=== PATIENT | male | born 1980 | race Hispanic/Latino ===

== ENCOUNTER 2019-06-29 18:58 | Emergency (ER) | payer SELFPAY ==
[2019-06-29 19:00] VITALS: BP 132/88; PULSE 72; RESP 16; TEMP 36.3; O2SAT 99
[2019-06-29 19:19] LABS: Glucose Point of Care 250 (65-105)
--- NOTE | 2019-06-29 19:59 | ED.RECABL ---
HPI - Recheck/Abnormal Lab/Rx General Chief Complaint: Recheck/Abnormal Lab/Rx Stated Complaint: ELEVATED BLOOD SUGAR Time Seen by Provider: 06/29/19 19:10 Source: patient Mode of arrival: EMS Limitations: language barrier (chinese speaking so I used video interpreter for the deaf ck) History of Present Illness HPI narrative: This patient is a 39 yo male with h/o DM type II who presents for evaluation of elevated blood sugars. Patient states he started back taking his metformin 2 weeks ago after being off the medication for a while. He has been checking his blood sugars every day and he states his BS is running from 200s -400. He called his primary care physician who told him to come to ER. He denies nausea, vomiting, chest pain, abdominal pain or weakness. He was having increased urination and that is why he started taking his medication again. Related Data Home Medications Medication Instructions Recorded Confirmed lovastatin 10 mg PO QPM 06/29/19 metformin 500 mg PO DAILY 06/29/19 Allergies Allergy/AdvReac Type Severity Reaction Status Date / Time No Known Allergies Allergy Verified 06/29/19 20:13 Review of Systems Review of Systems: All systems reviewed & are unremarkable except as noted in HPI and below Constitutional: Constitutional: Denies fever(s) and Denies weakness Cardiovascular: Cardiovascular: Denies chest pain Respiratory: Respiratory: Denies cough and Denies dyspnea Gastrointestinal: Gastrointestinal: Denies abdominal pain, Denies nausea and Denies vomiting Neurologic: Reports headache(s) Endocrine: Endocrine: Reports polydipsia and Reports polyuria [facility] Past Medical History Medical History (Updated 06/30/19 @ 00:00 by Mario Buck) Diabetes mellitus Hyperlipidemia Social History Social History (Updated 06/29/19 @ 20:01 by Marlyn Eckert MD) Smoking packs per day: 0 Smoking cigarettes per day: 0.0 Smoking status: Never smoker Exam Const: General: no acute distress and alert Nutritional Appearance: obese centrally obese Orientation/consciousness: patient oriented x3 HENMT: Head: normocephalic and atraumatic Mouth: Yes Normal oral and palatal mucosa present, Yes lip normal and Yes oropharynx normal Throat: posterior oropharynx normal Eyes: Pupils: Equal, round and reactive pupils present EOM: EOMs intact bilaterally Chest: Chest palpation & inspection: normal inspection of the chest Resp: Effort & Inspection: normal respiratory effort Auscultation: clear to auscultation bilaterally Cardio: Rate: regular rate Rhythm: regular rhythm Heart sounds: no murmurs GI: Auscultation: normal bowel sounds Skin: General skin exam: normal color Rashes: no rashes Neuro: General: patient oriented x3 and moves all extremities Extrem: General: no pedal edema Psych: Mental Status: mental status grossly normal Affect: normal affect Course Reevaluation(s) Reevaluation #1: I have discussed with patient that he will need to call office in the morning for appointment to make medication adjustments. Date: 06/29/19 Time: 20:46 Consultations Consultation #1: I spoke with Chas , advanced provider in Dr. Márquez office, who states she sees patients. She states patient can call office and they will get him in this week to make medication adjustments. Date: 06/29/19 Time: 20:45 Vital Signs Vital signs: Vital Signs Temperature 97.3 F L 06/29/19 19:00 Pulse Rate 72 06/29/19 19:00 Respiratory Rate 16 06/29/19 19:00 Blood Pressure 132/88 06/29/19 19:00 Pulse Oximetry 99 06/29/19 19:00 Temperature 97.8 F 06/29/19 21:21 Pulse Rate 71 06/29/19 21:21 Respiratory Rate 16 06/29/19 21:21 Blood Pressure 130/78 06/29/19 21:21 Pulse Oximetry 98 06/29/19 21:21 MDM - Recheck/Abnormal Lab/Rx Lab Data Attestation: I reviewed the patient's lab results. Result diagrams: 06/29/19 20:07 06/29/19 20:07 Labs:
[2019-06-29 20:15] LABS: Basophils Percent Auto 0.5 % (0.2-1.2); Eosinophils Absolute Auto 0.1 K/mm3 (0-0.3); Eosinophils Percent Auto 1.3 % (0-4.4); Hematocrit 45.6 % (42.0-52.0); Hemoglobin 16.4 g/dL (14.0-18.0); Immature Granulocyte Absolute 0.03 K/mm3 (0.00-0.031); Immature Granulocyte Percent A 0.5 % (0-0.5); Lymphocytes Absolute Auto 2.24 K/mm3 (0.9-3.2); Lymphocytes Percent Auto 36.9 % (18.3-44.2); Mean Corpuscular Volume 83.4 fl (80-100); Mean Platelet Volume 11.1 fl (7.4-10.4); Monocytes Absolute Auto 0.6 K/mm3 (0.1-0.6); Monocytes Percent Auto 9.4 % (2.6-8.5); Neutrophils Absolute Auto 3.1 K/mm3 (1.3-6.7); Neutrophils Percent Auto 51.4 % (45.5-73.1); Platelet Count Result 189 k/mm3 (150-375); Red Blood Count 5.47 M/mm3 (4.6-6.20); Red Cell Distribution Width 11.9 % (11.5-14.5); White Blood Count 6.1 K/mm3 (4.5-10.0)
[2019-06-29] MEDS: SODIUM CHLORIDE 0.9% IV 1,000 ML 999 ML IV CONT (20:16)
[2019-06-29 20:22] LABS: Add Urine Microscopic? YES; Appearance Urine Clear (Clear); Bilirubin Urine Negative (Negative); Blood Urine Negative (Negative); Color Urine Yellow (Yellow); Glucose Urine UA 2+ mg/dL (Negative); Ketones Urine Negative (Negative); Leukocyte Esterase Ur Negative LEU/UL (Negative); Mucus Urine Few /lpf; Nitrate Urine Negative (Negative); Protein Urine Negative (Negative); RBC Urine 0-2 /hpf (0-2); Specific Grav Ur 1.014 (1.001-1.035); Urobilinogen Urine Negative mg/dL (<2.0); WBC Urine 0-3 /hpf
[2019-06-29 20:30] LABS: Alanine Aminotransferase 45 U/L (4-50); Albumin Level 4.8 g/dL (3.5-5.1); Alkaline Phosphatase 117 U/L (38-126); Aspartate Amino Transferase 36 U/L (17-59); Bilirubin,Total 0.6 mg/dL (0.2-1.3); Blood Urea Nitrogen 10 mg/dL (9-20); Calcium 9.1 mg/dL (8.4-10.2); Carbon Dioxide 23 mmol/L (22-30); Chloride 103 mmol/L (98-107); Estimated CRCL calculation 108 ml/min; Estimated Glomerular Filt Rate > 60; Glucose 245 mg/dL (75-110); Potassium 4.1 mmol/L (3.4-5.0); Sodium 137 mmol/L (137-145)
[2019-06-29 21:21] VITALS: BP 130/78; PULSE 71; RESP 16; TEMP 36.6; O2SAT 98
== END 2019-06-29 21:24 | disposition home or self-care (01) ==
PROVIDERS: Emergency Provider General Practice
DX: E11.65 Type 2 diabetes mellitus with hyperglycemia (principal); E78.5 Hyperlipidemia, unspecified; Z79.84 Long term (current) use of oral hypoglycemic drugs
CPT/HCPCS: 36415; 80053; 81001; 82948; 85025; 96360; 99283; J7030

== ENCOUNTER 2019-12-27 13:25 | Emergency (ER) | payer MEDICAID, SELFPAY ==
--- NOTE | ~2019-12-27 | CT_ITS ---
EXAMINATION: CT abdomen pelvis w con DATE: 12/27/2019 15:15 INDICATION: Right flank pain. Generalized abdominal pain. TECHNIQUE: Computed tomography (CT) of the abdomen and pelvis was performed with 100 mL Omnipaque 350 intravenous contrast. Automated exposure control and iterative reconstruction technique were employe d. The dose-length product was 1022.66 mGy-cm. COMPARISON: None. FINDINGS: The visualized portions of the lung bases demonstrate patchy airspace and groundglass opaci ties in the lower lobes, lingula, and right middle lobe, consistent with pneumonia. No pleural effusi on. The heart size is normal. No pericardial effusion. The liver, gallbladder, spleen, pancreas, adre nal glands, and right kidney are normal. There is a 14 mm hypodense mass in left kidney. There are no dilated loops of bowel. The appendix is normal. There are no pathologically enlarged lymph nodes. Th ere is no free intraperitoneal fluid. There is mild lumbar spondylosis. IMPRESSION: 1. Multifocal pneumonia. 2. 14 mm left kidney mass, which may be a hemorrhagic cyst or less likely a neoplasm. Consider abdome n MRI without and with contrast. Reviewed, dictated and finalized at location A. ER SULFATE IMPRESSION: 1. Multifocal pneumonia. 2. 14 mm left kidney mass, which may be a hemorrhagic cyst or less likely a jorge plasm. Consider abdomen MRI without and with contrast.
--- NOTE | ~2019-12-27 | CT_ITS ---
EXAMINATION: CT brain wo con EXAM DATE: 12/27/2019 14:24 INDICATION: Right eye pain and and worst headache of life. TECHNIQUE: Spiral CT of the head was performed without contrast. Axial, coronal and sagittal images were reviewed. The dose-length product (DLP) for this examination was 605.33 mGy-cm. The exposure w as tailored according to patient size, and iterative reconstruction (ASIR) was used as additional dos e reduction technique. There is no prior study for comparison. FINDINGS: There is no acute intraparenchymal hemorrhage. No evidence of intraparenchymal brain mass lesion. No evidence of acute infarction. There is no mass effect or midline shift. The ventricles are normal in size. There are no extra-axial collections. There are no acute calvarial fractures. T he orbits are unremarkable. Soft tissue is unremarkable. The visualized sinuses and mastoid air juan ls are well aerated. IMPRESSION: 1. Normal head CT examination. Reviewed, dictated and finalized at location B. T POURER
--- NOTE | ~2019-12-27 | XR_ITS ---
EXAMINATION: XR chest 1V INDICATION: Fever and headache TECHNIQUE: Portable AP chest at AP COMPARISON: None available FINDINGS: There are diffuse airspace opacities of the lungs. No pleural effusion or pneumothorax is i dentified. The cardiomediastinal silhouette is normal. The visualized osseous structures are unremark able. Contrast from earlier CT examination partially opacifies the urinary tract. IMPRESSION: 1. Diffuse lung disease, consistent with pneumonia. Reviewed, dictated and finalized at location A. N CLEANER
[2019-12-27 13:43] VITALS: BP 134/79; PULSE 95; RESP 27; TEMP 37.1; O2SAT 93
[2019-12-27 14:09] VITALS: BP 127/81; PULSE 96; RESP 20; TEMP 39.2; O2SAT 93
[2019-12-27 14:14] LABS: Hematocrit 40.1 % (42.0-52.0); Hemoglobin 13.9 g/dL (14.0-18.0); Immature Granulocyte Absolute 0.02 K/mm3 (0.00-0.031); Immature Granulocyte Percent A 0.5 % (0-0.5); Immature Platelet Fraction Pct 3.3 % (0.9-11.2); Lymphocytes Absolute Auto 0.68 K/mm3 (0.9-3.2); Lymphocytes Percent Auto 17.4 % (18.3-44.2); Mean Corpuscular HGB Conc 34.7 g/dl (32-36); Mean Corpuscular Hemoglobin 30.6 pg (26-34); Mean Corpuscular Volume 88.3 fl (80-100); Mean Platelet Volume 10.1 fl (7.4-10.4); Monocytes Absolute Auto 0.3 K/mm3 (0.1-0.6); Monocytes Percent Auto 7.2 % (2.6-8.5); Neutrophils Absolute Auto 2.9 K/mm3 (1.3-6.7); Neutrophils Percent Auto 74.9 % (45.5-73.1); Platelet Count Result 135 k/mm3 (150-375); Red Blood Count 4.54 M/mm3 (4.6-6.20); Red Cell Distribution Width 12.4 % (11.5-14.5); White Blood Count 3.9 K/mm3 (4.5-10.0)
[2019-12-27 14:22] LABS: INR 0.9; Prothrombin Time 12.6 Seconds (11.1-14.7)
[2019-12-27 14:23] LABS: Partial Thromboplastin Time 31.5 SECONDS (22.3-36.8)
[2019-12-27 14:32] LABS: Alanine Aminotransferase 53 U/L (4-50); Albumin Level 4.1 g/dL (3.5-5.1); Alkaline Phosphatase 80 U/L (38-126); Anion Gap 6 mmol/L (8-16); Aspartate Amino Transferase 73 U/L (17-59); Bilirubin,Total 0.6 mg/dL (0.2-1.3); Blood Urea Nitrogen 12 mg/dL (9-20); Calcium 8.6 mg/dL (8.4-10.2); Carbon Dioxide 29 mmol/L (22-30); Chloride 99 mmol/L (98-107); Estimated CRCL calculation 96 ml/min; Estimated Glomerular Filt Rate > 60; Glucose 135 mg/dL (75-110); Potassium 3.8 mmol/L (3.4-5.0); Sodium 134 mmol/L (137-145)
[2019-12-27 14:37] LABS: Amphetamine Screen Urine Negative (Negative); Barbiturate Screen Urine Negative (Negative); Benzodiazepines Screen Urine Negative (Negative); Cannabinoid Screen Urine Negative (Negative); Cocaine Screen Urine Negative (Negative); Methadone Screen Urine Negative (Negative); Opiate Screen Urine Negative (Negative); Phencyclidine Screen Urine Negative (Negative)
[2019-12-27 14:40] VITALS: BP 116/82; PULSE 89; RESP 14; TEMP 38.7; O2SAT 93
[2019-12-27 14:42] LABS: Creatine Kinase 565 U/L (55-170)
[2019-12-27] MEDS: SODIUM CHLORIDE 0.9% IV 1,000 ML 999 ML IV CONT (15:01)
[2019-12-27 15:02] LABS: Erythrocyte Sedimentation Rate 20 mm/hr (0-20)
--- NOTE | 2019-12-27 15:24 | ED.GENADULT ---
HPI - General Adult General Chief complaint: Headache Stated complaint: abd, leg, youssef Time Seen by Provider: 12/27/19 13:41 Source: patient Mode of arrival: ambulatory Limitations: no limitations History of Present Illness HPI narrative: Patient presents with chief complaint of pain behind his right that has been present since Wednesday. Patient denies any trauma to the eye or debris going into the eye. Patient states he took Tylenol and ibuprofen but his symptoms did not remit. Patient denies vision changes, flashes, floaters. Patient denies problems to phobia, nausea, vomiting, diaphoresis. Patient states the other day while he was working he had pain in both of his legs into his left groin but he does not have the pain currently. Patient denies fever, chills, abdominal pain, neck stiffness, issues with urination, shortness of breath or chest pain, cough, rash, loss of taste or smell, sore throat. Related Data Home Medications Medication Instructions Recorded Confirmed lovastatin 10 mg PO QPM 06/29/19 metformin 500 mg PO DAILY 06/29/19 Allergies Allergy/AdvReac Type Severity Reaction Status Date / Time No Known Allergies Allergy Verified 12/27/19 13:46 Review of Systems Review of Systems: Narrative: CONSTITUTIONAL: Denies fever, chills, or sweats. EYES: Reports right eye pain denies visual changes, redness, or discharge. ENT: Denies rhinorrhea, congestion, sore throat, or otalgia. CARDIOVASCULAR: Denies chest pain, palpitations, or edema. RESPIRATORY: Denies cough or dyspnea. GASTROINTESTINAL: Denies abdominal pain, nausea, vomiting, or diarrhea. GENITOURINARY: Denies dysuria or hematuria. SKIN: Denies rash or itching. MUSCULOSKELETAL: Denies back pain, joint pain, or myalgia. NEUROLOGIC: Denies numbness, dizziness, or weakness. PMFSH Past Medical History Medical History (Updated 12/27/19 @ 16:34 by Vanessa Caro PA-C) Diabetes mellitus Hyperlipidemia Social History Social History (Updated 06/29/19 @ 20:01 by Marlyn Eckert MD) Smoking packs per day: 0 Smoking cigarettes per day: 0.0 Smoking status: Never smoker Exam Narrative: Exam Narrative: GENERAL: Well-appearing, well-nourished, and in no acute distress. HEAD: Normocephalic, atraumatic. No tenderness with palpation over temporal region. EYES: PERRLA and EOMI. no erythema. No hyphema. No subconjunctival injection. ENT: Nares clear, no rhinorrhea or epistaxis. Mucous membranes moist. Oropharynx without tonsillar hypertrophy exudate or other lesions. Bilateral TMs pearly finn nonbulging NECK: Supple. No adenopathy or masses. No carotid bruits or JVD CHEST: Clear to auscultation. No respiratory distress. No wheezes rales or rhonchi HEART: Regular rate and rhythm. No murmur heard. Normal peripheral pulses. ABDOMEN: Soft, nontender, nondistended, normal active bowel sounds. EXTREMITIES: Normal range of motion. No edema. SKIN: Warm, dry, no rash. NEURO: No focal deficits. Alert and oriented x3. PSYCH: Normal mood and affect. Course Vital Signs Vital signs: Vital Signs Temperature 98.8 F 12/27/19 13:43 Pulse Rate 95 12/27/19 13:43 Respiratory Rate 27 H 12/27/19 13:43 Blood Pressure 134/79 12/27/19 13:43 Pulse Oximetry 93 12/27/19 13:43 Temperature 101.6 F H 12/27/19 14:40 Pulse Rate 78 12/27/19 16:21 Respiratory Rate 18 12/27/19 16:21 Blood Pressure 132/73 12/27/19 16:21 Pulse Oximetry 94 12/27/19 16:21 Medical Decision Making MDM Narrative Medical decision making narrative: Patient is not short of breath and can ambulate with appropriate O2 saturations between 94 to 95% on room air. Patient has been tested for Covid and instructed of the need to isolate himself and follow the health department guidelines regarding Covid quarantine instructions. Patient instructed to follow-up with his primary care for reevaluation. Patient directed to return to emergency department if he has any emergent sym
[2019-12-27 16:21] VITALS: BP 132/73; PULSE 78; RESP 18; O2SAT 94
[2019-12-28 03:00] LABS: SARS-CoV-2 RNA PCR Positive
== END 2019-12-27 17:16 | disposition home or self-care (01) ==
PROVIDERS: Physician Assistant; Emergency Provider Emergency Medicine
DX: U07.1 COVID-19 (principal); J12.89 Other viral pneumonia; N28.89 Other specified disorders of kidney and ureter
CPT/HCPCS: 36415; 70450; 71045; 74177; 80053; 80307; 82550; 85025; 85055; 85610; 85652; 85730; 87635; 87804; 96361; 96374; 99284; C9803; J0131; J7030; Q9967; U0003

== ENCOUNTER 2019-12-31 13:46 | Inpatient (IN) | payer MEDICAID, OTHER, SELFPAY ==
--- NOTE | ~2019-12-31 | US_ITS ---
EXAMINATION: US venous doppler [facility] DATE: 12/31/2019 15:27 INDICATION: Lower limb pain TECHNIQUE: Clement scale images without and with compression and Doppler images of the bilateral lower e xtremity veins were obtained. COMPARISON: None FINDINGS: The right common femoral vein, profunda femoral vein, femoral vein, popliteal vein, peroneal trunk, p osterior tibial veins, and greater saphenous vein are patent. The left common femoral vein, profunda femoral vein, femoral vein, popliteal vein, peroneal trunk, po sterior tibial veins, and greater saphenous vein are patent. IMPRESSION: 1. Patent bilateral lower extremity veins. No evidence of deep venous thrombosis. Reviewed, dictated and finalized at location A. RINTENDENT BUILDING IMPRESSION: 1. Patent bilateral lower extremity veins. No evidence of deep venous thrombosi s.
--- NOTE | ~2019-12-31 | XR_ITS ---
EXAMINATION: XR chest 1V portable DATE: 12/31/2019 14:08 INDICATION: Shortness of breath. COVID-19 pneumonia. TECHNIQUE: A single frontal view of the chest was obtained. COMPARISON: Chest single view 12/27/19, CT abdomen and pelvis 12/27/19 FINDINGS: There are patchy airspace opacities involving all lung zones bilaterally. No pleural effusi on or pneumothorax. The heart size is normal. IMPRESSION: 1. Worsened diffuse lung disease, consistent with pneumonia. Reviewed, dictated and finalized at location A. S OPERATOR [employer]ON BLOCKS
--- NOTE | ~2019-12-31 | CT_ITS ---
EXAMINATION: CTA chest PE protocol DATE: 12/31/2019 15:50 INDICATION: Shortness of breath and cough, COVID 19 positive TECHNIQUE: Computed tomography angiography (CTA) of the chest was performed with 100 mL Omnipaque-350 intravenous contrast timed to evaluate the pulmonary arteries. Coronal maximum intensity projection 3D-reconstructions were created by the technologist. The dose-length product (DLP) was 694.87 mGy-cm. Automated exposure control and iterative reconstruction technique were employed. COMPARISON: None. FINDINGS: Respiratory motion artifact limits the examination. The pulmonary arteries are well-opacifi ed. No central pulmonary embolism is identified. There are patchy groundglass and airspace opacities with a peripheral and lower lung zone predominance. No pleural effusion or pneumothorax is identified . The heart size is normal. There is mild bilateral hilar and mediastinal lymphadenopathy. The visual ized osseous structures are unremarkable. IMPRESSION: 1. No central pulmonary embolism identified, sensitivity limited by respiratory motion artifact. 2. Commonly reported imaging features of COVID-19 pneumonia are present. Other processes such as infl uenza pneumonia and organizing pneumonia can cause a similar imaging pattern although these are less likely given that the patient is known COVID 19 positive. Reviewed, dictated and finalized at location A. NCIAL ANALYST ACCOUNTANT IMPRESSION: 1. No central pulmonary embolism identified, sensitivity limited by respiratory motion artifact. 2. Commonly reported imaging features of COVID-19 pneumonia are present. Other processes such as influenza pneumonia and organizing pneumonia can cause a zee lar imaging pattern although these are less likely given that the patient is kn own COVID 19 positive.
[2019-12-31 13:46] VITALS: BP 126/78; PULSE 94; RESP 20; TEMP 36.7; O2SAT 87
--- NOTE | 2019-12-31 14:34 | ED.URI ---
HPI - URI/Sore Throat General Chief Complaint: Upper Respiratory Infection Stated Complaint: sob Time Seen by Provider: 12/31/19 13:48 Source: patient Mode of arrival: EMS Limitations: language barrier (used video director of safety) History of Present Illness HPI Narrative: Patient presents to the emergency department for increasing shortness of breath. Reports he was recently seen here and swabbed for covid. He is unsure of his results. He has had cough and congestion. Reports difficulty breathing with cough and exertion. Also reports bilateral lower extremity pain when he walks. Reports chest pain with breathing. Denies fever. Related Data Home Medications Medication Instructions Recorded Confirmed lovastatin 10 mg PO QPM 06/29/19 12/31/19 metformin 500 mg PO BID 06/29/19 12/31/19 Lexapro 10 mg PO DAILY 12/31/19 12/31/19 ProAir HFA 2 puff INHALATION QID 12/31/19 12/31/19 Allergies Allergy/AdvReac Type Severity Reaction Status Date / Time No Known Allergies Allergy Verified 12/31/19 13:57 Review of Systems Review of Systems: Narrative: CONSTITUTIONAL: Denies fever ENT: Reports rhinorrhea, congestion CARDIOVASCULAR: Reports chest pain. Denies edema. RESPIRATORY: Reports cough and dyspnea. MUSCULOSKELETAL: Reports myalgia. All systems reviewed & are unremarkable except as noted in HPI and below PMFSH Past Medical History Medical History (Updated 12/31/19 @ 22:22 by Cristy Mckeon PA-C) Diabetes mellitus Hyperlipidemia Social History Social History (Updated 06/29/19 @ 20:01 by Marlyn Eckert MD) Smoking packs per day: 0 Smoking cigarettes per day: 0.0 Smoking status: Former smoker Alcohol intake: current Drinks per week: 1 Substance use: former Last use: 1 yr ago Gender identity (if verbalized by the patient): Male Spiritual care concerns: No Exam Narrative: Exam Narrative: GENERAL: Well-appearing, obese, and in no acute distress. HEAD: Normocephalic, atraumatic. EYES: EOMI. ENT: Nares clear, no rhinorrhea or epistaxis. Mucous membranes moist. Oropharynx without tonsillar hypertrophy exudate or other lesions. Bilateral TMs pearly finn non-bulging NECK: Supple. No adenopathy or masses. CHEST: Clear to auscultation. No respiratory distress. No wheezes rales or rhonchi HEART: Regular rate and rhythm. No murmur heard. Normal peripheral pulses. EXTREMITIES: Normal range of motion. No edema or erythema. SKIN: Warm, dry, no rash. NEURO: No focal deficits. Alert and oriented x3. PSYCH: Normal mood and affect Course Consultations Consultation #1: Spoke with hospitalist about patient work-up accepts admission Date: 12/31/19 Vital Signs Vital signs: Vital Signs Temperature 98.0 F 12/31/19 13:46 Pulse Rate 94 12/31/19 13:46 Respiratory Rate 20 12/31/19 13:46 Blood Pressure 126/78 12/31/19 13:46 Pulse Oximetry 87 L 12/31/19 13:46 Temperature 98.8 F 12/31/19 20:00 Pulse Rate 80 12/31/19 20:00 Respiratory Rate 18 12/31/19 20:00 Blood Pressure 113/64 12/31/19 20:00 Pulse Oximetry 98 12/31/19 20:00 MDM - URI/Sore Throat MDM Narrative Medical decision making narrative: Patient presents to the emergency department for worsening shortness of breath. Was recently diagnosed with coronavirus. Oxygen saturation in the upper 80s on room air. Placed on 4 L nasal cannula with normal oxygen saturation. CBC is without concerning findings. Metabolic panel is without concerning changes. LDH and ferritin are elevated. Lactic acid is normal. Baseline troponin is negative. D-dimer was obtained which was elevated. Bilateral lower extremity venous Dopplers without evidence of DVT. CTA of the chest is without evidence of PE. Does show diffuse lung disease consistent with COVID-19 pneumonia. Patient will be admitted for further treatment. Given first dose of Decadron in the ED. Spoke with hospitalist about patient work-up accepts admission Lab Data Attestation: I r
[2019-12-31 14:45] LABS: Basophils Percent Auto 0.2 % (0.2-1.2); Hematocrit 38.3 % (42.0-52.0); Hemoglobin 13.4 g/dL (14.0-18.0); Immature Granulocyte Absolute 0.03 K/mm3 (0.00-0.031); Immature Granulocyte Percent A 0.5 % (0-0.5); Lymphocytes Absolute Auto 0.95 K/mm3 (0.9-3.2); Lymphocytes Percent Auto 14.8 % (18.3-44.2); Mean Corpuscular Hemoglobin 30.5 pg (26-34); Mean Corpuscular Volume 87.2 fl (80-100); Mean Platelet Volume 9.2 fl (7.4-10.4); Monocytes Absolute Auto 0.2 K/mm3 (0.1-0.6); Monocytes Percent Auto 3.7 % (2.6-8.5); Neutrophils Absolute Auto 5.2 K/mm3 (1.3-6.7); Neutrophils Percent Auto 80.8 % (45.5-73.1); Platelet Count Result 205 k/mm3 (150-375); Red Blood Count 4.39 M/mm3 (4.6-6.20); Red Cell Distribution Width 12.3 % (11.5-14.5); White Blood Count 6.4 K/mm3 (4.5-10.0)
[2019-12-31 14:54] LABS: INR 0.9; Prothrombin Time 12.7 Seconds (11.1-14.7)
[2019-12-31 14:57] LABS: D Dimer 1.42 ug/mL (<0.48)
[2019-12-31 14:59] LABS: Alanine Aminotransferase 42 U/L (4-50); Albumin Level 3.8 g/dL (3.5-5.1); Alkaline Phosphatase 61 U/L (38-126); Anion Gap 7 mmol/L (8-16); Aspartate Amino Transferase 46 U/L (17-59); Bilirubin,Total 0.7 mg/dL (0.2-1.3); Blood Urea Nitrogen 7 mg/dL (9-20); CRP 7.5 mg/dL (<1.0); Calcium 8.3 mg/dL (8.4-10.2); Carbon Dioxide 30 mmol/L (22-30); Chloride 95 mmol/L (98-107); Estimated CRCL calculation 111 ml/min; Estimated Glomerular Filt Rate > 60; Glucose 187 mg/dL (75-110); Lactate Dehydrogenase 1222 U/L (313-618); Lactic Acid Reflex 1.7 mmol/L (0.7-2.1); Potassium 3.9 mmol/L (3.4-5.0); Sodium 132 mmol/L (137-145)
[2019-12-31 15:13] LABS: Troponin I < 0.012 ng/mL (0.000-0.034)
[2019-12-31] MEDS: DEXAMETHASONE SOD PHOS INJ 4 MG/ML VIAL 6 MG IV PUSH (15:54)
[2019-12-31 16:03] VITALS: BP 129/74; PULSE 86; RESP 18; O2SAT 98
--- NOTE | 2019-12-31 16:30 | ECG_ITS ---
Measurements Intervals [place] Rate: 94 P: 43 HI: 144 QRS: 18 QRSD: 74 T: 25 QT: 309 QTc: 387 Interpretive Statements SINUS RHYTHM BASELINE ARTIFACT- I, III, AVR, AVL, AVF, V1 NORMAL ECG Electronically Signed On 01-01-2020 8:36:06 BEAUTY CULTURIST by Derek Urias D.O.
[2019-12-31 17:14] VITALS: BP 99/64; PULSE 82; RESP 19; O2SAT 98
[2019-12-31 17:40] VITALS: O2SAT 98
[2019-12-31 18:31] VITALS: BP 107/65; PULSE 83; RESP 18; TEMP 37.4; O2SAT 94
--- NOTE | 2019-12-31 18:56 | ADMGEN ---
This patient, Joseph Calvillo, was admitted to [address] [facility] Surg Room 321-01. Patient/family oriented to hospital policies and general routines including ID bracelet, bed and alarms, visiting hours, pain management, procedures, bathroom and other care routines, personal items, smoking policy, room service/diet, and visiting hours. Information on how to activate the Rapid Response Team has been discussed. Patient/Family are encouraged to report perceived risks to care and to ask questions if they do not understand what they are told or what they should do.
[2019-12-31 20:00] VITALS: BP 113/64; PULSE 80; PULSE 88; RESP 18; TEMP 37.1; O2SAT 98
[2019-12-31 21:25] LABS: Glucose Point of Care 293 (65-105)
--- NOTE | 2019-12-31 22:22 | PM.IMHP ---
H&P: HPI History of Present Illness Date/Time: 12/31/19 22:23 Chief complaint: CORONAVIRUS PNEUMONIA,ACUE RESPIRATORY FAILURE WIT Narrative: Joseph Calvillo is a 39 year old male Who had came to the emergency room on 12/27/2019. He was having pain behind his right eye that started this past Wednesday he had no trauma. The patient was tested for COVID 19 on that ER visit. The patient's oxygen level was between 9495 5%. He was instructed to be on 14. He states that his is feeling fine. He was instructed to come back to the emergency room if he had any emergent symptoms. His fever was 101.6 at the time. In the meantime patient's COVID test came back positive. Today the patient came into the emergency room for increasing shortness of breath. He was not aware that he turned positive on his COVID test. He has a cough fever and congestion. He was having difficulty breathing because of the coughing. To me he complains of no pain but he told them that he has pain in his lower extremities when he walks. Patient tells me he has not been taking his medication for his diabetes. A chest CTA was performed and was read as no central pulmonary embolism identified commonly reported imaging feature of COVID-19 pneumonia. Chest x-ray was reported as worsened diffuse lung disease consistent with pneumonia. The patient was started on Decadron. On the the patient also had an abdominal pelvis CT which read a 14 mm left kidney stone which may be her Magic cyst are least likely neoplasm consider abdominal MRI with and without contrast. The patient is being admitted to inpatient medical floor on isolation date of service 12/31/2019 Review of Systems Review of Systems: Narrative: the patient is Latvian-speaking we did use the gDine for some of the interpretation otherwise we were able to communicate somewhat. All systems reviewed & are unremarkable except as noted in HPI and below Constitutional: Constitutional: Reports as per HPI and Reports no additional constitutional complaints Eyes: Eyes: Reports as per HPI and Reports no additional eye complaints ENT: Reports system reviewed and no additional complaints, except as documented and Reports Normal hearing present Cardiovascular: Cardiovascular: Reports no additional cardiovascular complaints Respiratory: Respiratory: Reports no additional respiratory complaints and Reports no additional respiratory complaints Gastrointestinal: Gastrointestinal: Reports as per HPI and Reports no additional gastrointestinal complaints Musculoskeletal: Musculoskeletal: Reports no additional musculoskeletal complaints Integumentary/Breasts: Skin/Breast: Reports system reviewed and no additional complaints, except as docu and Reports as per HPI Neurologic: Reports system reviewed and no additional complaints, except as documented, Reports as per HPI and Reports Normal hearing present Psychiatric: Psychiatric: Reports no additional psychiatric complaints and Reports as per HPI Endocrine: Endocrine: Reports no additional endocrine complaints Hematologic/Lymphatic: Hematologic/Lymphatic: Reports no additional hematologic/lymphatic complaints Allergic/Immunologic: Allergic/Immunologic: Reports no additional allergic/immunologic complaints PMFSH Past Medical History Medical History (Updated 12/31/19 @ 22:47 by Melinda Gonzalez NP) Depression with anxiety Diabetes mellitus Hyperlipidemia Surgical History Surgical History (Updated 12/31/19 @ 22:34 by Melinda Gonzalez NP) No history of previous surgery Family History Family History (Updated 12/31/19 @ 22:34 by Melinda Gonzalez NP) Unknown Family history unknown Social History Social History (Updated 12/31/19 @ 22:35 by Melinda Gonzalez NP) Social History: the patient tells me that he is and lives with his . 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 His is a durable power attorne
[2019-12-31] MEDS: guaiFENesin/DEXTROMETHORPHAN 10 ML UDC PO (23:37)
[2020-01-01] VITALS (10 sets, daily range): BP systolic 104–112; BP diastolic 65–69; PULSE 54–83; RESP 18–22; TEMP 36.1–36.9; O2SAT 90–96
[2020-01-01] MEDS: REMDESIVIR 200 MG/NS 250 ML 200 MG/250 ML BAG 250 MG IVPB (00:18)
[2020-01-01 06:44] LABS: Basophils Percent Auto 0.2 % (0.2-1.2); Hemoglobin 14.5 g/dL (14.0-18.0); Immature Granulocyte Absolute 0.03 K/mm3 (0.00-0.031); Immature Granulocyte Percent A 0.6 % (0-0.5); Lymphocytes Percent Auto 12.9 % (18.3-44.2); Mean Corpuscular HGB Conc 35.4 g/dl (32-36); Mean Corpuscular Hemoglobin 30.7 pg (26-34); Mean Corpuscular Volume 86.7 fl (80-100); Mean Platelet Volume 9.4 fl (7.4-10.4); Monocytes Absolute Auto 0.3 K/mm3 (0.1-0.6); Monocytes Percent Auto 4.6 % (2.6-8.5); Neutrophils Absolute Auto 4.5 K/mm3 (1.3-6.7); Neutrophils Percent Auto 81.7 % (45.5-73.1); Platelet Count Result 232 k/mm3 (150-375); Red Blood Count 4.73 M/mm3 (4.6-6.20); Red Cell Distribution Width 11.9 % (11.5-14.5); White Blood Count 5.4 K/mm3 (4.5-10.0)
[2020-01-01 06:53] LABS: Alanine Aminotransferase 69 U/L (4-50); Albumin Level 3.8 g/dL (3.5-5.1); Alkaline Phosphatase 66 U/L (38-126); Anion Gap 7 mmol/L (8-16); Aspartate Amino Transferase 61 U/L (17-59); Bilirubin,Total 0.6 mg/dL (0.2-1.3); Blood Urea Nitrogen 11 mg/dL (9-20); CRP 8.6 mg/dL (<1.0); Calcium 9.1 mg/dL (8.4-10.2); Carbon Dioxide 31 mmol/L (22-30); Chloride 99 mmol/L (98-107); Estimated CRCL calculation 111 ml/min; Estimated Glomerular Filt Rate > 60; Glucose 240 mg/dL (75-110); Lactate Dehydrogenase 1237 U/L (313-618); Magnesium 2.1 mg/dL (1.6-2.3); Potassium 4.5 mmol/L (3.4-5.0); Sodium 137 mmol/L (137-145)
[2020-01-01] MEDS: guaiFENesin/DEXTROMETHORPHAN 10 ML UDC PO ×2 (08:32→19:47)
[2020-01-01] MEDS: ESCITALOPRAM OXALATE 10 MG TABLET PO (08:32)
[2020-01-01] MEDS: INSULIN ASPART (*BKC) 100 UNITS/ML SUB-Q ×3 (08:39→18:06)
[2020-01-01] MEDS: ALBUTEROL SULFATE (*SP) AEROSOL 1 PUFF 2 PUFF INHALATION ×4 (09:05→20:44)
[2020-01-01] MEDS: DEXAMETHASONE SOD PHOS INJ 4 MG/ML VIAL 6 MG IV PUSH (13:01)
[2020-01-01 13:32] LABS: Glucose Point of Care 208 (65-105)
[2020-01-01 13:32] LABS: Glucose Point of Care 245 (65-105)
--- NOTE | 2020-01-01 17:54 | PM.IMPN ---
Progress Note: A&P Assessment and Plan (1) Pneumonia due to 2019 novel coronavirus: Code(s): U07.1 - COVID-19; J12.89 - Other viral pneumonia Status: Acute Assessment and Plan: Chest CTA has finding suggestive of COVID pneumonia. COVID positive; tested on 12/26. He is now saturating in 90s on 4L O2. Clinically he appears to have improved, and he feels okay somewhat better today, although his oxygen requirements remain at 4L NC. CTA chest and Venous Doppler b/l LE negative for VTE. Continue with IV Decadron daily. Initiated on 12/30 (day 2) Continue with IV Remdesivir. Initiated on 12/31 at midnight (Dose #2/5 today) Will do daily Lovenox for DVT ppx Continue supportive care with mucinex, albuterol, tylneol as needed Wean O2 as tolerated monitor closely (2) Acute respiratory failure due to COVID-19: Code(s): U07.1 - COVID-19; J96.00 - Acute respiratory failure, unspecified whether with hypoxia or hypercapnia Status: Acute Assessment and Plan: Likely due to COVID pneumonia. PE less likely given CTA results as above. Patient on 4L o2 NC. Continue treatment for COVID pneumonia as above Wean O2 as tolerated (3) Diabetes mellitus: Code(s): E11.9 - Type 2 diabetes mellitus without complications Status: Chronic Assessment and Plan: BGL 200s. Likely elevated due to infection/steroid. A1c 6.0 Accuchecks ACHS, hypoglycemia protocol, correctional insulin, diabetic diet Metformin held (4) Hyperlipidemia: Code(s): E78.5 - Hyperlipidemia, unspecified Status: Chronic Assessment and Plan: Statins on hold (5) Depression with anxiety: Code(s): F41.8 - Other specified anxiety disorders Status: Chronic Assessment and Plan: No acute issues Continue with Lexapro. (6) Renal mass: Code(s): N28.89 - Other specified disorders of kidney and ureter Status: Acute Assessment and Plan: CT abd/pelvis on 12/26 showed 1.4 cm mass on left kidney; possible hemorrhagic cyst. Proceeding with MRI of abdomen was discussed earlier in stay, however, there is issues obtaining this due to his COVID diagnosis; this was ordered at admission and has been put on hold for now. If not performed during stay, this will have to be done as an outpatient. Discussed with my collaborative in regards to possibility of being a hemorrhagic cyst and decided to initiate low dose Lovenox for DVT ppx Subjective Date/time seen: 01/01/20 17:54 Interval history: Patient is a 39 yo M with history of DM, HLD, and depression with anxiety who is seen in follow up for COVID pneumonia and subsequent acute respiratory failure with hypoxia. Patient speaks Kyrgyz as his first language and telecommunicator supervisor used during his visit for communication. Patient tells me he feels somewhat better this evening. He still has occasional cough that is nonbloody. He is eating and drinking okay. He is sob when moving around the room. He had some fevers/chills this morning, but have improved. No other complaints. Denies current f/c/s, headaches, cp/palpitations, n/v/d/c, abd pain, changes in BMs, dysuria, calf pain/swelling. Review of Systems Review of Systems: All systems reviewed & are unremarkable except as noted in HPI and below Exam Narrative: Exam Narrative: General: Patient sitting upright in chair at time of visit in no acute distress. Surface Ship Usw Supervisor used during visit HEENT: Normocephalic, EOMI, oral mucosa moist. Cardiovascular: Rate and rhythm are regular. No notable murmur, rub, or gallop. Respiratory: Coarse lung sounds. Non-labored breathing. On 4L O2 NC at time of visit. Speaks in full sentences Abdomen: Soft, non-tender, non-distended, bowel sounds present. Ex
[2020-01-01 18:14] LABS: Glucose Point of Care 249 (65-105)
[2020-01-01] MEDS: REMDESIVIR 100 MG/NS 250 ML 100 MG/250 ML BAG 250 MG IVPB (19:47)
[2020-01-01 20:52] LABS: Glucose Point of Care 328 (65-105)
[2020-01-01] MEDS: INSULIN GLARGINE (*BKC) 100 UNITS/ML 12 UNITS SUB-Q (21:09)
[2020-01-02] VITALS (10 sets, daily range): BP systolic 98–123; BP diastolic 67–76; PULSE 49–75; RESP 16–20; TEMP 36.2–36.9; O2SAT 91–98; BMI 35.1
[2020-01-02] MEDS: guaiFENesin/DEXTROMETHORPHAN 10 ML UDC PO ×5 (04:18→22:55)
[2020-01-02 06:42] LABS: Basophils Percent Auto 0.1 % (0.2-1.2); Hematocrit 37.4 % (42.0-52.0); Immature Granulocyte Absolute 0.09 K/mm3 (0.00-0.031); Immature Granulocyte Percent A 1.3 % (0-0.5); Lymphocytes Absolute Auto 0.91 K/mm3 (0.9-3.2); Lymphocytes Percent Auto 13.1 % (18.3-44.2); Mean Corpuscular HGB Conc 34.8 g/dl (32-36); Mean Corpuscular Hemoglobin 29.7 pg (26-34); Mean Corpuscular Volume 85.4 fl (80-100); Mean Platelet Volume 9.4 fl (7.4-10.4); Monocytes Absolute Auto 0.5 K/mm3 (0.1-0.6); Neutrophils Absolute Auto 5.5 K/mm3 (1.3-6.7); Neutrophils Percent Auto 78.5 % (45.5-73.1); Platelet Count Result 300 k/mm3 (150-375); Red Blood Count 4.38 M/mm3 (4.6-6.20); Red Cell Distribution Width 11.8 % (11.5-14.5)
[2020-01-02 07:01] LABS: Alanine Aminotransferase 58 U/L (4-50); Albumin Level 3.4 g/dL (3.5-5.1); Alkaline Phosphatase 72 U/L (38-126); Anion Gap 6 mmol/L (8-16); Aspartate Amino Transferase 37 U/L (17-59); Bilirubin,Total 0.6 mg/dL (0.2-1.3); Blood Urea Nitrogen 15 mg/dL (9-20); Calcium 8.6 mg/dL (8.4-10.2); Carbon Dioxide 29 mmol/L (22-30); Chloride 99 mmol/L (98-107); Estimated CRCL calculation 128 ml/min; Estimated Glomerular Filt Rate > 60; Glucose 258 mg/dL (75-110); Potassium 4.2 mmol/L (3.4-5.0); Sodium 134 mmol/L (137-145)
[2020-01-02] MEDS: ALBUTEROL SULFATE (*SP) AEROSOL 1 PUFF 2 PUFF INHALATION ×4 (08:06→22:07)
[2020-01-02] MEDS: DEXAMETHASONE SOD PHOS INJ 4 MG/ML VIAL 6 MG IV PUSH (08:30)
[2020-01-02] MEDS: ESCITALOPRAM OXALATE 10 MG TABLET PO (08:30)
[2020-01-02] MEDS: ENOXAPARIN 40 MG/0.4 ML SYRINGE SUB-Q (08:30)
[2020-01-02] MEDS: INSULIN ASPART (*BKC) 100 UNITS/ML SUB-Q ×3 (08:31→17:12)
[2020-01-02] MEDS: ACETAMINOPHEN 325 MG TABLET 650 MG PO (08:42)
[2020-01-02 12:27] LABS: Glucose Point of Care 275 (65-105)
[2020-01-02 12:32] LABS: Glucose Point of Care 218 (65-105)
--- NOTE | 2020-01-02 14:02 | PM.IMPN ---
Progress Note: A&P Assessment and Plan (1) Pneumonia due to 2019 novel coronavirus: Code(s): U07.1 - COVID-19; J12.89 - Other viral pneumonia Status: Acute Assessment and Plan: Tested COVID positive on 12/26. CT scan shows commonly reported imaging features of COVID-19 pneumonia. No PE seen. Doppler LE negative of DVT. Patient hypoxic but stable on 4L O2 NC. Remdesivir Day 3. Dexamethasone Day 3. Continue Albuteral. Wean O2 as tolerated. (2) Acute respiratory failure due to COVID-19: Code(s): U07.1 - COVID-19; J96.00 - Acute respiratory failure, unspecified whether with hypoxia or hypercapnia Status: Acute Assessment and Plan: Patient stable on 4L O2 nasal cannula. He is still symptomatic with walking to the BR. Wean o2 as toelrated. (3) Diabetes mellitus: Code(s): E11.9 - Type 2 diabetes mellitus without complications Status: Chronic Assessment and Plan: A1c 6.0. Glucose reviewed on 01/01 Glucose elevated in the 200-300 range. Monitor closely with AccuCheks covering with sliding scale. Hypoglycemia protocol available as needed. Continue diabetic diet. Advance Lantus at night. (4) Hyperlipidemia: Code(s): E78.5 - Hyperlipidemia, unspecified Status: Chronic Assessment and Plan: LFTs mildly elevated at times. Will continue to hold his lovastatin. (5) Depression with anxiety: Code(s): F41.8 - Other specified anxiety disorders Status: Chronic Assessment and Plan: Mood stable. Continue with Lexapro. (6) Renal mass: Code(s): N28.89 - Other specified disorders of kidney and ureter Status: Acute Assessment and Plan: CT abd/pelvis on 12/26 showed 1.4 cm mass on left kidney; possible hemorrhagic cyst. Will need MRI of abdomen to further evaluate. Will hold MRI for now given his COVID diagnosis and since this wont interfere in current clinical course. (7) DVT prophylaxis: Code(s): Z29.9 - Encounter for prophylactic measures, unspecified Status: Acute Assessment and Plan: Lovenox Subjective Date/time seen: 01/02/20 14:02 Interval history: Date of service 01/02/2020 39y male with history of DM, HLD, and depression/anxiety here for COVID pneumonia and subsequent acute respiratory failure with hypoxia. Assuming care. Chart reviewed. Patient feels well. Some minimal shortness of breath arrest. Shortness of breath more evident with ambulating to the bathroom. Denies any chest pain or abdominal pain. Cough is minimal at this time. Eating well. He is concerned about his glucose being elevated. Exam Narrative: Exam Narrative: AF 98.1 98/67 69 20 95% 4L Gen - NARD sitting up in chair Chest - bibasilar inspiratory crackles, nml RR CV - RRR S1/S2; Tele showing no significant dysrhythmias Abd - Soft, NT/ND, Positive BS Ext - No pedal edema Psych - Nml mood and affect Skin - Warm and dry Objective Data Vital Signs Vital Signs: Vital Signs - 24 hr 01/01/20 16:00 01/01/20 20:00 01/01/20 20:48 Temperature 97.0 F L 98.5 F Pulse Rate 69 70 74 Respiratory Rate 20 22 H 18 Blood Pressure 112/67 106/66 Pulse Oximetry 96 95 95 01/02/20 00:00 01/02/20 04:00 01/02/20 08:00 Temperature 98.3 F 98.4 F 97.2 F L Pulse Rate 61 57 L 56 L Respiratory Rate 20 20 20 Blood Pressure 109/71 123/76 113/72 Pulse Oximetry 95 91 92 01/02/20 08:05 01/02/20 12:00 Temperature 98.1 F Pulse Rate 69 Respiratory Rate 20 Blood Pressure 98/67 L Pulse Oximetry 93 95 Intake/Output Intake/Output: Intake & Output 12/30/19 12/31/19 01/01/20 01/02/20 23:59 23:59 23:59 23:59 Intake Total 1770 860 Output Total 300 Balance 1470 860 Me
[2020-01-02 16:57] LABS: Glucose Point of Care 324 (65-105)
[2020-01-02] MEDS: INSULIN GLARGINE (*BKC) 100 UNITS/ML 18 UNITS SUB-Q (22:43)
[2020-01-02] MEDS: REMDESIVIR 100 MG/NS 250 ML 100 MG/250 ML BAG 250 MG IVPB (22:45)
[2020-01-02 23:00] LABS: Glucose Point of Care 269 (65-105)
[2020-01-03] VITALS (9 sets, daily range): BP systolic 98–123; BP diastolic 62–82; PULSE 54–85; RESP 16–20; TEMP 36.5–36.6; O2SAT 92–96
[2020-01-03 06:28] LABS: Basophils Percent Auto 0.3 % (0.2-1.2); Eosinophils Percent Auto 0.1 % (0-4.4); Hematocrit 40.9 % (42.0-52.0); Hemoglobin 14.5 g/dL (14.0-18.0); Immature Granulocyte Absolute 0.16 K/mm3 (0.00-0.031); Lymphocytes Absolute Auto 1.12 K/mm3 (0.9-3.2); Lymphocytes Percent Auto 14.3 % (18.3-44.2); Mean Corpuscular HGB Conc 35.5 g/dl (32-36); Mean Corpuscular Hemoglobin 30.5 pg (26-34); Mean Corpuscular Volume 85.9 fl (80-100); Mean Platelet Volume 9.4 fl (7.4-10.4); Monocytes Absolute Auto 0.4 K/mm3 (0.1-0.6); Monocytes Percent Auto 5.4 % (2.6-8.5); Neutrophils Absolute Auto 6.1 K/mm3 (1.3-6.7); Neutrophils Percent Auto 77.9 % (45.5-73.1); Platelet Count Result 335 k/mm3 (150-375); Red Blood Count 4.76 M/mm3 (4.6-6.20); Red Cell Distribution Width 11.8 % (11.5-14.5); White Blood Count 7.8 K/mm3 (4.5-10.0)
[2020-01-03 06:32] LABS: Alanine Aminotransferase 91 U/L (4-50); Albumin Level 3.8 g/dL (3.5-5.1); Alkaline Phosphatase 71 U/L (38-126); Anion Gap 10 mmol/L (8-16); Aspartate Amino Transferase 40 U/L (17-59); Bilirubin,Total 0.6 mg/dL (0.2-1.3); Blood Urea Nitrogen 14 mg/dL (9-20); Calcium 8.9 mg/dL (8.4-10.2); Carbon Dioxide 28 mmol/L (22-30); Chloride 97 mmol/L (98-107); Estimated CRCL calculation 110 ml/min; Estimated Glomerular Filt Rate > 60; Glucose 221 mg/dL (75-110); Magnesium 1.9 mg/dL (1.6-2.3); Potassium 4.1 mmol/L (3.4-5.0); Sodium 135 mmol/L (137-145)
[2020-01-03] MEDS: ALBUTEROL SULFATE (*SP) AEROSOL 1 PUFF 2 PUFF INHALATION ×4 (07:58→20:26)
[2020-01-03 09:03] LABS: Glucose Point of Care 169 (65-105)
[2020-01-03] MEDS: DEXAMETHASONE SOD PHOS INJ 4 MG/ML VIAL 6 MG IV PUSH (10:36)
[2020-01-03] MEDS: guaiFENesin/DEXTROMETHORPHAN 10 ML UDC PO ×2 (10:36→21:25)
[2020-01-03] MEDS: ESCITALOPRAM OXALATE 10 MG TABLET PO (10:37)
[2020-01-03] MEDS: ENOXAPARIN 40 MG/0.4 ML SYRINGE SUB-Q (10:37)
--- NOTE | 2020-01-03 11:07 | PC.NURSE ---
Farhat used with this patient. CARLITOS was the genetic physician. Patient given chance to verbalize any questions.
[2020-01-03 12:57] LABS: Glucose Point of Care 349 (65-105)
[2020-01-03] MEDS: INSULIN ASPART (*BKC) 100 UNITS/ML SUB-Q ×2 (13:52→18:31)
--- NOTE | 2020-01-03 15:47 | PM.IMPN ---
Progress Note: A&P Assessment and Plan (1) Pneumonia due to 2019 novel coronavirus: Code(s): U07.1 - COVID-19; J12.89 - Other viral pneumonia Status: Acute Assessment and Plan: Tested COVID positive on 12/26. CT scan shows commonly reported imaging features of COVID-19 pneumonia. No PE seen. Doppler LE negative of DVT. Patient hypoxic but improving - down to 3L O2 NC. Remdesivir Day 4. Dexamethasone Day 4. Continue Albuterol. Wean O2 as tolerated. Home O2 evaluation in the morning. (2) Acute respiratory failure due to COVID-19: Code(s): U07.1 - COVID-19; J96.00 - Acute respiratory failure, unspecified whether with hypoxia or hypercapnia Status: Acute Assessment and Plan: Patient better at 3L O2 nasal cannula. He is still symptomatic with walking to the BR. Wean O as tolerated. (3) Diabetes mellitus: Code(s): E11.9 - Type 2 diabetes mellitus without complications Status: Chronic Assessment and Plan: A1c 6.0. Glucose reviewed on 01/02 Glucose better this morning but now 349 before lunch. Hyperglycemia due to steroid. Monitor closely with AccuCheks covering with sliding scale. Hypoglycemia protocol available as needed. Continue diabetic diet. Advance Lantus again. (4) Hyperlipidemia: Code(s): E78.5 - Hyperlipidemia, unspecified Status: Chronic Assessment and Plan: LFTs mildly elevated at times. probably related to COVID +/- Remdesivir. Will continue to hold his lovastatin. (5) Depression with anxiety: Code(s): F41.8 - Other specified anxiety disorders Status: Chronic Assessment and Plan: Mood stable. Continue with Lexapro. (6) Renal mass: Code(s): N28.89 - Other specified disorders of kidney and ureter Status: Acute Assessment and Plan: CT abd/pelvis on 12/26 showed 1.4 cm mass on left kidney; possible hemorrhagic cyst. Will need MRI of abdomen to further evaluate. Will hold MRI for now given his COVID diagnosis and since this won't change current clinical management. (7) DVT prophylaxis: Code(s): Z29.9 - Encounter for prophylactic measures, unspecified Status: Acute Assessment and Plan: Lovenox Subjective Date/time seen: 01/03/20 15:47 Interval history: Date of service 01/02 39y male with history of DM, HLD, and depression/anxiety here for COVID pneumonia and subsequent acute respiratory failure with hypoxia. Patient feels better. Still with nonproductive cough. No CP. Eating well. No diarrhea. Exam Narrative: Exam Narrative: AF 97.7 98/62 85 16 95% 3L Gen - NARD sitting up in chair Chest - few scattered rhonchi, cough with deep inhalation CV - RRR S1/S2 Abd - Soft, NT/ND, Positive BS Ext - No pedal edema Psych - Nml mood and affect Skin - Warm and dry Objective Data Vital Signs Vital Signs: Vital Signs - 24 hr 01/02/20 16:00 01/02/20 20:00 01/02/20 22:07 Temperature 97.4 F L Pulse Rate 53 L 56 L 75 Respiratory Rate 20 Blood Pressure 113/72 Pulse Oximetry 97 95 01/02/20 22:45 01/02/20 23:24 01/03/20 00:00 Temperature 98.2 F Pulse Rate 57 L 66 Respiratory Rate 16 Blood Pressure 120/75 Pulse Oximetry 98 98 01/03/20 04:00 01/03/20 07:58 01/03/20 08:00 Temperature 97.8 F 97.8 F Pulse Rate 54 L 78 Respiratory Rate 20 16 Blood Pressure 123/82 110/63 Pulse Oximetry 94 95 92 01/03/20 12:00 Temperature 97.7 F Pulse Rate 85 Respiratory Rate 16 Blood Pressure 98/62 L Pulse Oximetry 95 Intake/Output Intake/Output: Intake & Output 12/31/19 01/01/20 01/02/20 01/03/20 23:59 23:59 23:59 23:59 Intake Total 1770 2810 340 Output Total 300 Balance 1470 2810 340 M
[2020-01-03 18:28] LABS: Glucose Point of Care 307 (65-105)
[2020-01-03] MEDS: guaiFENesin 12 HR 600 MG TABCR PO (21:24)
[2020-01-03] MEDS: INSULIN GLARGINE (*BKC) 100 UNITS/ML 22 UNITS SUB-Q (21:24)
[2020-01-03] MEDS: REMDESIVIR 100 MG/NS 250 ML 100 MG/250 ML BAG 250 MG IVPB (21:32)
[2020-01-03 22:28] LABS: Glucose Point of Care 397 (65-105)
[2020-01-04] VITALS (8 sets, daily range): BP systolic 99–125; BP diastolic 62–79; PULSE 52–77; RESP 18–20; TEMP 36.6–36.9; O2SAT 91–97
[2020-01-04 03:47] LABS: Glucose Point of Care 268 (65-105)
[2020-01-04 06:21] LABS: Basophils Percent Auto 0.4 % (0.2-1.2); Eosinophils Percent Auto 0.3 % (0-4.4); Hematocrit 39.7 % (42.0-52.0); Hemoglobin 14.2 g/dL (14.0-18.0); Immature Granulocyte Absolute 0.35 K/mm3 (0.00-0.031); Immature Granulocyte Percent A 4.8 % (0-0.5); Lymphocytes Absolute Auto 1.41 K/mm3 (0.9-3.2); Lymphocytes Percent Auto 19.3 % (18.3-44.2); Mean Corpuscular HGB Conc 35.8 g/dl (32-36); Mean Corpuscular Hemoglobin 30.2 pg (26-34); Mean Corpuscular Volume 84.5 fl (80-100); Mean Platelet Volume 9.2 fl (7.4-10.4); Monocytes Absolute Auto 0.6 K/mm3 (0.1-0.6); Monocytes Percent Auto 8.4 % (2.6-8.5); Neutrophils Absolute Auto 4.9 K/mm3 (1.3-6.7); Neutrophils Percent Auto 66.8 % (45.5-73.1); Nucleated Red Blood Cells Perc 0.5 % (0.0-0.2); Platelet Count Result 364 k/mm3 (150-375); Red Cell Distribution Width 11.6 % (11.5-14.5); White Blood Count 7.3 K/mm3 (4.5-10.0)
[2020-01-04 06:31] LABS: Alanine Aminotransferase 77 U/L (4-50); Albumin Level 3.6 g/dL (3.5-5.1); Alkaline Phosphatase 71 U/L (38-126); Anion Gap 7 mmol/L (8-16); Aspartate Amino Transferase 29 U/L (17-59); Bilirubin,Total 0.5 mg/dL (0.2-1.3); Blood Urea Nitrogen 14 mg/dL (9-20); Calcium 8.8 mg/dL (8.4-10.2); Carbon Dioxide 30 mmol/L (22-30); Chloride 98 mmol/L (98-107); Estimated CRCL calculation 97 ml/min; Estimated Glomerular Filt Rate > 60; Glucose 208 mg/dL (75-110); Potassium 4.2 mmol/L (3.4-5.0); Sodium 135 mmol/L (137-145)
[2020-01-04] MEDS: ALBUTEROL SULFATE (*SP) AEROSOL 1 PUFF 2 PUFF INHALATION ×3 (08:35→15:40)
[2020-01-04] MEDS: INSULIN ASPART (*BKC) 100 UNITS/ML SUB-Q ×2 (08:49→11:22)
[2020-01-04] MEDS: ENOXAPARIN 40 MG/0.4 ML SYRINGE SUB-Q (08:52)
[2020-01-04] MEDS: DEXAMETHASONE SOD PHOS INJ 4 MG/ML VIAL 6 MG IV PUSH (08:52)
[2020-01-04] MEDS: ESCITALOPRAM OXALATE 10 MG TABLET PO (08:53)
[2020-01-04] MEDS: guaiFENesin 12 HR 600 MG TABCR PO (09:00)
[2020-01-04 09:35] LABS: Glucose Point of Care 152 (65-105)
--- NOTE | 2020-01-04 11:05 | PCRCNOTE ---
HOME O2 EVAL DONE, PT DOES NOT NEED O2. PT AWARE. PT IS REQUESTING NEBULIZER AND RESPIRATORY MEDS FOR DISCHARGE. WE HAVE DISCUSSED WITH NURSERYMAN ASSISTANT TO PURCHASE THE NEBULIZER MACHINE AT [facility] WHEN HE DISCHARGES, HE WILL NEED TO HAVE A SCRIPT WRITTEN FOR MEDS. RN IS AWARE OF THIS, WELL THE PT.
[2020-01-04 11:55] LABS: Glucose Point of Care 201 (65-105)
--- NOTE | 2020-01-04 14:06 | PM.DS ---
DS: Admitting Diagnosis Admitting Diagnosis Admitting Diagnosis: CORONAVIRUS PNEUMONIA,ACUE RESPIRATORY FAILURE WIT DS: Discharge Diagnosis Discharge Diagnosis (1) Pneumonia due to 2019 novel coronavirus: Code(s): U07.1 - COVID-19; J12.89 - Other viral pneumonia Status: Acute Assessment and Plan: Tested COVID positive on 12/26. CT scan shows commonly reported imaging features of COVID-19 pneumonia. No PE seen. Doppler LE negative of DVT. Patient hypoxic but stabilized on 4L O2 NC. Completed 4 days of Remdesivir and 5 days of Decadron. Able to wean off O2. Patient feels much better and is requesting discharge. (2) Acute respiratory failure due to COVID-19: Code(s): U07.1 - COVID-19; J96.00 - Acute respiratory failure, unspecified whether with hypoxia or hypercapnia Status: Acute Assessment and Plan: Patient required up to 4L NC but able to be weaned to room air. He is still symptomatic with walking to the BR but this is a lot better . (3) Diabetes mellitus: Code(s): E11.9 - Type 2 diabetes mellitus without complications Status: Chronic Assessment and Plan: A1c 6.0. Glucose monitored closely. Glucose elevated in the 200-300 range due to the steroids. We monitored glucose closely with AccuCheks covering with sliding scale. Hypoglycemia protocol available as needed. We continued diabetic diet. He was treated with Lantus to help control the glucose. (4) Hyperlipidemia: Code(s): E78.5 - Hyperlipidemia, unspecified Status: Chronic Assessment and Plan: LFTs mildly elevated at times. We held his lovastatin. AST mostly remained normal. ALT peaked at 91. Resume lovastatin in 1 week. (5) Depression with anxiety: Code(s): F41.8 - Other specified anxiety disorders Status: Chronic Assessment and Plan: Mood stable. We continued with Lexapro. (6) Renal mass: Code(s): N28.89 - Other specified disorders of kidney and ureter Status: Acute Assessment and Plan: CT abd/pelvis on 12/26 showed 1.4 cm mass on left kidney; possible hemorrhagic cyst. Will need MRI of abdomen to further evaluate. We held MRI for now given his COVID diagnosis and will plan to have this done as outpatient. DS: Summary Hospital Course Reason for hospitalization: 39yo male with DM here for SOB and found to have COVID. please see H&P for details Hospital Course: As above. Status at Discharge Cognitive/behavioral status at discharge: PATIENT IS STABLE AT DISCHARGE Time Spent with Patient Time attestation: Total time spent providing and/or coordinating discharge services: 35 minutes Time spent: Greater than 30 minutes Specific discharge activities: patient Education through candy cutter machine Exam Narrative: Exam Narrative: No shortness of breath at rest but still has dyspnea exertion. The dyspnea on exertion is a lot better . No chest pain. No diarrhea. Eating well. AF 97.8 99/62 77 20 93% ra Gen - NARD sitting up in chair Chest - distant but clear breath sounds. CV - RRR S1/S2 Abd - Soft, NT/ND, Positive BS Ext - No pedal edema Psych - Nml mood and affect Skin - Warm and dry DS: Data Data Completed and Pending Labs on day of discharge: Labs from last 24 hours 01/04/20 01/04/20 01/04/20 11:18 08:21 05:54 WBC RBC Hgb Hct MCV MCH MCHC RDW Plt Count MPV Immature Gran % (Auto) Neut % (Auto) Lymph % (Auto) Gordon % (Auto) Eos % (Auto) Baso % (Auto) Lymph # (Auto) Gordon # (Auto) Eos # (Auto) Baso # (Auto) Abs Immat Gran (auto) Absolute Neuts (auto) Absolute Nucleated RBC Nucleated RBC % Sodium 135 L Potass
--- NOTE | 2020-01-04 16:05 | PC.NURSE ---
8625 CALLED [facility]PER[facility] AND WENT THROUGH DISCHARGE INSTRUCTIONS, PT WAS ALSO TOLD OF THE 1.4 CYST ON THE LEFT KIDNEY AND THAT THIS COULD BE A HEMMORHAGIC CYST AND NEED FOR MRI. PT WILL CONTACT IS MEDICAL REGARDING THE CYST. HE WILL CALL TOMORROW.. GAVE MRI PHONE NO. TO PT. WE ALSO REVIEWED SCRIPTS TO BE TAKEN TO PHARMACY.
== END 2020-01-04 17:30 | disposition home or self-care (01) | DRG 137 ==
LOC: ANHED 16:37 → ANH3MEDSUR 22:22
PROVIDERS: Internal Medicine; Physician Assistant; Admitting Provider Internal Medicine; Emergency Provider Emergency Medicine; Visit Provider Nurse Practitioner
DX: U07.1 COVID-19 (principal); J96.01 Acute respiratory failure with hypoxia; J12.89 Other viral pneumonia; E11.9 Type 2 diabetes mellitus without complications; E78.5 Hyperlipidemia, unspecified; F41.8 Other specified anxiety disorders; N28.89 Other specified disorders of kidney and ureter; Z28.21 Immunization not carried out because of patient refusal; Z79.84 Long term (current) use of oral hypoglycemic drugs; Z79.899 Other long term (current) drug therapy; Z87.891 Personal history of nicotine dependence
CPT/HCPCS: 36415; 71045; 71275; 80053; 82728; 83036; 83605; 83615; 83735; 84443; 84484; 85025; 85380; 85610; 85730; 86140; 93005; 93970; 94618; 94640; 96374; 99285; A9270; J1100; J1650; J1815; Q9967

== ENCOUNTER 2021-02-23 02:32 | Emergency (ER) | payer MEDICAID, SELFPAY ==
[2021-02-23] VITALS (14 sets, daily range): BP systolic 130–149; BP diastolic 85–100; PULSE 62–91; RESP 13–20; TEMP 36.3–36.6; O2SAT 94–100
--- NOTE | 2021-02-23 04:07 | PC.NURSE ---
Patients bedside glucose is 477.
[2021-02-23] MEDS: SODIUM CHLORIDE 0.9% IV 1,000 ML 999 ML IV CONT (04:14)
[2021-02-23 04:16] LABS: Glucose Point of Care 477 mg/dl (65-105)
[2021-02-23 04:20] LABS: Basophils Percent Auto 0.3 % (0.2-1.2); Eosinophils Absolute Auto 0.1 K/mm3 (0-0.3); Eosinophils Percent Auto 1.8 % (0-4.4); Hematocrit 44.3 % (42.0-52.0); Hemoglobin 16.2 g/dL (14.0-18.0); Immature Granulocyte Absolute 0.02 K/mm3 (0.00-0.031); Immature Granulocyte Percent A 0.3 % (0-0.5); Lymphocytes Absolute Auto 2.13 K/mm3 (0.9-3.2); Lymphocytes Percent Auto 29.9 % (18.3-44.2); Mean Corpuscular HGB Conc 36.6 g/dl (32-36); Mean Corpuscular Hemoglobin 30.5 pg (26-34); Mean Corpuscular Volume 83.4 fl (80-100); Mean Platelet Volume 10.7 fl (7.4-10.4); Monocytes Absolute Auto 0.5 K/mm3 (0.1-0.6); Monocytes Percent Auto 7.4 % (2.6-8.5); Neutrophils Absolute Auto 4.3 K/mm3 (1.3-6.7); Neutrophils Percent Auto 60.3 % (45.5-73.1); Platelet Count Result 194 k/mm3 (150-375); Red Blood Count 5.31 M/mm3 (4.6-6.20); Red Cell Distribution Width 11.7 % (11.5-14.5); White Blood Count 7.1 K/mm3 (4.5-10.0)
[2021-02-23 04:23] LABS: Add Urine Microscopic? YES; Appearance Urine Clear (Clear); Bilirubin Urine Negative (Negative); Blood Urine 1+ (Negative); Color Urine Colorless (Yellow); Glucose Urine UA 3+ mg/dL (Negative); Ketones Urine Trace mg/dL (Negative); Leukocyte Esterase Ur Negative LEU/UL (Negative); Mucus Urine Rare /lpf; Nitrate Urine Negative (Negative); Protein Urine Negative (Negative); RBC Urine 0-2 /hpf (0-2); Specific Grav Ur 1.023 (1.001-1.035); Urobilinogen Urine Negative mg/dL (<2.0); WBC Urine 0-3 /hpf
[2021-02-23 04:45] LABS: Beta-Hydroxybutyrate/Acetoacetate 0.47 mmol/L (0.02-0.27)
--- NOTE | 2021-02-23 05:05 | ED.GENADULT ---
HPI - General Adult General Chief complaint: Recheck/Abnormal Lab/Rx Stated complaint: high bs Time Seen by Provider: 02/23/21 03:33 Source: patient, RN notes reviewed and folder tier Limitations: language barrier History of Present Illness HPI narrative: 40-year-old male presents emergency department for evaluation of hyperglycemia. Patient does take metformin for his diabetes. Patient is not currently on insulin. Patient states over the last few weeks of blood sugars have been running high in the 300-400 range. Patient states prior to arrival his blood sugars at home were running 600. On arrival to emergency room patient's blood sugar was 477 Patient also mentions that he has had some issues with a rash aroud his genitals. Patient denies discharge do does report redness and dry skin around his penis. Related Data Home Medications Medication Instructions Recorded Confirmed lovastatin 10 mg PO QPM 06/29/19 12/31/19 metformin 500 mg PO BID 06/29/19 12/31/19 Lexapro 10 mg PO DAILY 12/31/19 12/31/19 Allergies Allergy/AdvReac Type Severity Reaction Status Date / Time No Known Allergies Allergy Verified 02/26/21 07:55 Review of Systems Review of Systems: CONSTITUTIONAL: Denies fever, chills, or sweats. EYES: Denies visual changes, redness, or discharge. ENT: Denies rhinorrhea, congestion, sore throat, or otalgia. CARDIOVASCULAR: Denies chest pain, palpitations, or edema. RESPIRATORY: Denies cough or dyspnea. GASTROINTESTINAL: Denies abdominal pain, nausea, vomiting, or diarrhea. GENITOURINARY: Genital rash SKIN:genital rash MUSCULOSKELETAL: Denies back pain, joint pain, or myalgia. NEUROLOGIC: Denies headache, numbness, or weakness. PSYCHIATRIC: Denies anxiety or depression. [facility] Past Medical History Medical History (System 02/26/21 @ 07:55 by Anita Moore) Depression with anxiety Diabetes mellitus Hyperlipidemia Surgical History Surgical History (System 02/26/21 @ 07:55 by Anita Moore) No history of previous surgery Family History Family History (System 02/26/21 @ 07:55 by Anita Moore) Unknown Family history unknown Social History Social History (System 02/26/21 @ 07:55 by Anita Moore) Social History: the patient tells me that he is and lives with his . 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 His is a durable power health care attorney for healthcare. The patient has 3 children. He states he occasionally drinks but he no longer smokes cigarettes. He denies any marijuana. Patient is Argentine-speaking and speaks some Lebanese but very little. Smoking packs per day: 0 Smoking cigarettes per day: 0.0 Smoking status: Former smoker Alcohol intake: current Drinks per week: 1 Substance use: former Last use: 1 yr ago Gender identity (if verbalized by the patient): Male Spiritual care concerns: No Exam Narrative: APPEARANCE: Well appearing, no pain in distress, well-nourished. HEAD: normocephalic, atraumatic. EYES: PERRLA/EOMI, conjunctivae clear. NECK: Supple. No adenopathy, no masses. RESPIRATORY: Airway patent, respirations nonlabored. Clear to auscultation bilaterally, no rales, rhonchi, wheezing. CARDIOVASCULAR: Regular rate and rhythm without murmurs rubs or gallops. ABDOMINAL: Soft, nontender, nondistended, normal bowel sounds MUSCULOSKELETAL: Moves all extremities. Strength/ROM intact, No edema, No calf tenderness. NEURO: Alert. Cranial nerves II through XII intact. Good gait. Good coordination SKIN: Candidiasis infection on genitals PSYCHIATRIC: Normal affect/mood. Course Course Emergency Course: patient reports his blood sugars run in the 250 range normally. patient has follow up scheduled with his pcp to discuss better blood sugar control. patient's labs were reviewed. patient is not in DKA. hyperglycemia resolved with rehydration. translation device was used and helped to provide a good interaction with
[2021-02-23 05:25] LABS: Alanine Aminotransferase 28 U/L (4-50); Albumin Level 4.8 g/dL (3.5-5.1); Alkaline Phosphatase 352 U/L (38-126); Anion Gap 16 mmol/L (8-16); Aspartate Amino Transferase 26 U/L (17-59); Bilirubin,Total 0.7 mg/dL (0.2-1.3); Blood Urea Nitrogen 21 mg/dL (9-20); Calcium 10.2 mg/dL (8.4-10.2); Carbon Dioxide 21 mmol/L (22-30); Chloride 97 mmol/L (98-107); Estimated CRCL calculation 98 ml/min; Estimated Glomerular Filt Rate > 60; Glucose 515 mg/dL (65-110); Magnesium 1.8 mg/dL (1.6-2.3); Phosphorus 5.4 mg/dL (2.5-4.5); Potassium 4.3 mmol/L (3.4-5.0); Sodium 134 mmol/L (137-145)
[2021-02-23] MEDS: INSULIN HUMAN REGULAR (*BKC) 100 UNITS/ML 7 UNITS IV PUSH (05:48)
--- NOTE | 2021-02-23 06:43 | PC.NURSE ---
Bedside glucose is 300.
[2021-02-23 06:44] LABS: Glucose Point of Care 300 mg/dl (65-105)
== END 2021-02-23 07:10 | disposition home or self-care (01) ==
PROVIDERS: Emergency Provider Emergency Medicine
DX: E11.65 Type 2 diabetes mellitus with hyperglycemia (principal); B37.49 Other urogenital candidiasis; F41.8 Other specified anxiety disorders; Z87.891 Personal history of nicotine dependence; Z79.84 Long term (current) use of oral hypoglycemic drugs
CPT/HCPCS: 36415; 80053; 81001; 82010; 82948; 83735; 84100; 85025; 96361; 96374; 99284; J1815; J7030

== ENCOUNTER 2021-08-20 17:20 | Emergency (ER) | payer SELFPAY ==
[2021-08-20 17:24] VITALS: BP 121/87; PULSE 75; RESP 20; TEMP 35.8; O2SAT 100
[2021-08-20 17:40] LABS: Glucose Point of Care 409 mg/dl (65-105)
[2021-08-20 17:43] LABS: Basophils Percent Auto 0.3 % (0.2-1.2); Eosinophils Absolute Auto 0.1 K/mm3 (0-0.3); Eosinophils Percent Auto 1.2 % (0-4.4); Hemoglobin 14.5 g/dL (14.0-18.0); Immature Granulocyte Absolute 0.02 K/mm3 (0.00-0.031); Immature Granulocyte Percent A 0.3 % (0-0.5); Lymphocytes Absolute Auto 2.04 K/mm3 (0.9-3.2); Lymphocytes Percent Auto 35.3 % (18.3-44.2); Mean Corpuscular HGB Conc 35.4 g/dl (32-36); Mean Corpuscular Hemoglobin 30.7 pg (26-34); Mean Corpuscular Volume 86.7 fl (80-100); Mean Platelet Volume 10.8 fl (7.4-10.4); Monocytes Absolute Auto 0.4 K/mm3 (0.1-0.6); Monocytes Percent Auto 6.9 % (2.6-8.5); Neutrophils Absolute Auto 3.2 K/mm3 (1.3-6.7); Platelet Count Result 183 k/mm3 (150-375); Red Blood Count 4.73 M/mm3 (4.6-6.20); Red Cell Distribution Width 12.2 % (11.5-14.5); White Blood Count 5.8 K/mm3 (4.5-10.0)
[2021-08-20 17:56] LABS: Alanine Aminotransferase 22 U/L (6-50); Albumin Level 4.1 g/dL (3.5-5.1); Alkaline Phosphatase 162 U/L (38-126); Anion Gap 7 mmol/L (8-16); Aspartate Amino Transferase 25 U/L (17-59); Bilirubin,Total 0.6 mg/dL (0.2-1.3); Blood Urea Nitrogen 16 mg/dL (9-20); Calcium 8.4 mg/dL (8.4-10.2); Carbon Dioxide 24 mmol/L (22-30); Chloride 97 mmol/L (98-107); Estimated CRCL calculation 104 ml/min; Estimated Glomerular Filt Rate > 60; Glucose 401 mg/dL (65-110); Magnesium 1.7 mg/dL (1.6-2.3); Phosphorus 3.2 mg/dL (2.5-4.5); Potassium 4.3 mmol/L (3.4-5.0); Sodium 128 mmol/L (137-145)
[2021-08-20 17:59] LABS: Beta-Hydroxybutyrate/Acetoacetate 1.23 mmol/L (0.02-0.27)
[2021-08-20 23:19] LABS: Glucose Point of Care 334 mg/dl (65-105)
[2021-08-20 23:24] VITALS: BP 116/83; PULSE 62; RESP 18; TEMP 36.8; O2SAT 96
[2021-08-20] MEDS: SODIUM CHLORIDE 0.9% IV 1,000 ML 999 ML IV CONT (23:27)
[2021-08-20 23:28] LABS: Appearance Urine Clear (Clear); Bilirubin Urine Negative (Negative); Color Urine Yellow (Yellow); Glucose Urine UA 2+ mg/dL (Negative); Ketones Urine 4+ mg/dL (Negative); Leukocyte Esterase Ur Negative LEU/UL (Negative); Nitrate Urine Negative (Negative); Protein Urine Negative (Negative); Urobilinogen Urine 0.2 mg/dL (<2.0); pH Urine 5.5 (5.0-9.0)
[2021-08-20 23:35] LABS: RBC Urine 0-2 /hpf (0-2); Squamous Epithelial Cell Urine Rare /hpf (Few); WBC Urine 0-3 /hpf
[2021-08-20 23:41] LABS: Add Urine Microscopic? YES; Blood Urine Trace (Negative)
[2021-08-21] MEDS: SODIUM CHLORIDE 0.9% IV 1,000 ML 999 ML IV CONT (00:17)
--- NOTE | 2021-08-21 00:35 | ED.RECABL ---
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 Worsening over the last month. Reports he takes metformin and Jardiance for his diabetes. He has been taking his medications as prescribed. His blood sugars have been elevated anywhere from in the 200s to 400s. He has had worsening thirst recently. He also reports a red, itchy rash on his genitals. Denies fever, abdominal pain, or vomiting. <JORGE Del Rosario Last Filed: 08/21/21 01:16> Related Data Home Medications: Home Medications Medication Instructions Recorded Confirmed lovastatin 10 mg tablet 10 mg PO QPM 06/29/19 12/31/19 metformin 500 mg tablet 500 mg PO BID 06/29/19 12/31/19 Lexapro 10 mg PO DAILY 12/31/19 12/31/19 <JORGE Del Rosario Last Filed: 08/21/21 01:16> Allergies/Adverse Reactions: Allergies Allergy/AdvReac Type Severity Reaction Status Date / Time No Known Allergies Allergy Verified 02/26/21 07:55 <JORGE Del Rosario Last Filed: 08/21/21 01:16> Review of Systems Review of Systems: CONSTITUTIONAL: Denies fever GASTROINTESTINAL: Denies abdominal pain, nausea, vomiting GENITOURINARY: Denies dysuria SKIN: Reports rash and itching. <Cristy Mckeon PA-C - Last Filed: 08/21/21 01:16> All systems reviewed & are unremarkable except as noted in HPI and below <Cristy Mckeon PA-C - Last Filed: 08/21/21 01:16> [facility] Past Medical History Medical History: Medical History (Updated 08/21/21 @ 01:12 by Cristy Mckeon PA-C) Depression with anxiety Diabetes mellitus Hyperlipidemia <Cristy Mckeon PA-C - Last Filed: 08/21/21 01:16> Surgical History Surgical History: Surgical History (System 02/26/21 @ 07:55 by Anita Moore) No history of previous surgery <Cristy Mckeon PA-C - Last Filed: 08/21/21 01:16> Family History Family History: Family History (System 02/26/21 @ 07:55 by Anita Moore) Unknown Family history unknown <Cristy Mckeon PA-C - Last Filed: 08/21/21 01:16> Social History Social History: Social History (System 02/26/21 @ 07:55 by Anita Moore) Social History: the patient tells me that he is and lives with his . 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 His is a durable power deputy attorney general for healthcare. The patient has 3 children. He states he occasionally drinks but he no longer smokes cigarettes. He denies any marijuana. Patient is [place]-speaking and speaks some Greek but very little. Smoking packs per day: 0 Smoking cigarettes per day: 0.0 Smoking status: Former smoker Alcohol intake: current Drinks per week: 1 Substance use: former Last use: 1 yr ago Gender identity (if verbalized by the patient): Male Spiritual care concerns: No <Cristy Mckeon PA-C - Last Filed: 08/21/21 01:16> Exam Narrative: GENERAL: Well-appearing, well-nourished, and in no acute distress. HEAD: Normocephalic, atraumatic. EYES: EOMI. CHEST: No respiratory distress. HEART: Regular rate EXTREMITIES: Normal range of motion. No edema. SKIN: Warm, dry, no rash. NEURO: No focal deficits. Alert and oriented x3. PSYCH: Normal mood and affect MALE GENITAL: Mild erythema with mild white discharge noted
[2021-08-21 01:41] VITALS: BP 120/65; PULSE 75; RESP 18; O2SAT 100
[2021-08-21 01:41] LABS: Hemoglobin A1C 11.3 % (<5.7)
== END 2021-08-21 01:41 | disposition home or self-care (01) ==
PROVIDERS: Emergency Medicine; Physician Assistant; Emergency Provider Emergency Medicine
DX: E11.65 Type 2 diabetes mellitus with hyperglycemia (principal); N48.1 Balanitis; F41.8 Other specified anxiety disorders; E78.5 Hyperlipidemia, unspecified; Z79.84 Long term (current) use of oral hypoglycemic drugs; Z87.891 Personal history of nicotine dependence
CPT/HCPCS: 36415; 80053; 81001; 82010; 82948; 83036; 83735; 84100; 85025; 96360; 96361; 99283; J7030

== ENCOUNTER 2022-11-24 04:03 | Emergency (ER) | payer MEDICAID, SELFPAY ==
[2022-11-24] VITALS (24 sets, daily range): BP systolic 113–142; BP diastolic 81–100; PULSE 57–75; RESP 13–24; TEMP 35.8; O2SAT 87–100
[2022-11-24 04:27] LABS: Basophils Percent Auto 0.3 % (0.2-1.2); Eosinophils Absolute Auto 0.1 K/mm3 (0-0.3); Eosinophils Percent Auto 0.9 % (0-4.4); Hematocrit 46.2 % (42.0-52.0); Hemoglobin 16.7 g/dL (14.0-18.0); Immature Granulocyte Absolute 0.01 K/mm3 (0.00-0.031); Immature Granulocyte Percent A 0.1 % (0-0.5); Lymphocytes Absolute Auto 2.08 K/mm3 (0.9-3.2); Lymphocytes Percent Auto 28.1 % (18.3-44.2); Mean Corpuscular HGB Conc 36.1 g/dl (32-36); Mean Corpuscular Volume 85.9 fl (80-100); Mean Platelet Volume 11.2 fl (7.4-10.4); Monocytes Absolute Auto 0.4 K/mm3 (0.1-0.6); Neutrophils Absolute Auto 4.8 K/mm3 (1.3-6.7); Neutrophils Percent Auto 64.6 % (45.5-73.1); Platelet Count Result 164 k/mm3 (150-375); Red Blood Count 5.38 M/mm3 (4.6-6.20); Red Cell Distribution Width 11.5 % (11.5-14.5); White Blood Count 7.4 K/mm3 (4.5-10.0)
[2022-11-24 04:41] LABS: Alanine Aminotransferase 26 U/L (6-50); Albumin Level 4.9 g/dL (3.5-5.1); Alkaline Phosphatase 190 U/L (38-126); Anion Gap 12 mmol/L (8-16); Aspartate Amino Transferase 26 U/L (17-59); Bilirubin,Total 0.7 mg/dL (0.2-1.3); Blood Urea Nitrogen 19 mg/dL (9-20); Calcium 9.6 mg/dL (8.4-10.2); Carbon Dioxide 22 mmol/L (22-30); Chloride 99 mmol/L (98-107); Estimated Glomerular Filt Rate > 60; Glucose 492 mg/dL (65-110); Potassium 4.1 mmol/L (3.4-5.0); Sodium 133 mmol/L (137-145)
[2022-11-24 05:28] LABS: Glucose Point of Care 424 mg/dl (65-105)
[2022-11-24 05:28] LABS: Glucose Point of Care 443 mg/dl (65-105)
[2022-11-24 07:28] LABS: Glucose Point of Care 442 mg/dl (65-105)
--- NOTE | 2022-11-24 07:47 | ED.RECABL ---
HPI - Recheck/Abnormal Lab/Rx General Chief Complaint: Recheck/Abnormal Lab/Rx Stated Complaint: high blood sugar, thraot pain Time Seen by Provider: 11/24/22 06:57 History of Present Illness HPI narrative: Patient presents because last few days he has noticed his blood sugar has been high, and he is feeling thirsty. Related Data Home Medications Medication Instructions Recorded Confirmed lovastatin 10 mg tablet 10 mg PO QPM 06/29/19 12/31/19 metformin 500 mg tablet 500 mg PO BID 06/29/19 12/31/19 Lexapro 10 mg PO DAILY 12/31/19 12/31/19 Allergies Allergy/AdvReac Type Severity Reaction Status Date / Time No Known Allergies Allergy Verified 02/26/21 07:55 Review of Systems Review of Systems: CONST: No fever. HEENT: Dry throat C/V: No chest pain RESP: No cough GI: No abdominal pain : Frequent urination. M/S: No joint pain. SKIN: No rash. NEURO: [No headache or focal numbness or weakness] PSYCH: [No depression] [facility] Past Medical History Medical History (Updated 11/24/22 @ 09:08 by Lori Gonzalez MD) Depression with anxiety Diabetes mellitus Hyperlipidemia Surgical History Surgical History (System 02/26/21 @ 07:55 by Anita Moore) No history of previous surgery Family History Family History (System 02/26/21 @ 07:55 by Anita Moore) Unknown Family history unknown Social History Social History (System 02/26/21 @ 07:55 by Anita Moore) Social History: the patient tells me that he is and lives with his . 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 His is a durable power finance attorney for healthcare. The patient has 3 children. He states he occasionally drinks but he no longer smokes cigarettes. He denies any marijuana. Patient is Estonian-speaking and speaks some Amharic but very little. Smoking packs per day: 0 Smoking cigarettes per day: 0.0 Smoking status: Former smoker Alcohol intake: current Drinks per week: 1 Substance use: former Last use: 1 yr ago Gender identity (if verbalized by the patient): Male Spiritual care concerns: No Exam Narrative: EXAMINATION OF ORGAN SYSTEMS/BODY AREAS: Constitutional: Vital signs per nursing GENERAL:[No acute distress, non-toxic appearing.] HEAD: Normal with no signs of head trauma. EYES: EOMI, conjunctiva normal ENT: Hearing grossly intact LUNGS: Nonlabored breathing. HEART: [Regular rate and rhythm] ABD: [Soft], [nontender to palpation] EXT: Normal range of motion SKIN: [No rashes or lesions.] NEURO: [Alert and oriented x 3. No gross focal sensory or strength deficits.] PSYCH: Normal affect Course Vital Signs Vital signs: Vital Signs Temperature 96.5 F L 11/24/22 04:04 Pulse Rate 66 11/24/22 04:04 Respiratory Rate 16 11/24/22 04:04 Blood Pressure 142/100 H 11/24/22 04:04 Pulse Oximetry 98 11/24/22 04:04 Oxygen Delivery Room Air 11/24/22 04:04 Temperature 96.5 F L 11/24/22 04:04 Pulse Rate 58 L 11/24/22 09:38 Respiratory Rate 20 11/24/22 09:38 Blood Pressure 113/81 11/24/22 09:38 Pulse Oximetry 99 11/24/22 09:08 Oxygen Delivery Room Air 11/24/22 04:04 MDM - Recheck/Abnormal Lab/Rx MDM Narrative Medical decision making narrative: 42-year-old male presenting with high blood sugar, on exam he is well-appearing, no distress, labs are significant for hyperglycemia, without anion gap. IV fluids are given and small dose of insulin, and on reevaluation he is feeling better, blood sugar has also improved. Infectious work-up without any abnormality. I have let him know to follow-up with his PCP in next few days for medication followup and come back immediately if he feels worse. Patient agreeable with this plan. Lab Data 11/24/22 04:19 11/24/22 04:19 Labs: Lab Results 11/24/22 11/24/22 11/24/22 Range/Units 04:10 04:19 05:25 WBC 7.4 (4.5-10.0) K/mm3 RBC 5.38 (
[2022-11-24] MEDS: LACTATED RINGERS 1,000 ML 999 ML IV CONT ×2 (07:51→09:07)
[2022-11-24] MEDS: INSULIN HUMAN REGULAR (*BKC) 100 UNITS/ML 8 UNITS IV PUSH (07:52)
[2022-11-24 08:16] LABS: Appearance Urine Clear (Clear); Bilirubin Urine Negative (Negative); Blood Urine Negative (Negative); Color Urine Yellow (Yellow); Glucose Urine UA 3+ mg/dL (Negative); Ketones Urine 3+ mg/dL (Negative); Leukocyte Esterase Ur Negative LEU/UL (Negative); Nitrate Urine Negative (Negative); Protein Urine Negative (Negative); Urobilinogen Urine 0.2 mg/dL (<2.0); pH Urine 5.5 (5.0-9.0)
[2022-11-24 08:21] LABS: Specific Grav Ur 1.046 (1.001-1.035)
[2022-11-24 08:26] LABS: Add Urine Microscopic? NO
[2022-11-24 08:29] LABS: Strep Group A RT-PCR NOT DETECTED (Negative)
[2022-11-24 08:40] LABS: Influenza A QL RT-PCR Negative (Negative); Influenza B QL RT-PCR Negative (Negative); RSV RNA, RT-PCR Negative (Negative); SARS-CoV-2 RNA PCR Negative (Negative)
[2022-11-24 09:07] LABS: Glucose Point of Care 270 mg/dl (65-105)
== END 2022-11-24 09:35 | disposition home or self-care (01) ==
PROVIDERS: Emergency Medicine; Emergency Provider Emergency Medicine
DX: E11.65 Type 2 diabetes mellitus with hyperglycemia (principal); Z11.52 Encounter for screening for COVID-19; E78.5 Hyperlipidemia, unspecified; F41.8 Other specified anxiety disorders; Z87.891 Personal history of nicotine dependence; Z79.84 Long term (current) use of oral hypoglycemic drugs
CPT/HCPCS: 36415; 80053; 81003; 82948; 85025; 87637; 87651; 96361; 96374; 99284; J1815; J7120

== ENCOUNTER 2022-12-28 11:33 | Inpatient (IN) | payer MEDICAID, SELFPAY ==
[2022-12-28 11:49] VITALS: BP 126/82; PULSE 87; RESP 15; TEMP 36.5; O2SAT 98
[2022-12-28 11:59] LABS: Glucose Point of Care > 500 mg/dl (65-105)
--- NOTE | 2022-12-28 12:01 | ED.GENADULT ---
HPI - General Adult General Chief complaint: Recheck/Abnormal Lab/Rx <Brinda Gong APRN - Last Filed: 12/28/22 18:12> Stated complaint: blood sugar is too high <Brinda Gong APRN - Last Filed: 12/28/22 18:12> Time Seen by Provider: 12/28/22 12:37 <Brinda Gong MASTER ESTHETICIAN - Last Filed: 12/28/22 18:12> Source: patient <Celi Alex MD - Last Filed: 12/28/22 19:17> Limitations: language barrier (Mosotho as second language though speaks Mosotho at novice level, understandable in general) <Celi Alex MD - Last Filed: 12/28/22 19:17> History of Present Illness HPI narrative: Joseph Calvillo is a 42 y/o Peruvian speaking male who presents with reports of being out of his Metformin for about 1 week and he cannot get into his PCP for another week. <Brinda Gong APRN - Last Filed: 12/28/22 18:12> Joseph Calvillo is a 42 y/o Peruvian speaking male who presents with reports of being out of his Metformin and Invokana/canagliflozin and simvastatin for about 1 week and he cannot get into his PCP for another week, next appointment scheduled for 01/05/2023. Patient does not regularly check his blood glucose. Patient denies any diarrhea or cough. He initially denies abdominal pain but then states he does intermitently get some, not currently. His only complaint is that he is having some pain along the lateral aspect of his left leg but he denies any falls or trauma. He does not know if he has ever been in DKA before. <Celi Alex MD - Last Filed: 12/28/22 19:17> Related Data Home medications: Home Medications Medication Instructions Recorded Confirmed lovastatin 10 mg tablet 10 mg PO QPM 06/29/19 12/31/19 metformin 500 mg tablet 500 mg PO BID 06/29/19 12/28/22 Lexapro 20 mg PO DAILY 12/31/19 12/28/22 <Brinda Gong APRN - Last Filed: 12/28/22 18:12> Allergies/adverse reactions: Allergies Allergy/AdvReac Type Severity Reaction Status Date / Time No Known Allergies Allergy Verified 12/28/22 11:33 <Brinda Beauchamp June, Last Filed: 12/28/22 18:12> [facility] Past Medical History Medical History: Medical History Depression with anxiety Diabetes mellitus Hyperlipidemia <Brinda Beauchamp June, - Last Filed: 12/28/22 18:12> Surgical History Surgical History: Surgical History (System 02/26/21 @ 07:55 by Anita Moore) No history of previous surgery <Brinda Beauchamp June, - Last Filed: 12/28/22 18:12> Family History Family History: Family History Unknown Family history unknown <Brinda Beauchamp June,N - Last Filed: 12/28/22 18:12> Social History Social History: Social History (System 02/26/21 @ 07:55 by Anita Moore) Social History: the patient tells me that he is and lives with his . 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 The patient has 3 children. He states he occasionally drinks but he no longer smokes cigarettes. He denies any marijuana. Patient is Peruvian-speaking and speaks some Mosotho but very little. Smoking packs per day: 0 Smoking cigarettes per day: 0.0 Smoking status: Never smoker Alcohol intake: current Drinks per week: 1 Substance use: never Last use: 1 yr ago Lack of Transportation: No Lack of Food: Never True Current Housing: I Have Housing Concerned About Future Housing: No Difficulty Paying Gas/Electric Bills: No Difficulty Paying for Meds: YES Currently Unemployed: YES Education: High School Diploma/GED Difficulty w/ Childcare or Family Care: No Gender identity (if verbalized by the patient): Male Spiritual care concerns: No <Brinda Beauchamp June, Last Filed: 12/28/22 18:12> Exam Const: General: healthy appearing, no acute distress and aler
[2022-12-28 12:05] LABS: Basophils Percent Auto 0.2 % (0.2-1.2); Eosinophils Percent Auto 0.6 % (0-4.4); Hematocrit 45.6 % (42.0-52.0); Hemoglobin 15.8 g/dL (14.0-18.0); Immature Granulocyte Absolute 0.02 K/mm3 (0.00-0.031); Immature Granulocyte Percent A 0.4 % (0-0.5); Lymphocytes Absolute Auto 1.31 K/mm3 (0.9-3.2); Lymphocytes Percent Auto 27.7 % (18.3-44.2); Mean Corpuscular HGB Conc 34.6 g/dl (32-36); Mean Corpuscular Hemoglobin 30.1 pg (26-34); Mean Corpuscular Volume 86.9 fl (80-100); Mean Platelet Volume 10.9 fl (7.4-10.4); Monocytes Absolute Auto 0.3 K/mm3 (0.1-0.6); Monocytes Percent Auto 5.5 % (2.6-8.5); Neutrophils Absolute Auto 3.1 K/mm3 (1.3-6.7); Neutrophils Percent Auto 65.6 % (45.5-73.1); Platelet Count Result 182 k/mm3 (150-375); Red Blood Count 5.25 M/mm3 (4.6-6.20); Red Cell Distribution Width 12.4 % (11.5-14.5); White Blood Count 4.7 K/mm3 (4.5-10.0)
[2022-12-28 12:19] LABS: Alanine Aminotransferase 23 U/L (6-50); Albumin Level 4.6 g/dL (3.5-5.1); Alkaline Phosphatase 119 U/L (38-126); Anion Gap 19 mmol/L (8-16); Aspartate Amino Transferase 23 U/L (17-59); Bilirubin,Total 1.1 mg/dL (0.2-1.3); Blood Urea Nitrogen 13 mg/dL (9-20); Calcium 8.8 mg/dL (8.4-10.2); Carbon Dioxide 11 mmol/L (22-30); Chloride 95 mmol/L (98-107); Estimated Glomerular Filt Rate > 60; Glucose 619 mg/dL (65-110); Magnesium 1.7 mg/dL (1.6-2.3); Phosphorus 3.5 mg/dL (2.5-4.5); Potassium 4.4 mmol/L (3.4-5.0); Sodium 125 mmol/L (137-145)
[2022-12-28 13:06] LABS: Beta-Hydroxybutyrate/Acetoacetate 5.65 mmol/L (0.02-0.27)
[2022-12-28 14:02] LABS: Appearance Urine Clear (Clear); Bacteria Urine None Seen /hpf; Bilirubin Urine Negative (Negative); Color Urine Yellow (Yellow); Glucose Urine UA 3+ mg/dL (Negative); Ketones Urine 3+ mg/dL (Negative); Leukocyte Esterase Ur Negative LEU/UL (Negative); Nitrate Urine Negative (Negative); Non Pathogenic Casts 0-2; Protein Urine Negative (Negative); RBC Urine 0-2 /hpf (0-2); Specific Grav Ur 1.033 (1.001-1.035); Squamous Epithelial Cell Urine None seen /hpf (Few); Urobilinogen Urine 0.2 mg/dL (<2.0); WBC Urine 0-5 /hpf
[2022-12-28 14:12] LABS: Add Urine Microscopic? YES
[2022-12-28] MEDS: SODIUM CHLORIDE 0.9% IV 500 ML 999 ML IV CONT ×2 (14:17)
[2022-12-28] MEDS: SODIUM CHLORIDE 0.9% IV 1,000 ML 999 ML IV CONT (15:18)
[2022-12-28] MEDS: SODIUM CHLORIDE 0.9% IV 1,000 ML 150 ML IV CONT (15:19)
[2022-12-28] MEDS: INSULIN HUMAN REGULAR (*BKC) 100 UNITS in SODIUM CHLORIDE 0.9% IV 99 ML 7.5 UNITS IV CONT (15:19)
[2022-12-28 15:29] LABS: Glucose Point of Care 415 mg/dl (65-105)
[2022-12-28 16:34] LABS: Glucose Point of Care 279 mg/dl (65-105)
--- NOTE | 2022-12-28 16:50 | PM.IMHP ---
H&P: HPI History of Present Illness Date/Time: 12/28/22 17:30 Chief Complaint: High blood sugars. Narrative: This is a very pleasant Belarusian-speaking 42-year-old male with type 2 diabetes mellitus, hyperlipidemia, depression, and anxiety who presented to the emergency department via private vehicle for evaluation of high blood sugars. 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 He has been out of metformin for about 7 days and unfortunately he has not been able to have it refilled pending an upcoming appointment with his primary care provider until January 05. Over the last week his glucose has been creeping upwards, sometimes in the 400s to 500s. He is otherwise feeling well and he specifically denies recent cold and flu symptoms, blurry vision, polydipsia, polyuria, shortness of breath, nausea, vomiting, diarrhea, and dysuria. In the ED: Vital signs were stable on arrival. Pertinent labs include a sodium of 125, carbon dioxide 11, anion gap 19, glucose 619, beta hydroxybutyrate 5.65. UA was positive for 3+ glucose and 3+ ketones. He was started on insulin drip in the ED and he is being admitted to the ICU for treatment of diabetic ketoacidosis. Review of Systems Review of Systems: Twelve systems were reviewed and are negative except for as per HPI. [facility] Past Medical History Medical History (Updated 12/28/22 @ 23:44 by Dai Scott PA-C) Depression with anxiety Hyperlipidemia Type 2 diabetes mellitus Surgical History Surgical History No history of previous surgery Family History Family History Unknown Family history unknown Social History Social History (Updated 12/28/22 @ 23:45 by Dai Scott PA-C) Social History: Surrogate medical decision maker: Irene Cummings, spouse. Code status: Full code. Smoking packs per day: 0 Smoking cigarettes per day: 0.0 Smoking status: Never smoker Alcohol intake: current Drinks per week: 1 Substance use: never Last use: 1 yr ago Lack of Transportation: No Lack of Food: Never True Current Housing: I Have Housing Concerned About Future Housing: No Difficulty Paying Gas/Electric Bills: No Difficulty Paying for Meds: YES Currently Unemployed: YES Education: High School Diploma/GED Difficulty w/ Childcare or Family Care: No Additional living arrangements comments: The patient is and lives with his and children in [place]. Additional occupation/education comments: Not currently working. Spiritual care concerns: No Meds Home Medications and Allergies Home Medications Medication Instructions Recorded Confirmed Type lovastatin 10 mg tablet 10 mg PO QPM 06/29/19 12/31/19 History metformin 500 mg tablet 500 mg PO BID 06/29/19 12/28/22 History Lexapro 20 mg PO DAILY 12/31/19 12/28/22 History ProAir HFA 2 puff inhalation QID #1 device 01/04/20 Rx dexamethasone 6 mg tablet 6 mg PO DAILY 5 days #5 tabs 01/04/20 Rx guaifenesin 600 mg tablet, 600 mg PO Q12HR #30 tabs 01/04/20 Rx extended release 12 hr (Mucus Relief ER) nystatin 100,000 unit/gram topical 1 applic topical BID #30 grams 02/23/21 Rx cream clotrimazole 1 % topical cream 1 applic topical BID 2 weeks #30 08/21/21 Rx grams Allergies Allergy/AdvReac Type Severity Reaction Status Date / Time No Known Allergies Allergy Verified 12/28/22 11:33 Vital Signs Vital Signs - 24 hr 12/28/22 11:49 Temperature 97.7 F Pulse Rate 87 Respiratory Rate 15 Blood Pressure 126/82 Pulse Oximetry 98 Oxygen Delivery Room Air Exam Narrative: General: Well-developed, nontoxic-appearing male sitting up in bed in no distress. He is in good spirits. Weight: 78.4 kg. BMI: 33.8. HEENT: PERRL, EOMI. Sclera anicteric. Oral mucosa moist. Tacky mucous membranes. Neck: Supple. Re
--- NOTE | 2022-12-28 17:42 | ADMGEN ---
This patient, Joseph Calvillo, was admitted to Intensive Care Unit-9. Patient/family oriented to hospital policies and general routines including ID bracelet, bed and alarms, visiting hours, pain management, procedures, bathroom and other care routines, personal items, smoking policy, room service/diet, and visiting hours. Information on how to activate the Rapid Response Team has been discussed. Patient/Family are encouraged to report perceived risks to care and to ask questions if they do not understand what they are told or what they should do.
[2022-12-28 17:48] LABS: Glucose Point of Care 137 mg/dl (65-105)
[2022-12-28] MEDS: KCL 20 MEQ/D5/0.45% SOD CHL 1,000 ML 150 ML IV CONT (17:50)
[2022-12-28 18:00] VITALS: BP 120/87; PULSE 77; PULSE 80; RESP 16; TEMP 36.8; O2SAT 100
[2022-12-28 18:49] LABS: Glucose Point of Care 157 mg/dl (65-105)
[2022-12-28 18:54] VITALS: BMI 33.7
[2022-12-28 19:05] LABS: Anion Gap 9 mmol/L (8-16); Blood Urea Nitrogen 10 mg/dL (9-20); Calcium 8.2 mg/dL (8.4-10.2); Carbon Dioxide 17 mmol/L (22-30); Chloride 108 mmol/L (98-107); Estimated CRCL calculation 136 ml/min; Estimated Glomerular Filt Rate > 60; Glucose 155 mg/dL (65-110); Magnesium 1.8 mg/dL (1.6-2.3); Phosphorus 1.9 mg/dL (2.5-4.5); Potassium 3.4 mmol/L (3.4-5.0); Sodium 134 mmol/L (137-145)
[2022-12-28] MEDS: INSULIN GLARGINE (*BKC) 100 UNITS/ML 15 UNITS SUB-Q (19:41)
[2022-12-28 19:49] LABS: Glucose Point of Care 188 mg/dl (65-105)
[2022-12-28 20:00] VITALS: BP 111/78; PULSE 64; RESP 12; TEMP 36.7; O2SAT 98
[2022-12-28 20:36] LABS: Glucose Point of Care 188 mg/dl (65-105)
[2022-12-28 21:31] LABS: Glucose Point of Care 226 mg/dl (65-105)
[2022-12-28] MEDS: INSULIN ASPART (*BKC) 100 UNITS/ML SUB-Q (21:36)
[2022-12-28 21:38] LABS: Hemoglobin A1C 11.4 % (<5.7)
[2022-12-28 22:00] VITALS: BP 111/74; PULSE 74; RESP 20; O2SAT 99
[2022-12-29] VITALS: BP 110/80; PULSE 74; RESP 16; TEMP 37; O2SAT 96
--- NOTE | 2022-12-29 02:47 | PC.NURSE ---
This patient, Joseph Calvillo, was transferred to [med-surg ] on 12/29/22 at 0217. Personal belongings sent with patient. Report given to [DION Alfaro ]. Appropriate documentation sent with patient. Pt to notify family of transfer.
[2022-12-29 02:48] LABS: Glucose Point of Care 346 mg/dl (65-105)
--- NOTE | 2022-12-29 03:13 | PC.NURSE ---
report received from [facility] and Pt arrived approx 0230. Pt stable, oriented to room, call light and personal belongings in reach.
[2022-12-29 07:04] LABS: Hematocrit 43.2 % (42.0-52.0); Hemoglobin 14.8 g/dL (14.0-18.0); Mean Corpuscular HGB Conc 34.3 g/dl (32-36); Mean Corpuscular Hemoglobin 30.1 pg (26-34); Mean Corpuscular Volume 87.8 fl (80-100); Mean Platelet Volume 11.1 fl (7.4-10.4); Platelet Count Result 185 k/mm3 (150-375); Red Blood Count 4.92 M/mm3 (4.6-6.20); Red Cell Distribution Width 12.7 % (11.5-14.5); White Blood Count 4.8 K/mm3 (4.5-10.0)
[2022-12-29 07:16] LABS: Anion Gap 11 mmol/L (8-16); Blood Urea Nitrogen 7 mg/dL (9-20); Calcium 8.5 mg/dL (8.4-10.2); Carbon Dioxide 16 mmol/L (22-30); Chloride 105 mmol/L (98-107); Estimated CRCL calculation 136 ml/min; Estimated Glomerular Filt Rate > 60; Glucose 277 mg/dL (65-110); Magnesium 1.8 mg/dL (1.6-2.3); Phosphorus 2.6 mg/dL (2.5-4.5); Potassium 3.8 mmol/L (3.4-5.0); Sodium 132 mmol/L (137-145)
[2022-12-29 07:27] VITALS: BP 103/72; PULSE 70; RESP 16; TEMP 36.4; O2SAT 100
[2022-12-29 08:38] LABS: Glucose Point of Care 264 mg/dl (65-105)
[2022-12-29] MEDS: ESCITALOPRAM OXALATE 10 MG TABLET 20 MG PO (09:32)
[2022-12-29] MEDS: INSULIN ASPART (*BKC) 100 UNITS/ML SUB-Q ×2 (09:33→11:58)
[2022-12-29] MEDS: MICONAZOLE NITRATE 2% CREAM 30 GM TUBE 1 APPLIC TOPICAL (09:41)
[2022-12-29 11:46] LABS: Glucose Point of Care 381 mg/dl (65-105)
--- NOTE | 2022-12-29 12:19 | PM.IMPN ---
Progress Note: A&P Assessment and Plan (1) Diabetic ketoacidosis, type II: Code(s): E11.10 - Type 2 diabetes mellitus with ketoacidosis without coma Status: Acute Assessment and Plan: Patient has been out of his metformin for at least a week and reports that his glucose has continued to climb each day. Preliminary workup consistent with DKA with a glucose of 619, anion gap 19, carbon dioxide 11, beta hydroxybutyrate 5.65, and 3+ ketones. Titrate insulin drip per DKA protocol. Q hour Accu-Cheks and q.4 hours BMPs. Monitor for anion gap closure. Will need basal insulin upon resolution of DKA as his hemoglobin A1c is 11.4%. (2) Candidal balanitis: Code(s): B37.42 - Candidal balanitis Status: Acute Assessment and Plan: Clotrimazole cream ordered b.i.d. (3) Hyperlipidemia: Code(s): E78.5 - Hyperlipidemia, unspecified Status: Chronic Assessment and Plan: Continue lovastatin. (4) Depression with anxiety: Code(s): F41.8 - Other specified anxiety disorders Status: Chronic Assessment and Plan: Continue Lexapro. Plan DVT prophylaxis with SCDs GI prophylaxis not indicated Code status full code Subjective Date/time seen: 12/29/22 12:19 Interval history: 42-year-old male with type 2 diabetes mellitus, hyperlipidemia, depression, and anxiety who presented to the emergency department via private vehicle for evaluation of high blood sugars. No overnight events noted. No chest pain or shortness of breath. No nausea, vomiting or diarrhea. No fevers or chills. Review of Systems Review of Systems: 12 point review of systems was assessed and was negative except as noted in the HPI Exam Narrative: General: No acute distress, alert and oriented per baseline HEENT: Atraumatic, normocephalic, mucous membranes moist CV: Regular rate and rhythm, S1, S2 Lungs: Clear to auscultation bilaterally, no rales or crackles noted, no wheezes, good air entry Abdomen: Soft, nontender, nondistended Extremities: Normal to inspection Skin: No rashes noted, no lesions or wounds seen Psych: Euthymic, normal affect Objective Data Vital Signs Vital Signs: Vital Signs - 24 hr 12/28/22 18:20 12/28/22 18:00 12/28/22 18:00 Temperature 98.2 F Pulse Rate 80 77 Respiratory Rate 16 Blood Pressure 120/87 Pulse Oximetry 100 Oxygen Delivery Room Air 12/28/22 20:00 12/28/22 20:00 12/28/22 20:00 Temperature 98.1 F Pulse Rate 64 64 Respiratory Rate 12 Blood Pressure 111/78 Pulse Oximetry 98 Oxygen Delivery Room Air 12/28/22 22:00 12/28/22 22:00 12/29/22 00:00 Temperature Pulse Rate 74 74 Respiratory Rate 20 Blood Pressure 111/74 Pulse Oximetry 99 Oxygen Delivery Room Air 12/29/22 00:00 12/29/22 00:00 12/29/22 07:27 Temperature 98.6 F 97.6 F Pulse Rate 74 74 70 Respiratory Rate 16 16 Blood Pressure 110/80 103/72 Pulse Oximetry 96 100 Oxygen Delivery 12/29/22 08:00 Temperature Pulse Rate Respiratory Rate Blood Pressure Pulse Oximetry Oxygen Delivery Room Air Intake/Output Intake/Output: Intake & Output 12/27/22 12/27/22 12/28/22 12/29/22 00:59 23:59 23:59 23:59 Intake Total 2825.6 560 Output Total 0 775 Balance 2825.6 -215 Meds/Results Medications: Active Medications Generic Name Dose Route Start Last Admin Trade Name Freq PRN Reason Stop Dose Admin Dextrose 12.5 gm 12/28/22 14:22 Dextrose 50% 25 Gm/50 Ml Syringe IV PUSH PRN PRN Hypoglycemia Protocol Escitalopram Oxalate 20 mg 12/29/22 09:00 12/29/22 09:32 Escitalopram Oxalate 10 Mg Tablet PO 01/28/23 08:59 20 mg DAILY PORTILLO Administration Glucagon 1 mg 12/28/22 14:22 Glucagon For Inj 1 Mg Vial IM PRN PRN Hypoglycemia Protocol Glucose 15 gm 12/28/22 14:22 Glucose Oral Gel 15 Gm Of Glucse In 37.5 Gm Tube PO PRN PRN
--- NOTE | 2022-12-29 12:25 | PM.DS ---
DS: Admitting Diagnosis Discharge Date 12/29/22 Admitting Diagnosis hyperglycemia, out of metformin DS: Discharge Diagnosis Discharge Diagnosis (1) Diabetic ketoacidosis, type II: Code(s): E11.10 - Type 2 diabetes mellitus with ketoacidosis without coma Status: Acute Assessment and Plan: Patient has been out of his metformin for at least a week and reports that his glucose has continued to climb each day. Preliminary workup consistent with DKA with a glucose of 619, anion gap 19, carbon dioxide 11, beta hydroxybutyrate 5.65, and 3+ ketones. Titrate insulin drip per DKA protocol. Q hour Accu-Cheks and q.4 hours BMPs. Monitor for anion gap closure. Will need basal insulin upon resolution of DKA as his hemoglobin A1c is 11.4%. (2) Candidal balanitis: Code(s): B37.42 - Candidal balanitis Status: Acute Assessment and Plan: Clotrimazole cream ordered b.i.d. (3) Hyperlipidemia: Code(s): E78.5 - Hyperlipidemia, unspecified Status: Chronic Assessment and Plan: Continue lovastatin. (4) Depression with anxiety: Code(s): F41.8 - Other specified anxiety disorders Status: Chronic Assessment and Plan: Continue Lexapro. Plan DVT prophylaxis with SCDs GI prophylaxis not indicated Code status full code DS: Summary Hospital Course Hospital Course: 42-year-old male with type 2 diabetes mellitus, hyperlipidemia, depression, and anxiety who presented to the emergency department via private vehicle for evaluation of high blood sugars. Patient has been out of his metformin for at least a week and reports that his glucose has continued to climb each day. Preliminary workup consistent with DKA with a glucose of 619, anion gap 19, carbon dioxide 11, beta hydroxybutyrate 5.65, and 3+ ketones. Titrate insulin drip per DKA protocol. Q hour Accu-Cheks and q.4 hours BMPs. Monitor for anion gap closure. Will need basal insulin upon resolution of DKA as his hemoglobin A1c is 11.4%. DKA resolved, all symptoms improved. Patient was discharged in stable condition on insulin and metformin with close outpatient follow-up already scheduled. Please see above and med rec for details. Time Spent with Patient Time attestation: Total time spent providing and/or coordinating discharge services: Exam Narrative: General: No acute distress, alert and oriented per baseline HEENT: Atraumatic, normocephalic, mucous membranes moist CV: Regular rate and rhythm, S1, S2 Lungs: Clear to auscultation bilaterally, no rales or crackles noted, no wheezes, good air entry Abdomen: Soft, nontender, nondistended Extremities: Normal to inspection Skin: No rashes noted, no lesions or wounds seen Psych: Euthymic, normal affect DS: Data Data Completed and Pending Labs on day of discharge: Labs from last 24 hours 12/29/22 12/29/22 12/29/22 11:29 08:02 06:31 WBC 4.8 RBC 4.92 Hgb 14.8 Hct 43.2 MCV 87.8 MCH 30.1 MCHC 34.3 RDW 12.7 Plt Count 185 MPV 11.1 H Sodium 132 L Potassium 3.8 Chloride 105 Carbon Dioxide 16 L Anion Gap 11 BUN 7 L Creatinine 0.50 L Estim Creat Clear Calc 136 Estimated GFR > 60 Glucose 277 H POC Capillary Glucose 381 H 264 H Hemoglobin A1c Calcium 8.5 Phosphorus 2.6 Magnesium 1.8 Beta-Hydroxybutyrate/Acetoacetate Urine Color Urine Appearance Urine pH Ur Specific [place] Urine Protein Urine Glucose (UA) Urine Ketones Ur Blood (Man) Urine Nitrate Urine Bilirubin Urine Urobilinogen Leukocyte Esterase Rfl Urine RBC Urine WBC Ur Squamous Epith Cells Urine Bacteria Urine Casts 12/29/22 12/28/22 12/28/22 02:38 21:27 20:32 WBC RBC Hgb Hct MCV MCH MCHC RDW Plt Count MPV Sodium Potassium Chloride Carbon Dioxide Anion Gap BUN Creat
[2022-12-29 15:47] LABS: Glucose Point of Care 319 mg/dl (65-105)
[2022-12-29 16:00] VITALS: BP 115/79; PULSE 68; RESP 14; TEMP 36.8; O2SAT 100
[2022-12-29] MEDS: INSULIN GLARGINE (*BKC) 100 UNITS/ML 20 UNITS SUB-Q (16:53)
[2022-12-29] MEDS: INSULIN ASPART (*BKC) 100 UNITS/ML 15 UNITS SUB-Q (16:53)
--- NOTE | 2022-12-29 20:06 | PC.NURSE ---
Pt was discharged home with self care. Pt IV's were removed tip intact. Pt tolerated well. Pt was monitored for any changes in status. Pt blood sugar was 319 prior to discharge. Provider was notified, insulin ordered. Pt monitored then discharged. Pt was taken down to vehicle, refused wheel chair.
== END 2022-12-29 17:15 | disposition home or self-care (01) | DRG 420 ==
LOC: ANHED 13:11 → ANHICU 16:41 → ANH3MEDSUR 12-29 02:26
PROVIDERS: Emergency Medicine; Internal Medicine; Admitting Provider Student in an Organized Health Care Education/Training Program; Emergency Provider Student in an Organized Health Care Education/Training Program; PCP Physician Assistant; Visit Provider Student in an Organized Health Care Education/Training Program
DX: E11.10 Type 2 diabetes mellitus with ketoacidosis without coma (principal); B37.42 Candidal balanitis; E78.5 Hyperlipidemia, unspecified; F32.A Depression, unspecified
CPT/HCPCS: 36415; 80048; 80053; 81001; 82010; 82948; 83036; 83735; 84100; 85025; 85027; 99285; A9270; J1815; J3480; J7030; J7040

== ENCOUNTER 2023-08-11 15:31 | Emergency (ER) | payer OTHER, SELFPAY ==
--- NOTE | ~2023-08-11 | XR_ITS ---
CORRECTED REPORT corrected patients 08/12/2023 This report was recreated on 08/12/23. Original report was XR chest 2V Ordering provider: Javi Sotelo APRN History: 42 years Male with . ELEVATED BLOOD SUGAR, DIZZINESS . Comparison: None. FINDINGS: MEDIASTINUM: The cardiac silhouette is not enlarged. LUNGS: No infiltrates, effusions or pneumothorax. OTHER: No free air under the diaphragm. Degenerative changes of the spine. IMPRESSION: No acute cardiopulmonary pathology. Reviewed, dictated and finalized at location A. MTDD
[2023-08-11 15:37] VITALS: BP 117/67; PULSE 86; RESP 16; TEMP 36.6; O2SAT 97
[2023-08-11 15:45] LABS: Glucose Point of Care 367 mg/dl (65-105)
[2023-08-11 16:04] LABS: Appearance Urine Clear (Clear); Bilirubin Urine Negative (Negative); Blood Urine Negative (Negative); Color Urine Yellow (Yellow); Glucose Urine UA 3+ mg/dL (Negative); Ketones Urine 2+ mg/dL (Negative); Leukocyte Esterase Ur Negative LEU/UL (Negative); Nitrate Urine Negative (Negative); Protein Urine Negative (Negative); Urobilinogen Urine 0.2 mg/dL (<2.0); pH Urine 5.5 (5.0-9.0)
[2023-08-11 16:07] LABS: Specific Grav Ur 1.034 (1.001-1.035)
[2023-08-11 16:08] LABS: Add Urine Microscopic? NO
--- NOTE | 2023-08-11 16:14 | ECG_ITS ---
Test Date: 2023-08-11 16:25:48 Measurements Intervals [place] Rate: 70 P: 51 CT: 132 QRS: 39 QRSD: 89 T: 45 QT: 388 QTc: 420 Interpretive Statements SINUS RHYTHM ST ELEVATION, CONSIDER EARLY REPOLARIZATION VERSUS PERICARDITIS ABNORMAL ECG No previous ECG available for comparison Electronically Signed On 08-12-2023 15:06:32 CDT by Javi Rubalcava M.D.
[2023-08-11] MEDS: SODIUM CHLORIDE 0.9% IV 1,000 ML 999 ML IV CONT ×2 (16:20→17:13)
--- NOTE | 2023-08-11 16:23 | ED.GENADULT ---
HPI - General Adult General Chief complaint: Recheck/Abnormal Lab/Rx Stated complaint: high BS Time Seen by Provider: 08/11/23 15:54 History of Present Illness HPI narrative: peripheral male history of type 2 diabetes dyslipidemia presents to the emergency room for evaluation of elevated blood sugar readings at home. Patient also Reports polyuria and polydipsia and generalized fatigue. States over the past 3 days he has been experiencing a constant epigastric pain that is worse with activity. Denies any shortness of breath difficulty breathing dizziness or lightheadedness. States he has been monitoring his blood sugars at home, getting readings of 400-500. patient denies any changes to his diabetes medications. Review of Systems Review of Systems: Review of systems unremarkable except were noted in the HPI Exam Narrative: GENERAL: Well-appearing, well-nourished, no physical limitations, and in no acute distress. HEAD: Normocephalic, atraumatic. EYES: Conjunctivae normal, PERRLA and EOMI. CHEST: Clear to auscultation. No respiratory distress. No wheezes rales or rhonchi. HEART: Regular rate and rhythm. No murmur heard. Normal peripheral pulses. ABDOMEN: Soft, nontender, nondistended, normal active bowel sounds. EXTREMITIES: Normal range of motion. No edema. No clubbing or cyanosis SKIN: Warm, dry, no rash. No noted wounds NEURO: No focal deficits. Alert and oriented x3. MAEW. CN's II-XI intact bilaterally, normal gait PSYCH: Cooperative. Normal mood and affect. Course Vital Signs Vital signs: Vital Signs Temperature 36.6 C 08/11/23 15:37 Pulse Rate 86 08/11/23 15:37 Respiratory Rate 16 08/11/23 15:37 Blood Pressure 117/67 08/11/23 15:37 Pulse Oximetry 97 08/11/23 15:37 Oxygen Delivery Room Air 08/11/23 15:37 Temperature 36.6 C 08/11/23 15:37 Pulse Rate 86 08/11/23 15:37 Respiratory Rate 16 08/11/23 15:37 Blood Pressure 117/67 08/11/23 15:37 Pulse Oximetry 97 08/11/23 15:37 Oxygen Delivery Room Air 08/11/23 15:37 Medical Decision Making MDM Narrative Medical decision making narrative: 43-year-old male history of type 2 diabetes presented to emergency room for evaluation of elevated blood sugars for 2 weeks. Patient stated that he was getting readings blood sugars in the range of 400-500. On presentation to the ER, patient's blood sugar was around 350. Patient was given 2 L of fluid. His urine shows evidence of ketones and ABG shows no evidence of acidosis. Patient is nontoxic appearing no signs of infection or ischemia. Single troponin was negative. EKG showed signs of early repolarization. repeat blood sugar after 2 L of fluid was 200. potassium magnesium, phosphorus levels were all within normal limits. Patient reported improvement in symptoms following his fluid. Will discharge patient home With close follow-up to PCP Vital Signs Vital Signs: Vital Signs Temperature 36.6 C 08/11/23 15:37 Pulse Rate 86 08/11/23 15:37 Respiratory Rate 16 08/11/23 15:37 Blood Pressure 117/67 08/11/23 15:37 Pulse Oximetry 97 08/11/23 15:37 Oxygen Delivery Room Air 08/11/23 15:37 Temperature 36.6 C 08/11/23 15:37 Pulse Rate 86 08/11/23 15:37 Respiratory Rate 16 08/11/23 15:37 Blood Pressure 117/67 08/11/23 15:37 Pulse Oximetry 97 08/11/23 15:37 Oxygen Delivery Room Air 08/11/23 15:37 Lab Data Labs: Lab Results 08/11/23 08/11/23 Range/Units 15:40 15:58 POC Capillary Glucose 367 H (65-105) mg/dl Urine Color Yellow (Yellow) Urine Appearance Clear (Clear) Urine pH 5.5 (5.0-9.0) Ur Specific [place] 1.034 (1.001-1.035) Urine Protein Negative (Negative) mg/dL Urine Glucose (UA) 3+ H (Negative) mg/dL Urine Ketones 2+ H (Negative) mg/dL Ur Blood (Man) Negative (Negative) Urine Nitrate Negative (Negative) Urine Bilirubin Negative (Negative) Urine Urobilino
[2023-08-11 16:38] LABS: Alveolar/Arterial O2 Gradient 27.3 mmHg; Base Excess ABG -5.4 mEq/l (+/-2.0); Fractional Inspired Oxygen 21 %; HCO3 ABG 18.8 mEq/l (22.0-26.0); Oxygen Content ABG 18.9 %vol (16.0-22.0); Oxygen Saturation ABG 96.1 % (95.0-100.0); PO2 ABG 82.9 mmHg (80.0-100.0); PO2 FiO2 Ratio Arterial Blood 3.95 %; Total Hemoglobin 14.1 g/dL (12.0-18.0); pH ABG 7.373 (7.350-7.450)
[2023-08-11 16:38] LABS: Basophils Percent Auto 0.4 % (0.2-1.2); Eosinophils Absolute Auto 0.1 K/mm3 (0-0.3); Eosinophils Percent Auto 0.8 % (0-4.4); Hematocrit 43.4 % (42.0-52.0); Hemoglobin 15.6 g/dL (14.0-18.0); Immature Granulocyte Absolute 0.03 K/mm3 (0.00-0.031); Immature Granulocyte Percent A 0.4 % (0-0.5); Lymphocytes Absolute Auto 1.89 K/mm3 (0.9-3.2); Lymphocytes Percent Auto 26.3 % (18.3-44.2); Mean Corpuscular HGB Conc 35.9 g/dl (32-36); Mean Corpuscular Hemoglobin 30.6 pg (26-34); Mean Corpuscular Volume 85.1 fl (80-100); Mean Platelet Volume 10.5 fl (7.4-10.4); Monocytes Absolute Auto 0.5 K/mm3 (0.1-0.6); Monocytes Percent Auto 6.5 % (2.6-8.5); Neutrophils Absolute Auto 4.7 K/mm3 (1.3-6.7); Neutrophils Percent Auto 65.6 % (45.5-73.1); Platelet Count Result 227 k/mm3 (150-375); Red Cell Distribution Width 11.7 % (11.5-14.5); White Blood Count 7.2 K/mm3 (4.5-10.0)
[2023-08-11 16:40] LABS: Device ROOM AIR; Site Drawn RIGHT RADIAL
[2023-08-11 16:55] LABS: Alanine Aminotransferase 24 U/L (6-50); Albumin Level 4.5 g/dL (3.5-5.1); Alkaline Phosphatase 137 U/L (38-126); Anion Gap 14 mmol/L (4-12); Aspartate Amino Transferase 30 U/L (17-59); Bilirubin,Total 0.7 mg/dL (0.2-1.3); Blood Urea Nitrogen 21 mg/dL (9-20); Calcium 9.3 mg/dL (8.4-10.2); Carbon Dioxide 20 mmol/L (22-30); Chloride 99 mmol/L (98-107); Estimated CRCL calculation 77 ml/min; Estimated Glomerular Filt Rate > 60; Glucose 323 mg/dL (65-110); Magnesium 1.8 mg/dL (1.6-2.3); Phosphorus 4.3 mg/dL (2.5-4.5); Potassium 4.2 mmol/L (3.4-5.0); Sodium 133 mmol/L (137-145)
[2023-08-11 17:03] LABS: Troponin I < 0.012 ng/mL (0.000-0.034)
[2023-08-11 17:15] LABS: Beta-Hydroxybutyrate/Acetoacetate 2.57 mmol/L (0.02-0.27)
[2023-08-11 17:30] VITALS: BP 108/73; PULSE 66; RESP 16; O2SAT 94
[2023-08-11 17:41] LABS: Glucose Point of Care 206 mg/dl (65-105)
== END 2023-08-11 18:05 | disposition home or self-care (01) ==
PROVIDERS: Emergency Provider Nurse Practitioner Family
DX: E11.65 Type 2 diabetes mellitus with hyperglycemia (principal); E78.5 Hyperlipidemia, unspecified; Z79.899 Other long term (current) drug therapy; Z79.84 Long term (current) use of oral hypoglycemic drugs; Z79.4 Long term (current) use of insulin; R94.31 Abnormal electrocardiogram [ECG] [EKG]
CPT/HCPCS: 36415; 36600; 71046; 80053; 81003; 82010; 82805; 82948; 83605; 83735; 84100; 84484; 85025; 93005; 96360; 99283; J7030

== ENCOUNTER 2023-09-02 12:28 | Emergency (ER) | payer OTHER, SELFPAY ==
[2023-09-02] VITALS (20 sets, daily range): BP systolic 100–110; BP diastolic 67–70; PULSE 61–77; RESP 15–20; TEMP 36.4; O2SAT 95–100
[2023-09-02 12:34] LABS: Glucose Point of Care 472 mg/dl (65-105)
--- NOTE | 2023-09-02 13:15 | ED.GENADULT ---
HPI - General Adult General Chief complaint: Recheck/Abnormal Lab/Rx Stated complaint: hyperglycemia Time Seen by Provider: 09/02/23 12:55 Source: patient Mode of arrival: ambulatory Limitations: no limitations History of Present Illness HPI narrative: 43 YEARS OLD MALE CAME TO THE EMERGENCY ROOM BY PRIVATE CAR COMPLAINING OF HIS BLOOD GLUCOSE LEVEL THIS MORNING WAS 470. PATIENT HE CHECKS HIS BLOOD PRESSURE EVERY NOW AND THEN ECZEMA ONCE A DAY. HE DENIES ANY FEVER, CHILLS, NAUSEA, VOMITING, ABDOMINAL PAIN, CHEST PAIN OR BACK PAIN OR ANY OTHER SYMPTOMS. PATIENT IS TELLING ME THAT HE TAKES MED HIS MEDICATION SCHEDULES. Related Data Home Medications Medication Instructions Recorded Confirmed lovastatin 10 mg tablet 10 mg PO QPM 06/29/19 12/31/19 Lexapro 20 mg PO DAILY 12/31/19 12/28/22 Allergies Allergy/AdvReac Type Severity Reaction Status Date / Time No Known Allergies Allergy Verified 09/02/23 12:33 Review of Systems Review of Systems: All systems reviewed & are unremarkable except as noted in HPI and below PMFSH Past Medical History Medical History Depression with anxiety Hyperlipidemia Type 2 diabetes mellitus Surgical History Surgical History No history of previous surgery Family History Family History Unknown Family history unknown Social History Social History Social History: Surrogate medical decision maker: Irene Cummings, spouse. Code status: Full code. Smoking packs per day: 0 Smoking cigarettes per day: 0.0 Smoking status: Never smoker Alcohol intake: current Drinks per week: 1 Substance use: never Last use: 1 yr ago Lack of Transportation: No Lack of Food: Never True Current Housing: I Have Housing Concerned About Future Housing: No Difficulty Paying Gas/Electric Bills: No Difficulty Paying for Meds: YES Currently Unemployed: YES Education: High School Diploma/GED Difficulty w/ Childcare or Family Care: No Additional living arrangements comments: The patient is and lives with his and children in [place]. Additional occupation/education comments: Not currently working. Spiritual care concerns: No Exam Narrative: GENERAL APPEARANCE: WELL-DEVELOPED, WELL-NOURISHED SKIN: NORMAL COLOR HEAD: NORMOCEPHALIC, NONTRAUMATIC EYES: CLEAR CONJUNCTIVA ENT: OROPHARYNX NORMAL, EARS NORMAL, NOSE NORMAL NECK: SUPPLE, NONTENDER CHEST AND RESPIRATORY: AIRWAY PATENT, NO RESPIRATORY DISTRESS, NO ACCESSORY MUSCLE USE HEART: REGULAR RATE/RHYTHM ABDOMEN: SOFT, NONTENDER, NO ORGANOMEGALY, QUIET BOWEL SOUNDS VASCULAR: NORMAL PERIPHERAL PULSES, NORMAL CAPILLARY REFILL. MUSCULOSKELETAL: NORMAL RANGE OF MOTION, NONTENDER BACK NEUROLOGIC: ALERT AND ORIENTED ?3, EXTRUSION DIE TEMPLATE MAKER IS NORMAL TESTED, NO GROSS MOTOR DEFICIT Course Vital Signs Vital signs: Vital Signs Temperature 36.4 C L 09/02/23 12:28 Pulse Rate 73 09/02/23 12:28 Respiratory Rate 16 09/02/23 12:28 Blood Pressure 105/67 09/02/23 12:28 Pulse Oximetry 97 09/02/23 12:28 Oxygen Delivery Room Air 09/02/23 12:28 Temperature 36.4 C L 09/02/23 12:28 Pulse Rate 73 09/02/23 12:28 Respiratory Rate 16 09/02/23 12:28 Blood Pressure 105/67 09/02/23 12:28 Pulse Oximetry 97 09/02/23 12:28 Oxygen Delivery Room Air 09/02/23 12:28 Medical Decision Making MDM Narrative Medical decision making narrative: DIFFERENTIAL DIAGNOSIS INCLUDES HYPERGLYCEMIA SECONDARY T
[2023-09-02 14:25] LABS: Fractional Inspired Oxygen 21 %; HCO3 VBG 21.8 mEq/l (24.0-30.0); PCO2 VBG 33.5 mmHg (42.0-48.0); PO2 VBG 72.6 mmHg (35.0-45.0)
[2023-09-02 14:28] LABS: pH VBG 7.432 (7.300-7.400)
[2023-09-02 14:29] LABS: Device ROOM AIR
[2023-09-02 14:30] LABS: Basophils Percent Auto 0.4 % (0.2-1.2); Eosinophils Absolute Auto 0.1 K/mm3 (0-0.3); Eosinophils Percent Auto 1.3 % (0-4.4); Hematocrit 42.6 % (42.0-52.0); Immature Granulocyte Absolute 0.02 K/mm3 (0.00-0.031); Immature Granulocyte Percent A 0.4 % (0-0.5); Lymphocytes Absolute Auto 1.93 K/mm3 (0.9-3.2); Lymphocytes Percent Auto 36.3 % (18.3-44.2); Mean Corpuscular HGB Conc 35.2 g/dl (32-36); Mean Corpuscular Hemoglobin 30.5 pg (26-34); Mean Corpuscular Volume 86.6 fl (80-100); Mean Platelet Volume 10.5 fl (7.4-10.4); Monocytes Absolute Auto 0.4 K/mm3 (0.1-0.6); Monocytes Percent Auto 7.2 % (2.6-8.5); Neutrophils Absolute Auto 2.9 K/mm3 (1.3-6.7); Neutrophils Percent Auto 54.4 % (45.5-73.1); Platelet Count Result 191 k/mm3 (150-375); Red Blood Count 4.92 M/mm3 (4.6-6.20); Red Cell Distribution Width 12.5 % (11.5-14.5); White Blood Count 5.3 K/mm3 (4.5-10.0)
[2023-09-02] MEDS: SODIUM CHLORIDE 0.9% IV 1,000 ML 999 ML IV CONT (14:30)
[2023-09-02 14:36] LABS: Appearance Urine Clear (Clear); Bilirubin Urine Negative (Negative); Blood Urine Negative (Negative); Color Urine Yellow (Yellow); Glucose Urine UA 3+ mg/dL (Negative); Ketones Urine Negative (Negative); Leukocyte Esterase Ur Negative LEU/UL (Negative); Nitrate Urine Negative (Negative); Protein Urine Negative (Negative); Specific Grav Ur 1.031 (1.001-1.035); Urobilinogen Urine 0.2 mg/dL (<2.0); pH Urine 6.5 (5.0-9.0)
[2023-09-02 14:38] LABS: Alanine Aminotransferase 21 U/L (6-50); Albumin Level 4.4 g/dL (3.5-5.1); Alkaline Phosphatase 165 U/L (38-126); Anion Gap 10 mmol/L (4-12); Aspartate Amino Transferase 20 U/L (17-59); Bilirubin,Total 0.6 mg/dL (0.2-1.3); Blood Urea Nitrogen 15 mg/dL (9-20); Carbon Dioxide 23 mmol/L (22-30); Chloride 101 mmol/L (98-107); Estimated Glomerular Filt Rate > 60; Glucose 277 mg/dL (65-110); Magnesium 2.2 mg/dL (1.6-2.3); Phosphorus 3.9 mg/dL (2.5-4.5); Potassium 3.9 mmol/L (3.4-5.0); Sodium 134 mmol/L (137-145)
[2023-09-02] MEDS: INSULIN HUMAN REGULAR (*BKC) 100 UNITS/ML 11 UNITS IV PUSH (14:38)
[2023-09-02 14:43] LABS: Add Urine Microscopic? NO
[2023-09-02 16:08] LABS: Glucose Point of Care 59 mg/dl (65-105)
--- NOTE | 2023-09-02 16:13 | PC.NURSE ---
Repeat FSBS 59. Pt A&Ox4 but diaphoretic. MD Contreras made aware and patient provided sandwich, orange juice, and bag of pretzels. Pt now eating.
[2023-09-02 16:57] LABS: Glucose Point of Care 206 mg/dl (65-105)
== END 2023-09-02 18:22 | disposition home or self-care (01) ==
PROVIDERS: Emergency Provider Emergency Medicine; PCP Physician Assistant
DX: E11.65 Type 2 diabetes mellitus with hyperglycemia (principal); E78.5 Hyperlipidemia, unspecified; Z79.899 Other long term (current) drug therapy; Z79.84 Long term (current) use of oral hypoglycemic drugs; Z79.4 Long term (current) use of insulin
CPT/HCPCS: 36415; 80053; 81003; 82803; 82948; 83735; 84100; 85025; 96361; 96374; 99284; J1815; J7030

== ENCOUNTER 2023-10-12 02:26 | Day surgery (SDC) | payer OTHER, SELFPAY ==
--- NOTE | 2023-09-23 14:13 | PC.NURSE ---
Pre-surgical phone interview completed with paraprofessional interpreter Ana #[id number].
--- NOTE | 2023-09-23 14:14 | PC.NURSE ---
During pre-surgical phone interview, patient states he does not want to have colonoscopy completed. He states he would only like to have the EGD complete.
--- NOTE | 2023-09-24 08:00 | SUR.PREOP ---
Pt called yesterday for his PAT call. Patient said he would not do the prep for the colonoscopy and didn't want the colonoscopy done. Colonoscopy removed from the procedure and call made to his PCP to make them aware.
--- NOTE | 2023-10-11 10:12 | PC.NURSE ---
Pt called utilizing Interpretive services, neonatal surgeon #[phone]. Confirmed arrival time for 10/11, NPO after midnight and does have a bulk driver, son Shawn.
[2023-10-12 08:12] VITALS: BP 118/82; PULSE 58; RESP 20; TEMP 35.9; O2SAT 100; BMI 32.1
--- NOTE | 2023-10-12 08:23 | WPDANESEPPF ---
Anes - Initial Pre Proc Eval Procedure: Operation Date: 10/12/23 09:00 Proposed Procedures p Esophagogastroduodenoscopy - Winston Britt MD Date/Time: 10/12/23 08:23 Surgeon: Winston Britt MD Pre Op Diagnosis: Chest pain, Parageusia, Neoplasm screening Patient Data Age: 43 Gender: M Height: 1.52 m Weight: 74.5 kg Last Vital Signs Temp 96.7 F L 10/12/23 08:12 Pulse 58 L 10/12/23 08:12 Resp 20 10/12/23 08:12 BP 118/82 10/12/23 08:12 Pulse Ox 100 10/12/23 08:12 O2 Del Method Room Air 10/12/23 08:12 Allergies Allergy/AdvReac Type Severity Reaction Status Date / Time No Known Allergies Allergy Verified 09/23/23 13:21 Home Medications Medication Instructions Recorded Confirmed Type blood-glucose meter (OneTouch #1 pkg 12/29/22 10/12/23 Rx Verio Flex Meter) lancets 30 gauge (OneTouch Delica #1 pkg 12/29/22 10/12/23 Rx Plus Lancet) metformin 500 mg tablet 500 mg PO BID 1 month #60 tabs 12/29/22 10/12/23 Rx canagliflozin 300 mg tablet 300 mg PO DAILY 09/23/23 10/12/23 History (Invokana) insulin glargine 100 unit/mL (3 10 unit subcut QAM 09/23/23 10/12/23 History mL) subcutaneous pen (Lantus Solostar U-100 Insulin) simvastatin 20 mg tablet 20 mg PO DAILY 09/23/23 10/12/23 History Patient hx anesthesia problems: none Family hx anesthesia problems: none Results Review: All pre-operative results and documents have been reviewed as part of the pre-operative evaluation. [facility] Past Medical History Medical History (Updated 09/07/23 @ 12:02 by SCOT Beaver) Chest pain Depression with anxiety Dysgeusia Encounter for screening colonoscopy Hyperlipidemia Type 2 diabetes mellitus Surgical History Surgical History No history of previous surgery Family History Family History Unknown Family history unknown Social History Social History Social History: Surrogate medical decision maker: Irene Cummings, spouse. Code status: Full code. Smoking packs per day: 0 Smoking cigarettes per day: 0.0 Smoking status: Never smoker Alcohol intake: current Drinks per week: 1 Substance use: never Substance use type: does not use Last use: 1 yr ago Lack of Transportation: No Lack of Food: Never True Current Housing: I Have Housing Concerned About Future Housing: No Difficulty Paying Gas/Electric Bills: No Difficulty Paying for Meds: YES Currently Unemployed: YES Education: High School Diploma/GED Difficulty w/ Childcare or Family Care: No Living arrangements: with family Additional living arrangements comments: The patient is and lives with his and children in [place]. Additional occupation/education comments: Not currently working. Spiritual care concerns: No Anes - Eval Final PreProcedure Day of Procedure 10/12/23 08:23 Patient weight: obese Heart: regular rate and rhythm Lungs: clear to auscultation Airway: Mallampati scale class II Neurological: alert and oriented Last oral intake: >/= 8 hours ASA classification: II Emergent: no Anesthetic plan: proceed Anesthesia type and monitoring: general GIVS and standard monitoring Results Review: All pre-operative results and documents have been reviewed as part of the pre-operative evaluation. Informed Consent: The patient's anesthetic plan and its attendant risks and benefits were discussed with the patient/family/POA. Questions were solicited and answers provided to the satisfaction of the patient/family/POA.
[2023-10-12] MEDS: LACTATED RINGERS 1,000 ML 150 ML IV CONT (08:37)
[2023-10-12 08:38] LABS: Glucose Point of Care 134 mg/dl (65-105)
--- NOTE | 2023-10-12 09:01 | PM.HPGS ---
History of Present Illness History of Present Illness Consent: Risks, benefits, and alternatives have been discussed and questions answered. Patient agrees to proceed with procedure. Chief complaint: Chest pain, Parageusia, Neoplasm screening Narrative: Joseph Calvillo is a 43 year old male here for first egd, one year of intermittent left sided chest pain Review of Systems Review of Systems: All systems reviewed & are unremarkable except as noted in HPI and below PMFSH Past Medical History Medical History (Updated 09/07/23 @ 12:02 by SCOT Beaver) Chest pain Depression with anxiety Dysgeusia Encounter for screening colonoscopy Hyperlipidemia Type 2 diabetes mellitus Surgical History Surgical History No history of previous surgery Family History Family History Unknown Family history unknown Social History Social History Social History: Surrogate medical decision maker: Irene Cummings, spouse. Code status: Full code. Smoking packs per day: 0 Smoking cigarettes per day: 0.0 Smoking status: Never smoker Alcohol intake: current Drinks per week: 1 Substance use: never Substance use type: does not use Last use: 1 yr ago Lack of Transportation: No Lack of Food: Never True Current Housing: I Have Housing Concerned About Future Housing: No Difficulty Paying Gas/Electric Bills: No Difficulty Paying for Meds: YES Currently Unemployed: YES Education: High School Diploma/GED Difficulty w/ Childcare or Family Care: No Living arrangements: with family Additional living arrangements comments: The patient is and lives with his and children in [place]. Additional occupation/education comments: Not currently working. Spiritual care concerns: No Meds Home Medications and Allergies Home Medications Medication Instructions Recorded Confirmed Type blood-glucose meter (OneTouch #1 pkg 12/29/22 10/12/23 Rx Verio Flex Meter) lancets 30 gauge (OneTouch Delica #1 pkg 12/29/22 10/12/23 Rx Plus Lancet) metformin 500 mg tablet 500 mg PO BID 1 month #60 tabs 12/29/22 10/12/23 Rx canagliflozin 300 mg tablet 300 mg PO DAILY 09/23/23 10/12/23 History (Invokana) insulin glargine 100 unit/mL (3 10 unit subcut QAM 09/23/23 10/12/23 History mL) subcutaneous pen (Lantus Solostar U-100 Insulin) simvastatin 20 mg tablet 20 mg PO DAILY 09/23/23 10/12/23 History Allergies Allergy/AdvReac Type Severity Reaction Status Date / Time No Known Allergies Allergy Verified 09/23/23 13:21 Vital Signs Vital Signs - 24 hr 10/12/23 08:12 Temperature 96.7 F L Pulse Rate 58 L Respiratory Rate 20 Blood Pressure 118/82 Pulse Oximetry 100 Oxygen Delivery Room Air Exam Const: General: comfortable and no acute distress HENMT: Face/Nose/Sinus: Normal nares present Eyes: General: appearance normal, both eyes and all related structures Neck: Neck: no JVD Resp: Auscultation: clear to auscultation bilaterally Cardio: Rate: regular rate Rhythm: regular rhythm GI: Inspection: non-distended GI Palp: Yes Soft to palpation Skin: General skin exam: normal color Neuro: General: gait normal Speech: normal speech Extrem: General: normal to inspection Psych: Mental Status: mental status grossly normal Assessment and Plan Assessment and plan (1) Chest pain: Code(s): R07.9 - Chest pain, unspecified Status: Acute Assessment and Plan: egd to assess if gi source
[2023-10-12 09:20] VITALS: BP 100/65; PULSE 60; RESP 16; O2SAT 97
[2023-10-12 09:30] VITALS: BP 104/69; PULSE 61; RESP 16; O2SAT 97
[2023-10-12 09:32] LABS: Glucose Point of Care 106 mg/dl (65-105)
[2023-10-12 09:40] VITALS: BP 112/64; PULSE 65; RESP 18; O2SAT 98
--- NOTE | 2023-10-12 09:45 | PC.NURSE ---
Farhat was used to interpret discharge instructions. [employer]er Adonis [id number].
== END 2023-10-12 09:53 | disposition home or self-care (01) ==
PROVIDERS: PCP Physician Assistant; Visit Provider Internal Medicine Gastroenterology
PROC: 0DJ08ZZ Inspection of Upper Intestinal Tract, Via Natural or Artificial Opening Endoscopic (ICD-10-PCS; CPT 43235; principal; 2023-10-12 09:00)
DX: R07.89 Other chest pain (principal); E78.5 Hyperlipidemia, unspecified; E11.9 Type 2 diabetes mellitus without complications; F41.8 Other specified anxiety disorders; E66.9 Obesity, unspecified; Z68.32 Body mass index [BMI] 32.0-32.9, adult; Z79.84 Long term (current) use of oral hypoglycemic drugs; Z79.4 Long term (current) use of insulin
CPT/HCPCS: 43239; 82948; 88305; J2704; J7120

== ENCOUNTER 2024-03-07 06:23 | Emergency (ER) | payer OTHER, SELFPAY ==
[2024-03-07] VITALS (8 sets, daily range): BP systolic 110–125; BP diastolic 68–85; PULSE 80–98; RESP 14–21; TEMP 36.6–36.9; O2SAT 96–100
[2024-03-07 06:40] LABS: Glucose Point of Care 342 mg/dl (65-105)
--- NOTE | 2024-03-07 06:51 | ECG_ITS ---
Test Date: 2024-03-07 06:54:46 Measurements Intervals [place] Rate: 86 P: 143 IA: 151 QRS: 91 QRSD: 85 T: 103 QT: 325 QTc: 389 Interpretive Statements SINUS RHYTHM BORDERLINE RIGHT AXIS DEVIATION [QRS AXIS > 90] Compared to ECG 08/11/2023 16:25:48 NO SIGNIFICANT CHANGES Electronically Signed On 03-07-2024 15:21:12 PROFESSOR OF PRACTICE by Kavya Griffith M.D.
[2024-03-07 07:15] LABS: Basophils Percent Auto 0.4 % (0.2-1.2); Eosinophils Absolute Auto 0.1 K/mm3 (0-0.3); Eosinophils Percent Auto 1.1 % (0-4.4); Hematocrit 46.7 % (42.0-52.0); Hemoglobin 16.6 g/dL (14.0-18.0); Immature Granulocyte Absolute 0.02 K/mm3 (0.00-0.031); Immature Granulocyte Percent A 0.4 % (0-0.5); Lymphocytes Absolute Auto 1.64 K/mm3 (0.9-3.2); Mean Corpuscular HGB Conc 35.5 g/dl (32-36); Mean Corpuscular Hemoglobin 31.4 pg (26-34); Mean Corpuscular Volume 88.3 fl (80-100); Mean Platelet Volume 10.4 fl (7.4-10.4); Monocytes Absolute Auto 0.4 K/mm3 (0.1-0.6); Neutrophils Absolute Auto 3.3 K/mm3 (1.3-6.7); Neutrophils Percent Auto 61.1 % (45.5-73.1); Platelet Count Result 230 k/mm3 (150-375); Red Blood Count 5.29 M/mm3 (4.6-6.20); Red Cell Distribution Width 12.2 % (11.5-14.5); White Blood Count 5.5 K/mm3 (4.5-10.0)
[2024-03-07 07:17] LABS: Add Urine Microscopic? NO; Appearance Urine Clear (Clear); Bilirubin Urine Negative (Negative); Blood Urine Negative (Negative); Color Urine Yellow (Yellow); Glucose Urine UA 3+ mg/dL (Negative); Ketones Urine Trace mg/dL (Negative); Leukocyte Esterase Ur Negative LEU/UL (Negative); Nitrate Urine Negative (Negative); Protein Urine Negative (Negative); Specific Grav Ur 1.038 (1.001-1.035); Urobilinogen Urine 0.2 mg/dL (<2.0)
--- NOTE | 2024-03-07 07:20 | ED_ITS ---
HPI - Recheck/Abnormal Lab/Rx General Chief Complaint: Recheck/Abnormal Lab/Rx Stated Complaint: glucose level high pt has diabetes Time Seen by Provider: 03/07/24 07:12 Source: patient Mode of arrival: ambulatory Limitations: no limitations History of Present Illness HPI narrative: 43 YEARS OLD MALE DOES NOT SPEAK SYRIAC CAME TO THE ED BY PRIVATE CAR COMPLAINING OF ELEVATED BLOOD GLUCOSE IN THE RANGE OF 300-400 OVER THE LAST 3-4 WEEKS. ALSO COMPLAINING OF INTERMITTENT CHEST PAIN FOR 1 WEEK, DENIES AGGRAVATING OR RELIEVING FACTORS BUT HE FEEL IT MORE WHEN HIS BLOOD GLUCOSE IS HIGH. HE DENIES ANY FEVER, CHILLS, NAUSEA, VOMITING, DIARRHEA, CONSTIPATION OR URINARY SYMPTOMS OR RESPIRATORY SYMPTOMS. HISTORY OF DIABETES, DENIES ANY FAMILY HISTORY OF CORONARY ARTERY DISEASE, PATIENT DRINKS OCCASIONALLY, SMOKES CIGARETTE, DENIES DRUG USE. Related Data Home Medications ?Medication ?Instructions ?Recorded ?Confirmed ?Last Taken ?Type canagliflozin 300 mg tablet 300 mg PO DAILY 09/23/23 10/12/23 10/11/23 History (Invokana) insulin glargine 100 unit/mL (3 10 unit subcut QAM 09/23/23 10/12/23 10/11/23 History mL) subcutaneous pen (Lantus Solostar U-100 Insulin) simvastatin 20 mg tablet 20 mg PO DAILY 09/23/23 10/12/23 10/11/23 History Allergies Allergy/AdvReac Type Severity Reaction Status Date / Time No Known Allergies Allergy Verified 09/23/23 13:21 Review of Systems 2 Review of Systems: All systems reviewed & are unremarkable except as noted in HPI and below PMFSH Past Medical History Medical History Chest pain Dysgeusia Encounter for screening colonoscopy Type 2 diabetes mellitus Depression with anxiety Hyperlipidemia Surgical History Surgical History No history of previous surgery Family History Family History Unknown Family history unknown Social History Social History Social History: Surrogate medical decision maker: Irene Cummings, spouse. Code status: Full code. Smoking packs per day: 0 Smoking cigarettes per day: 0.0 Smoking status: Never smoker Alcohol intake: current Drinks per week: 1 Substance use: never Substance use type: does not use Last use: 1 yr ago Lack of Transportation: No Lack of Food: Never True Current Housing: I Have Housing Concerned About Future Housing: No Difficulty Paying Gas/Electric Bills: No Difficulty Paying for Meds: YES Currently Unemployed: YES Education: High School Diploma/GED Difficulty w/ Childcare or Family Care: No Living arrangements: with family Additional living arrangements comments: The patient is and lives with his and children in [place]. Additional occupation/education comments: Not currently working. Spiritual care concerns: No Exam 2 Narrative: GENERAL APPEARANCE: WELL-DEVELOPED, WELL-NOURISHED SKIN: NORMAL COLOR HEAD: NORMOCEPHALIC, NONTRAUMATIC EYES: CLEAR CONJUNCTIVA ENT: OROPHARYNX NORMAL, EARS NORMAL, NOSE NORMAL NECK: SUPPLE, NONTENDER CHEST AND RESPIRATORY: AIRWAY PATENT, NO RESPIRATORY DISTRESS, NO ACCESSORY MUSCLE USE HEART: REGULAR RATE/RHYTHM ABDOMEN: SOFT, NONTENDER, NO ORGANOMEGALY, QUIET BOWEL SOUNDS VASCULAR: NORMAL PERIPHERAL PULSES, NORMAL CAPILLARY REFILL. MUSCULOSKELETAL: NORMAL RANGE OF MOTION, NONTENDER BACK NEUROLOGIC: ALERT AND ORIENTED ?3, CROWN ASSEMBLY MACHINE OPERATOR IS NORMAL TESTED, NO GROSS MOTOR DEFICIT Course Vital Signs Vital signs: Vital Signs Temperature 36.7 C 03/07/24 07:01 Pulse Rate 97 03/07/24 07:01 Respiratory Rate 21 H 03/07/24 07:01 Blood Pressure 110/82 03/07/24 07:01 Pulse Oximetry 97 03/07/24 07:01 Temperature 36.7 C 03/07/24 11:40 Pulse Rate 84 03/07/24 11:40 Respiratory Rate 18 03/07/24 11:40 Blood Pressure 125/80 03/07/24 11:40 Pulse Oximetry 100 03/07/24 11:40 Oxygen Delivery Room Air 03/07/24 07:06 MDM - Recheck/Abnormal Lab/Rx MDM Narrative Medical decision making narrative: PATIENT CAME TO THE ED WITH UNCONTROLLED HYPERGLYCEMIA. VITAL SIGNS ARE STABLE PHYSICAL EXAMINATION IS INSIGNIFICANT DIFFERENTIAL DIAGNOSIS INCLUDE PNEUMONIA, URINARY TRACT INFECTION, ELECTROLYTE IMBALANCE, DEHYDRATION, NONCOMPLIANCE WITH DIABETES MEDICINE BLOOD WORKUP TODAY INCLUDES CBC CMP, TROPONIN SHOWED GLUCOSE 363, ALKALINE PHOSPHATASE 248, NEGATIVE TROPONIN X2 CHEST X-RAY SHOWED NO ACUTE ABNORMALITIES URINALYSIS SHOWED 3+ GLUCOSE OTHERWISE NO EVIDENCE OF INFECTION PATIENT TESTED NEGATIVE FOR COVID, FLU AND RSV EKG ON ARRIVAL SHOWED NORMAL SINUS RHYTHM AT 86 BEATS PER MINUTE, RIGHT AXIS DEVIATION, COMPARED TO EKG ON AUGUST 11, 2023 ST DEVIATION NO LONGER PRESENT Differential Diagnosis Differential diagnosis: Likely other ( ABOVE) Medical Records Attestation: I reviewed the patient's medical records. Lab Data Attestation: I reviewed the patient's lab results. 03/07/24 06:58 03/07/24 06:58 Labs: Lab Results 03/07/24 03/07/24 03/07/24 Range/Units 06:35 06:58 11:40 WBC 5.5 (4.5-10.0) K/mm3 RBC 5.29 (4.6-6.20) M/mm3 Hgb 16.6 (14.0-18.0) g/dL Hct 46.7 (42.0-52.0) % MCV 88.3 (80-100) fl MCH 31.4 (26-34) pg MCHC 35.5 (32-36) g/dl RDW 12.2 (11.5-14.5) % Plt Count 230 (150-375) k/mm3 MPV 10.4 (7.4-10.4) fl Immature Gran % (Auto) 0.4 (0-0.5) % Neut % (Auto) 61.1 (45.5-73.1) % Lymph % (Auto) 30.0 (18.3-44.2) % [place] % (Auto) 7.0 (2.6-8.5) % Eos % (Auto) 1.1 (0-4.4) % Baso % (Auto) 0.4 (0.2-1.2) % Lymph # (Auto) 1.64 (0.9-3.2) K/mm3 [place] # (Auto) 0.4 (0.1-0.6) K/mm3 Eos # (Auto) 0.1 (0-0.3) K/mm3 Baso # (Auto) 0.0 (0.0-0.1) K/mm3 Abs Immat Gran (auto) 0.02 (0.00-0.031) K/mm3 Absolute Neuts (auto) 3.3 (1.3-6.7) K/mm3 Absolute Nucleated RBC 0.000 (0.0-0.012) K/mm3 Nucleated RBC % 0.0 (0.0-0.2) % Sodium 138 (137-145) mmol/L Potassium 4.5 (3.4-5.0) mmol/L Chloride 103 (98-107) mmol/L Carbon Dioxide 18 L (22-30) mmol/L Anion Gap 17 H (4-12) mmol/L BUN 16 (9-20) mg/dL Creatinine 0.60 L (0.7-1.3) mg/dL Estim Creat Clear Calc Not Reportable Estimated GFR > 60 (59 - ) Glucose 363 H (65-110) mg/dL POC Capillary Glucose 342 H (65-105) mg/dl Calcium 9.1 (8.4-10.2) mg/dL Total Bilirubin 0.6 (0.2-1.3) mg/dL AST 27 (17-59) U/L ALT 28 (6-50) U/L Alkaline Phosphatase 248 H (38-126) U/L Troponin I < 0.012 < 0.012 (0.000-0.034) ng/mL Total Protein 8.0 (6.3-8.2) g/dL Albumin 4.8 (3.5-5.1) g/dL Urine Color Yellow (Yellow) Urine Appearance Clear (Clear) Urine pH 5.0 (5.0-9.0) Ur Specific [place] 1.038 H (1.001-1.035) Urine Protein Negative (Negative) mg/dL Urine Glucose (UA) 3+ H (Negative) mg/dL Urine Ketones Trace H (Negative) mg/dL Ur Blood (Man) Negative (Negative) Urine Nitrate Negative (Negative) Urine Bilirubin Negative (Negative) Urine Urobilinogen 0.2 (<2.0) mg/dL Leukocyte Esterase Rfl Negative (Negative) SANDRA/UL Ethyl Alcohol 30 (<10) mg/dL Influenza A (RT-PCR) Negative (Negative) Influenza B (RT-PCR) Negative (Negative) RSV (RT-PCR) Negative (Negative) SARS-CoV-2 RNA (RT-PCR) Negative (Negative) 03/07/24 Range/Units 12:00 WBC (4.5-10.0) K/mm3 RBC (4.6-6.20) M/mm3 Hgb (14.0-18.0) g/dL Hct (42.0-52.0) % MCV (80-100) fl MCH (26-34) pg MCHC (32-36) g/dl RDW (11.5-14.5) % Plt Count (150-375) k/mm3 MPV (7.4-10.4) fl Immature Gran % (Auto) (0-0.5) % Neut % (Auto) (45.5-73.1) % Lymph % (Auto) (18.3-44.2) % [place] % (Auto) (2.6-8.5) % Eos % (Auto) (0-4.4) % Baso % (Auto) (0.2-1.2) % Lymph # (Auto) (0.9-3.2) K/mm3 [place] # (Auto) (0.1-0.6) K/mm3 Eos # (Auto) (0-0.3) K/mm3 Baso # (Auto) (0.0-0.1) K/mm3 Abs Immat Gran (auto) (0.00-0.031) K/mm3 Absolute Neuts (auto) (1.3-6.7) K/mm3 Absolute Nucleated RBC (0.0-0.012) K/mm3 Nucleated RBC % (0.0-0.2) % Sodium (137-145) mmol/L Potassium (3.4-5.0) mmol/L Chloride (98-107) mmol/L Carbon Dioxide (22-30) mmol/L Anion Gap (4-12) mmol/L BUN (9-20) mg/dL Creatinine (0.7-1.3) mg/dL Estim Creat Clear Calc Estimated GFR (59 - ) Glucose (65-110) mg/dL POC Capillary Glucose 202 H (65-105) mg/dl Calcium (8.4-10.2) mg/dL Total Bilirubin (0.2-1.3) mg/dL AST (17-59) U/L ALT (6-50) U/L Alkaline Phosphatase (38-126) U/L Troponin I (0.000-0.034) ng/mL Total Protein (6.3-8.2) g/dL Albumin (3.5-5.1) g/dL Urine Color (Yellow) Urine Appearance (Clear) Urine pH (5.0-9.0) Ur Specific [place] (1.001-1.035) Urine Protein (Negative) mg/dL Urine Glucose (UA) (Negative) mg/dL Urine Ketones (Negative) mg/dL Ur Blood (Man) (Negative) Urine Nitrate (Negative) Urine Bilirubin (Negative) Urine Urobilinogen (<2.0) mg/dL Leukocyte Esterase Rfl (Negative) SANDRA/UL Ethyl Alcohol (<10) mg/dL Influenza A (RT-PCR) (Negative) Influenza B (RT-PCR) (Negative) RSV (RT-PCR) (Negative) SARS-CoV-2 RNA (RT-PCR) (Negative) ABG Data ABG results: 03/07/24 10:25 VBG pH 7.372 VBG pCO2 36.3 L VBG pO2 81.7 H VBG HCO3 20.6 L O2 Delivery Device Room air O2 Liters/Min Not Reportable FiO2 21 ECG Data EKG #1: Attestation: I personally reviewed and interpreted this ECG as follows: ECG completion date: 03/07/24 Interpretation: NORMAL SINUS RHYTHM AT 86 BEATS PER MINUTE, RIGHT AXIS DEVIATION, COMPARED TO EKG ON AUGUST 11, 2023 NO ACUTE ABNORMALITIES Critical Care Time Critical Care Time Critical Care Time: Yes Total Critical Care Time: 30 Discharge Plan Discharge Clinical Impression: Diabetes mellitus with hyperglycemia Patient Disposition: Home, Self-Care Condition: Improved Instructions: Diabetic Hyperglycemia (ED) Additional Instructions: RETURN IF SYMPTOMS ARE WORSENING , CALL YOUR FAMILY PHYSICIAN FOR APPOINTMEN 20 ARE JUST YOUR DIABETES MEDICINE, TAKE TYLENOL NEEDED FOR ACHES AND PAIN, INCREASE METFORMIN TO 1 AND HALF TABLET TWICE A DAY. Patient Language: Thai Prescriptions: No Action simvastatin 20 mg tablet 20 mg PO DAILY insulin glargine [Lantus Solostar U-100 Insulin] 100 unit/mL (3 mL) insulin pen 10 unit subcut QAM Invokana 300 mg tablet 300 mg PO DAILY metformin 500 mg Tablet 500 mg PO BID 30 Days Qty: 60 0RF (DME) blood-glucose meter [[employer] Verio Flex meter] [facility] [place] Qty: 1 0RF Rx Instructions: May substitute to in-stock meter and/or covered by insurance. QAM (DME) lancets [OneTouch Delica Plus Lancet] 30 gauge mis Qty: 1 0RF Rx Instructions: May substitute to in-stock and/or covered by insurance lancets. QAM. Use As Directed Follow-up/Referrals: Edda,MUKUND Jauregui [Primary Care Provider] -
[2024-03-07] MEDS: SODIUM CHLORIDE 0.9% IV 1,000 ML 999 ML IV CONT ×2 (07:28)
[2024-03-07 07:42] LABS: Ethanol 30 mg/dL (<10)
[2024-03-07 07:50] LABS: Alanine Aminotransferase 28 U/L (6-50); Albumin Level 4.8 g/dL (3.5-5.1); Alkaline Phosphatase 248 U/L (38-126); Anion Gap 17 mmol/L (4-12); Aspartate Amino Transferase 27 U/L (17-59); Bilirubin,Total 0.6 mg/dL (0.2-1.3); Blood Urea Nitrogen 16 mg/dL (9-20); Calcium 9.1 mg/dL (8.4-10.2); Carbon Dioxide 18 mmol/L (22-30); Chloride 103 mmol/L (98-107); Estimated Glomerular Filt Rate > 60; Glucose 363 mg/dL (65-110); Potassium 4.5 mmol/L (3.4-5.0); Sodium 138 mmol/L (137-145)
--- NOTE | 2024-03-07 08:07 | PC.NURSE ---
0730: Assumed care of pt. Pt assessed per pest management supervisor. Assessment unchanged. Dr. Contreras at bedside to assess pt
[2024-03-07 09:40] LABS: Troponin I < 0.012 ng/mL (0.000-0.034)
--- NOTE | 2024-03-07 10:02 | PC.NURSE ---
Pt asleep with reg resp.
[2024-03-07 10:28] LABS: Fractional Inspired Oxygen 21 %; HCO3 VBG 20.6 mEq/l (24.0-30.0); PCO2 VBG 36.3 mmHg (42.0-48.0); PO2 VBG 81.7 mmHg (35.0-45.0); pH VBG 7.372 (7.300-7.400)
[2024-03-07 10:30] LABS: Device ROOM AIR
--- NOTE | 2024-03-07 11:34 | ECG_ITS ---
Test Date: 2024-03-07 11:44:00 Measurements Intervals [place] Rate: 76 P: 122 DC: 153 QRS: 24 QRSD: 84 T: 34 QT: 334 QTc: 377 Interpretive Statements SINUS RHYTHM LOW QRS VOLTAGE IN EXTREMITY LEADS [QRS DEFLECTION < 0.5 mV IN LIMB LEADS] Compared to ECG 03/07/2024 06:54:46 Low QRS voltage now present Electronically Signed On 03-07-2024 15:28:47 NIGHT NURSE by Kavya Griffith M.D.
--- NOTE | 2024-03-07 11:37 | PC.NURSE ---
RN spoke with Dr. Contreras concerning pt c/o of flu symptoms. Order received for COVID/Flu/RSV swab
[2024-03-07 12:02] LABS: Glucose Point of Care 202 mg/dl (65-105)
[2024-03-07 12:10] LABS: Troponin I < 0.012 ng/mL (0.000-0.034)
[2024-03-07 12:25] LABS: Influenza A QL RT-PCR Negative (Negative); Influenza B QL RT-PCR Negative (Negative); RSV RNA, RT-PCR Negative (Negative); SARS-CoV-2 RNA PCR Negative (Negative)
== END 2024-03-07 13:19 | disposition home or self-care (01) ==
PROVIDERS: Emergency Medicine; Emergency Provider Emergency Medicine; PCP Physician Assistant
DX: E11.65 Type 2 diabetes mellitus with hyperglycemia (principal); Z79.4 Long term (current) use of insulin; F32.A Depression, unspecified; F41.9 Anxiety disorder, unspecified; E78.5 Hyperlipidemia, unspecified
CPT/HCPCS: 36415; 80053; 81003; 82077; 82803; 82948; 84484; 85025; 87637; 93005; 96360; 99284; J7030

== ENCOUNTER 2024-08-20 16:09 | Observation (INO) | payer SELFPAY ==
[2024-08-20] VITALS (10 sets, daily range): BP systolic 101–116; BP diastolic 78–91; PULSE 71–87; RESP 16–22; TEMP 36.6–36.8; O2SAT 93–99; BMI 28.4
--- NOTE | ~2024-08-20 | XR_ITS ---
Portable chest x-ray Comparison: 08/11/2023 Clinical History: Shortness of breath Findings: Low lung lines are present. No consolidation or pleural effusion. Cardiomediastinal silho uette is stable. Bones and soft tissues are unremarkable. Impression: Clear lungs. Low lung volumes. Reviewed, dictated and finalized at location . Impression: Clear lungs. Low lung volumes.
--- NOTE | 2024-08-20 16:35 | ECG_ITS ---
Test Date: 2024-08-20 16:54:50 Measurements Intervals [place] Rate: 85 P: 15 WV: 151 QRS: 10 QRSD: 94 T: 20 QT: 330 QTc: 393 Interpretive Statements SINUS RHYTHM BORDERLINE R WAVE PROGRESSION, ANTERIOR LEADS ST ELEVATION IN DIFFUSE LEADS, PROBABLY EARLY REPOLARIZATION BASELINE ARTIFACT- I, II, AVR BORDERLINE ECG Compared to ECG 03/07/2024 11:44:00 EARLY REPOLARIZATION NOW PRESENT Electronically Signed On 08-20-2024 19:52:18 CDT by Derek Urias D.O.
--- NOTE | 2024-08-20 16:36 | ED.RECABL ---
HPI - Recheck/Abnormal Lab/Rx General Chief Complaint: Recheck/Abnormal Lab/Rx Stated Complaint: high blood sugar, upper epigastric pain, nausea Time Seen by Provider: 08/20/24 16:16 History of Present Illness HPI narrative: 44-year-old male with a past medical history including diabetes type 2, hyperlipidemia. Patient presents to the emergency department with epigastric abdominal pain and some nauseousness as well as high blood sugar readings. Symptoms going on intermittently for last 2 weeks. No associated shortness of breath, abdominal pain, back pain, fever, chills. He states he is only on metformin to control his diabetes as he ran out of his SGLT 2 inhibitor several months ago and was previously on insulin the past but no longer insulin dependent. No trauma or injury, no recent illnesses. He was otherwise in his normal state of health. Has not tried any symptom controlling medications at home. Related Data Home Medications ?Medication ?Instructions ?Recorded ?Confirmed ?Last Taken ?Type canagliflozin 300 mg tablet 300 mg PO DAILY 09/23/23 08/20/24 10/11/23 History (Invokana) insulin glargine 100 unit/mL (3 10 unit subcut QAM 09/23/23 08/20/24 10/11/23 History mL) subcutaneous pen (Lantus Solostar U-100 Insulin) simvastatin 20 mg tablet 20 mg PO DAILY 09/23/23 08/20/24 10/11/23 History metformin 500 mg tablet 1,000 mg PO BID 08/20/24 08/20/24 08/19/24 History Allergies Allergy/AdvReac Type Severity Reaction Status Date / Time No Known Allergies Allergy Verified 08/20/24 16:41 Review of Systems Review of Systems: As reviewed above in HPI [facility] Past Medical History Medical History 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 Code status: Full code. Smoking packs per day: 0 Smoking cigarettes per day: 0.0 Smoking status: Never smoker Alcohol intake: never Drinks per week: 1 Substance use: never Substance use type: does not use Last use: 1 yr ago Do You Feel Safe in your Home?: Yes Lack of Transportation: No Lack of Food: Never True Current Housing: I Have Housing Concerned About Future Housing: No Difficulty Paying Gas/Electric Bills: No Difficulty Paying for Meds: YES Currently Unemployed: No Education: Grade School Difficulty w/ Childcare or Family Care: No Living arrangements: with family Additional living arrangements comments: The patient is and lives with his and children in [place]. Additional occupation/education comments: Not currently working. Spiritual care concerns: No Exam Narrative: GENERAL: [Well-appearing, well-nourished, and in no acute distress.] HEAD: [Normocephalic, atraumatic.] EYES: [PERRLA and EOMI.] ENT: Nares clear, no rhinorrhea or epistaxis. Mucous membranes dry. NECK: Supple. CHEST: [Clear to auscultation. No respiratory distress.] Reproducible tenderness to palpation over the sternum/xiphoid process but no overlying skin changes. HEART: [Regular rate and rhythm]. No murmur heard. [Normal peripheral pulses.] ABDOMEN: [Soft, nondistended], [nontender], [No rigidity or guarding] EXTREMITIES: Normal range of motion. [No edema.] SKIN: Warm, dry, no rash. NEURO: [No focal deficits]. Alert and oriented [x3.] PSYCH: [Normal mood and affect.] Course Vital Signs Vital signs: Vital Signs Temperature 36.6 C 08/20/24 16:35 Pulse Rate 86 08/20/24 16:35 Respiratory Rate 20 08/20/24 16:35 Blood Pressure 114/88 08/20/24 16:35 Pulse Oximetry 96 08/20/24 16:35 Oxygen Delivery Room Air 08/20/24 16:35 Temperature 36.6 C 08/21/24 18:03 Pulse Rate 97 08/21/24 20:27 Respiratory Rate 20 08/21/24 20:27 Blood Pressure 107/75 08/21/24 16:00 Pulse Oximetry 99 08/21/24 20:27 Oxygen Delivery Room Air 08/21/24 20:27 Fraction of Inspired Oxygen 21 08/21/24 20:27 MDM - Recheck/Abnormal Lab/Rx MDM Narrative Medical decision making narrative: 44-year-old male with history of type 2 diabetes, hyperlipidemia presenting to the emergency room with epigastric abdominal discomfort for last several weeks associated some nausea and some mildly elevated blood sugar readings at home. He is currently on metformin only as he ran out of his Invokana several months ago and previously was using insulin but not currently. Pain appears reproducible on examination at bedside with no associated shortness of breath, vomiting, abdominal pain, back pain. No fever chills with normal vital signs here. Blood sugars on the elevated side 290 but not severe range. Epigastric abdominal discomfort could be a potential gastritis, gastroenteritis, GERD, low suspicion ACS but he has risk factors including diabetes. DKA verses nonketotic hyperglycemia versus HHS also possible given his elevated blood sugar readings and dry mucous membranes. VBG, beta hydroxybutyrate, CBC, CMP, lipase, troponin, EKG and chest x-ray was obtained. He was given 2 L of fluid resuscitation and placed on property assessment monitor and re-evaluated. Workup shows no leukocytosis or anemia. Normal platelet count. Blood gas shows anion gap metabolic acidosis consistent with diabetic ketoacidosis. Bicarb of 11.5, pCO2 of 24.6, pH 7.28. Chemistry panel shows an elevated anion gap acidosis, potassium 3.8. Glucose mildly elevated in the 2-300 range. A1c elevated at 13. Patient started on additional fluid resuscitation, potassium supplements both by mouth and there is IV fluids ordered. Started on insulin infusion for diabetic ketoacidosis and we discussed the case with the ICU doctor under Dr. Jacinto who accepted him to the ICU at this time. Discussed the case with the hospitalist service who also agreed for admission at this time. Patient transferred to the ICU without further issue. Medical Records Attestation: I reviewed the patient's medical records. Lab Data Attestation: I reviewed the patient's lab results. 08/21/24 04:32 08/21/24 13:37 Labs: Lab Results 08/20/24 08/20/24 08/20/24 Range/Units 16:17 16:34 16:44 WBC 5.2 (4.5-10.0) K/mm3 RBC 4.78 (4.6-6.20) M/mm3 Hgb 14.3 (14.0-18.0) g/dL Hct 40.8 L (42.0-52.0) % MCV 85.4 (80-100) fl MCH 29.9 (26-34) pg MCHC 35.0 (32-36) g/dl RDW 12.5 (11.5-14.5) % Plt Count 171 (150-375) k/mm3 MPV 10.4 (7.4-10.4) fl Immature Gran % (Auto) 0.2 (0-0.5) % Neut % (Auto) 67.8 (45.5-73.1) % Lymph % (Auto) 24.1 (18.3-44.2) % [place] % (Auto) 7.5 (2.6-8.5) % Eos % (Auto) 0.2 (0-4.4) % Baso % (Auto) 0.2 (0.2-1.2) % Lymph # (Auto) 1.26 (0.9-3.2) K/mm3 [place] # (Auto) 0.4 (0.1-0.6) K/mm3 Eos # (Auto) 0.0 (0-0.3) K/mm3 Baso # (Auto) 0.0 (0.0-0.1) K/mm3 Abs Immat Gran (auto) 0.01 (0.00-0.031) K/mm3 Absolute Neuts (auto) 3.6 (1.3-6.7) K/mm3 Absolute Nucleated RBC 0.000 (0.0-0.012) K/mm3 Nucleated RBC % 0.0 (0.0-0.2) % Sodium Cancelled Potassium Chloride Carbon Dioxide Anion Gap BUN Creatinine Estim Creat Clear Calc Estimated GFR Glucose POC Capillary Glucose 290 H 304 H (65-105) mg/dl Hemoglobin A1c (<5.7) % Calcium Phosphorus Magnesium Total Bilirubin AST ALT Alkaline Phosphatase Troponin I (0.000-0.034) ng/mL Total Protein Albumin Beta-Hydroxybutyrate/Acetoacetate (0.02-0.27) mmol/L Urine Color (Yellow) Urine Appearance (Clear) Urine pH (5.0-9.0) Ur Specific [place] (1.001-1.035) Urine Protein (Negative) mg/dL Urine Glucose (UA) (Negative) mg/dL Urine Ketones (Negative) mg/dL Ur Blood (Man) (Negative) Urine Nitrate (Negative) Urine Bilirubin (Negative) Urine Urobilinogen (<2.0) mg/dL Add Ur Microanalysis Leukocyte Esterase Rfl (Negative) SANDRA/UL Urine RBC (0-2) /hpf Urine WBC (0-3) /hpf Ur Squamous Epith Cells (Few) /hpf Urine Bacteria /hpf Urine Casts 08/20/24 08/20/24 08/20/24 Range/Units 16:44 16:44 16:44 WBC (4.5-10.0) K/mm3 RBC (4.6-6.20) M/mm3 Hgb (14.0-18.0) g/dL Hct (42.0-52.0) % MCV (80-100) fl MCH (26-34) pg MCHC (32-36) g/dl RDW (11.5-14.5) % Plt Count (150-375) k/mm3 MPV (7.4-10.4) fl Immature Gran % (Auto) (0-0.5) % Neut % (Auto) (45.5-73.1) % Lymph % (Auto) (18.3-44.2) % [place] % (Auto) (2.6-8.5) % Eos % (Auto) (0-4.4) % Baso % (Auto) (0.2-1.2) % Lymph # (Auto) (0.9-3.2) K/mm3 [place] # (Auto) (0.1-0.6) K/mm3 Eos # (Auto) (0-0.3) K/mm3 Baso # (Auto) (0.0-0.1) K/mm3 Abs Immat Gran (auto) (0.00-0.031) K/mm3 Absolute Neuts (auto) (1.3-6.7) K/mm3 Absolute Nucleated RBC (0.0-0.012) K/mm3 Nucleated RBC % (0.0-0.2) % Sodium 134 L Potassium Cancelled 3.8 Chloride Cancelled 102 Carbon Dioxide Cancelled Anion Gap BUN Creatinine Estim Creat Clear Calc Estimated GFR Glucose POC Capillary Glucose (65-105) mg/dl Hemoglobin A1c (<5.7) % Calcium Phosphorus Magnesium Total Bilirubin AST ALT Alkaline Phosphatase Troponin I (0.000-0.034) ng/mL Total Protein Albumin Beta-Hydroxybutyrate/Acetoacetate (0.02-0.27) mmol/L Urine Color (Yellow) Urine Appearance (Clear) Urine pH (5.0-9.0) Ur Specific [place] (1.001-1.035) Urine Protein (Negative) mg/dL Urine Glucose (UA) (Negative) mg/dL Urine Ketones (Negative) mg/dL Ur Blood (Man) (Negative) Urine Nitrate (Negative) Urine Bilirubin (Negative) Urine Urobilinogen (<2.0) mg/dL Add Ur Microanalysis Leukocyte Esterase Rfl (Negative) SANDRA/UL Urine RBC (0-2) /hpf Urine WBC (0-3) /hpf Ur Squamous Epith Cells (Few) /hpf Urine Bacteria /hpf Urine Casts 08/20/24 08/20/24 08/20/24 Range/Units 16:44 16:44 16:44 WBC (4.5-10.0) K/mm3 RBC (4.6-6.20) M/mm3 Hgb (14.0-18.0) g/dL Hct (42.0-52.0) % MCV (80-100) fl MCH (26-34) pg MCHC (32-36) g/dl RDW (11.5-14.5) % Plt Count (150-375) k/mm3 MPV (7.4-10.4) fl Immature Gran % (Auto) (0-0.5) % Neut % (Auto) (45.5-73.1) % Lymph % (Auto) (18.3-44.2) % [place] % (Auto) (2.6-8.5) % Eos % (Auto) (0-4.4) % Baso % (Auto) (0.2-1.2) % Lymph # (Auto) (0.9-3.2) K/mm3 [place] # (Auto) (0.1-0.6) K/mm3 Eos # (Auto) (0-0.3) K/mm3 Baso # (Auto) (0.0-0.1) K/mm3 Abs Immat Gran (auto) (0.00-0.031) K/mm3 Absolute Neuts (auto) (1.3-6.7) K/mm3 Absolute Nucleated RBC (0.0-0.012) K/mm3 Nucleated RBC % (0.0-0.2) % Sodium Potassium Chloride Carbon Dioxide 9 L Anion Gap Cancelled 23 H BUN Cancelled 8 L D Creatinine Cancelled Estim Creat Clear Calc Estimated GFR Glucose POC Capillary Glucose (65-105) mg/dl Hemoglobin A1c (<5.7) % Calcium Phosphorus Magnesium Total Bilirubin AST ALT Alkaline Phosphatase Troponin I (0.000-0.034) ng/mL Total Protein Albumin Beta-Hydroxybutyrate/Acetoacetate (0.02-0.27) mmol/L Urine Color (Yellow) Urine Appearance (Clear) Urine pH (5.0-9.0) Ur Specific [place] (1.001-1.035) Urine Protein (Negative) mg/dL Urine Glucose (UA) (Negative) mg/dL Urine Ketones (Negative) mg/dL Ur Blood (Man) (Negative) Urine Nitrate (Negative) Urine Bilirubin (Negative) Urine Urobilinogen (<2.0) mg/dL Add Ur Microanalysis Leukocyte Esterase Rfl (Negative) SANDRA/UL Urine RBC (0-2) /hpf Urine WBC (0-3) /hpf Ur Squamous Epith Cells (Few) /hpf Urine Bacteria /hpf Urine Casts 08/20/24 08/20/24 08/20/24 Range/Units 16:44 16:44 16:44 WBC (4.5-10.0) K/mm3 RBC (4.6-6.20) M/mm3 Hgb (14.0-18.0) g/dL Hct (42.0-52.0) % MCV (80-100) fl MCH (26-34) pg MCHC (32-36) g/dl RDW (11.5-14.5) % Plt Count (150-375) k/mm3 MPV (7.4-10.4) fl Immature Gran % (Auto) (0-0.5) % Neut % (Auto) (45.5-73.1) % Lymph % (Auto) (18.3-44.2) % [place] % (Auto) (2.6-8.5) % Eos % (Auto) (0-4.4) % Baso % (Auto) (0.2-1.2) % Lymph # (Auto) (0.9-3.2) K/mm3 [place] # (Auto) (0.1-0.6) K/mm3 Eos # (Auto) (0-0.3) K/mm3 Baso # (Auto) (0.0-0.1) K/mm3 Abs Immat Gran (auto) (0.00-0.031) K/mm3 Absolute Neuts (auto) (1.3-6.7) K/mm3 Absolute Nucleated RBC (0.0-0.012) K/mm3 Nucleated RBC % (0.0-0.2) % Sodium Potassium Chloride Carbon Dioxide Anion Gap BUN Creatinine 0.62 L Estim Creat Clear Calc Cancelled Not Reportable Estimated GFR Cancelled > 60 Glucose Cancelled POC Capillary Glucose (65-105) mg/dl Hemoglobin A1c (<5.7) % Calcium Phosphorus Magnesium Total Bilirubin AST ALT Alkaline Phosphatase Troponin I (0.000-0.034) ng/mL Total Protein Albumin Beta-Hydroxybutyrate/Acetoacetate (0.02-0.27) mmol/L Urine Color (Yellow) Urine Appearance (Clear) Urine pH (5.0-9.0) Ur Specific [place] (1.001-1.035) Urine Protein (Negative) mg/dL Urine Glucose (UA) (Negative) mg/dL Urine Ketones (Negative) mg/dL Ur Blood (Man) (Negative) Urine Nitrate (Negative) Urine Bilirubin (Negative) Urine Urobilinogen (<2.0) mg/dL Add Ur Microanalysis Leukocyte Esterase Rfl (Negative) SANDRA/UL Urine RBC (0-2) /hpf Urine WBC (0-3) /hpf Ur Squamous Epith Cells (Few) /hpf Urine Bacteria /hpf Urine Casts 08/20/24 08/20/24 08/20/24 Range/Units 16:44 16:44 16:44 WBC (4.5-10.0) K/mm3 RBC (4.6-6.20) M/mm3 Hgb (14.0-18.0) g/dL Hct (42.0-52.0) % MCV (80-100) fl MCH (26-34) pg MCHC (32-36) g/dl RDW (11.5-14.5) % Plt Count (150-375) k/mm3 MPV (7.4-10.4) fl Immature Gran % (Auto) (0-0.5) % Neut % (Auto) (45.5-73.1) % Lymph % (Auto) (18.3-44.2) % [place] % (Auto) (2.6-8.5) % Eos % (Auto) (0-4.4) % Baso % (Auto) (0.2-1.2) % Lymph # (Auto) (0.9-3.2) K/mm3 [place] # (Auto) (0.1-0.6) K/mm3 Eos # (Auto) (0-0.3) K/mm3 Baso # (Auto) (0.0-0.1) K/mm3 Abs Immat Gran (auto) (0.00-0.031) K/mm3 Absolute Neuts (auto) (1.3-6.7) K/mm3 Absolute Nucleated RBC (0.0-0.012) K/mm3 Nucleated RBC % (0.0-0.2) % Sodium Potassium Chloride Carbon Dioxide Anion Gap BUN Creatinine Estim Creat Clear Calc Estimated GFR Glucose 291 H POC Capillary Glucose (65-105) mg/dl Hemoglobin A1c 13.4 H (<5.7) % Calcium Cancelled 9.0 Phosphorus Cancelled 2.9 Magnesium Cancelled Total Bilirubin AST ALT Alkaline Phosphatase Troponin I (0.000-0.034) ng/mL Total Protein Albumin Beta-Hydroxybutyrate/Acetoacetate (0.02-0.27) mmol/L Urine Color (Yellow) Urine Appearance (Clear) Urine pH (5.0-9.0) Ur Specific [place] (1.001-1.035) Urine Protein (Negative) mg/dL Urine Glucose (UA) (Negative) mg/dL Urine Ketones (Negative) mg/dL Ur Blood (Man) (Negative) Urine Nitrate (Negative) Urine Bilirubin (Negative) Urine Urobilinogen (<2.0) mg/dL Add Ur Microanalysis Leukocyte Esterase Rfl (Negative) SANDRA/UL Urine RBC (0-2) /hpf Urine WBC (0-3) /hpf Ur Squamous Epith Cells (Few) /hpf Urine Bacteria /hpf Urine Casts 08/20/24 08/20/24 08/20/24 Range/Units 16:44 16:44 16:44 WBC (4.5-10.0) K/mm3 RBC (4.6-6.20) M/mm3 Hgb (14.0-18.0) g/dL Hct (42.0-52.0) % MCV (80-100) fl MCH (26-34) pg MCHC (32-36) g/dl RDW (11.5-14.5) % Plt Count (150-375) k/mm3 MPV (7.4-10.4) fl Immature Gran % (Auto) (0-0.5) % Neut % (Auto) (45.5-73.1) % Lymph % (Auto) (18.3-44.2) % [place] % (Auto) (2.6-8.5) % Eos % (Auto) (0-4.4) % Baso % (Auto) (0.2-1.2) % Lymph # (Auto) (0.9-3.2) K/mm3 [place] # (Auto) (0.1-0.6) K/mm3 Eos # (Auto) (0-0.3) K/mm3 Baso # (Auto) (0.0-0.1) K/mm3 Abs Immat Gran (auto) (0.00-0.031) K/mm3 Absolute Neuts (auto) (1.3-6.7) K/mm3 Absolute Nucleated RBC (0.0-0.012) K/mm3 Nucleated RBC % (0.0-0.2) % Sodium Potassium Chloride Carbon Dioxide Anion Gap BUN Creatinine Estim Creat Clear Calc Estimated GFR Glucose POC Capillary Glucose (65-105) mg/dl Hemoglobin A1c (<5.7) % Calcium Phosphorus Magnesium 1.9 Total Bilirubin Cancelled 0.9 AST Cancelled 26 ALT Cancelled Alkaline Phosphatase Troponin I (0.000-0.034) ng/mL Total Protein Albumin Beta-Hydroxybutyrate/Acetoacetate (0.02-0.27) mmol/L Urine Color (Yellow) Urine Appearance (Clear) Urine pH (5.0-9.0) Ur Specific [place] (1.001-1.035) Urine Protein (Negative) mg/dL Urine Glucose (UA) (Negative) mg/dL Urine Ketones (Negative) mg/dL Ur Blood (Man) (Negative) Urine Nitrate (Negative) Urine Bilirubin (Negative) Urine Urobilinogen (<2.0) mg/dL Add Ur Microanalysis Leukocyte Esterase Rfl (Negative) SANDRA/UL Urine RBC (0-2) /hpf Urine WBC (0-3) /hpf Ur Squamous Epith Cells (Few) /hpf Urine Bacteria /hpf Urine Casts 08/20/24 08/20/24 08/20/24 Range/Units 16:44 16:44 16:44 WBC (4.5-10.0) K/mm3 RBC (4.6-6.20) M/mm3 Hgb (14.0-18.0) g/dL Hct (42.0-52.0) % MCV (80-100) fl MCH (26-34) pg MCHC (32-36) g/dl RDW (11.5-14.5) % Plt Count (150-375) k/mm3 MPV (7.4-10.4) fl Immature Gran % (Auto) (0-0.5) % Neut % (Auto) (45.5-73.1) % Lymph % (Auto) (18.3-44.2) % [place] % (Auto) (2.6-8.5) % Eos % (Auto) (0-4.4) % Baso % (Auto) (0.2-1.2) % Lymph # (Auto) (0.9-3.2) K/mm3 [place] # (Auto) (0.1-0.6) K/mm3 Eos # (Auto) (0-0.3) K/mm3 Baso # (Auto) (0.0-0.1) K/mm3 Abs Immat Gran (auto) (0.00-0.031) K/mm3 Absolute Neuts (auto) (1.3-6.7) K/mm3 Absolute Nucleated RBC (0.0-0.012) K/mm3 Nucleated RBC % (0.0-0.2) % Sodium Potassium Chloride Carbon Dioxide Anion Gap BUN Creatinine Estim Creat Clear Calc Estimated GFR Glucose POC Capillary Glucose (65-105) mg/dl Hemoglobin A1c (<5.7) % Calcium Phosphorus Magnesium Total Bilirubin AST ALT 22 Alkaline Phosphatase Cancelled 135 H Troponin I < 0.012 (0.000-0.034) ng/mL Total Protein Cancelled 7.4 Albumin Cancelled Beta-Hydroxybutyrate/Acetoacetate (0.02-0.27) mmol/L Urine Color (Yellow) Urine Appearance (Clear) Urine pH (5.0-9.0) Ur Specific [place] (1.001-1.035) Urine Protein (Negative) mg/dL Urine Glucose (UA) (Negative) mg/dL Urine Ketones (Negative) mg/dL Ur Blood (Man) (Negative) Urine Nitrate (Negative) Urine Bilirubin (Negative) Urine Urobilinogen (<2.0) mg/dL Add Ur Microanalysis Leukocyte Esterase Rfl (Negative) SANDRA/UL Urine RBC (0-2) /hpf Urine WBC (0-3) /hpf Ur Squamous Epith Cells (Few) /hpf Urine Bacteria /hpf Urine Casts 08/20/24 08/20/24 Range/Units 16:44 16:53 WBC (4.5-10.0) K/mm3 RBC (4.6-6.20) M/mm3 Hgb (14.0-18.0) g/dL Hct (42.0-52.0) % MCV (80-100) fl MCH (26-34) pg MCHC (32-36) g/dl RDW (11.5-14.5) % Plt Count (150-375) k/mm3 MPV (7.4-10.4) fl Immature Gran % (Auto) (0-0.5) % Neut % (Auto) (45.5-73.1) % Lymph % (Auto) (18.3-44.2) % [place] % (Auto) (2.6-8.5) % Eos % (Auto) (0-4.4) % Baso % (Auto) (0.2-1.2) % Lymph # (Auto) (0.9-3.2) K/mm3 [place] # (Auto) (0.1-0.6) K/mm3 Eos # (Auto) (0-0.3) K/mm3 Baso # (Auto) (0.0-0.1) K/mm3 Abs Immat Gran (auto) (0.00-0.031) K/mm3 Absolute Neuts (auto) (1.3-6.7) K/mm3 Absolute Nucleated RBC (0.0-0.012) K/mm3 Nucleated RBC % (0.0-0.2) % Sodium Potassium Chloride Carbon Dioxide Anion Gap BUN Creatinine Estim Creat Clear Calc Estimated GFR Glucose POC Capillary Glucose (65-105) mg/dl Hemoglobin A1c Cancelled (<5.7) % Calcium Phosphorus Magnesium Total Bilirubin AST ALT Alkaline Phosphatase Troponin I (0.000-0.034) ng/mL Total Protein Albumin 4.6 Beta-Hydroxybutyrate/Acetoacetate 9.11 H (0.02-0.27) mmol/L Urine Color Yellow (Yellow) Urine Appearance Clear (Clear) Urine pH 5.5 (5.0-9.0) Ur Specific [place] 1.039 H (1.001-1.035) Urine Protein 1+ H (Negative) mg/dL Urine Glucose (UA) 3+ H (Negative) mg/dL Urine Ketones 4+ H (Negative) mg/dL Ur Blood (Man) Negative (Negative) Urine Nitrate Negative (Negative) Urine Bilirubin Negative (Negative) Urine Urobilinogen 0.2 (<2.0) mg/dL Add Ur Microanalysis Reviewed Leukocyte Esterase Rfl Negative (Negative) SANDRA/UL Urine RBC 0-2 (0-2) /hpf Urine WBC 0-5 (0-3) /hpf Ur Squamous Epith Cells None seen (Few) /hpf Urine Bacteria None seen /hpf Urine Casts 3-5 ABG Data ABG results: 08/20/24 16:34 VBG pH 7.286 L VBG pCO2 24.6 L* VBG pO2 60.2 H VBG HCO3 11.5 L O2 Delivery Device Room air O2 Liters/Min Not Reportable [id number] 21 Attestation: I personally reviewed and interpreted this ABG as follows: Interpretation: Metabolic acidosis, acute without appropriate compensation from renal function Critical Care Time Critical Care Time Critical Care Time: Yes Total Critical Care Time: 40 Discharge Plan Discharge Clinical Impression: Type 2 diabetes mellitus DKA (diabetic ketoacidosis) Qualifiers: Diabetes mellitus type: other specified (including DEL) Diabetes mellitus complication detail: without coma Qualified Code(s): E13.10 - Other specified diabetes mellitus with ketoacidosis without coma Patient Disposition: Still a Patient Condition: Guarded Prognosis
[2024-08-20 16:38] LABS: Fractional Inspired Oxygen 21 %; HCO3 VBG 11.5 mEq/l (24.0-30.0); PO2 VBG 60.2 mmHg (35.0-45.0); pH VBG 7.286 (7.300-7.400)
[2024-08-20 16:40] LABS: PCO2 VBG 24.6 mmHg (42.0-48.0)
[2024-08-20 16:59] LABS: Hematocrit 40.8 % (42.0-52.0); Hemoglobin 14.3 g/dL (14.0-18.0); Immature Granulocyte Percent A 0.2 % (0-0.5); Lymphocytes Absolute Auto 1.26 K/mm3 (0.9-3.2); Mean Corpuscular HGB Conc 35.0 g/dl (32-36); Mean Corpuscular Hemoglobin 29.9 pg (26-34); Mean Corpuscular Volume 85.4 fl (80-100); Nucleated Red Blood Cells Absolute Auto 0.000 K/mm3 (0.0-0.012); Nucleated Red Blood Cells Perc 0.0 % (0.0-0.2); Platelet Count Result 171 k/mm3 (150-375); Red Blood Count 4.78 M/mm3 (4.6-6.20); White Blood Count 5.2 K/mm3 (4.5-10.0)
[2024-08-20] MEDS: FAMOTIDINE 20 MG/2 ML VIAL IV PUSH (17:05)
[2024-08-20 17:06] LABS: Add Urine Microscopic? YES; Appearance Urine Clear (Clear); Glucose Urine UA 3+ mg/dL (Negative); Leukocyte Esterase Ur Negative LEU/UL (Negative); Need Manual Microscopic Reviewed; Nitrate Urine Negative (Negative); Specific Grav Ur 1.039 (1.001-1.035)
[2024-08-20] MEDS: LACTATED RINGERS 1,000 ML 999 ML IV CONT ×2 (17:07→17:08)
[2024-08-20] MEDS: BELLADONNA ALK/PHENOB ELIX 10 ML, MAG HYDROX/ALUMINUM HYD/SIMETH 30 ML, LIDOCAINE 2% VI... PO (17:14)
[2024-08-20 17:15] LABS: Alanine Aminotransferase 22 U/L (6-50); Albumin Level 4.6 g/dL (3.5-5.1); Alkaline Phosphatase 135 U/L (38-126); Anion Gap 23 mmol/L (4-12); Aspartate Amino Transferase 26 U/L (17-59); Bilirubin,Total 0.9 mg/dL (0.2-1.3); Blood Urea Nitrogen 8 mg/dL (9-20); Calcium 9.0 mg/dL (8.4-10.2); Carbon Dioxide 9 mmol/L (22-30); Chloride 102 mmol/L (98-107); Estimated Glomerular Filt Rate > 60; Glucose 291 mg/dL (65-110); Magnesium 1.9 mg/dL (1.6-2.3); Potassium 3.8 mmol/L (3.4-5.0); Sodium 134 mmol/L (137-145); Total Protein 7.4 g/dL (6.3-8.2)
[2024-08-20 17:28] LABS: Troponin I < 0.012 ng/mL (0.000-0.034)
[2024-08-20] MEDS: POTASSIUM CHLORIDE 20 MEQ PACKET (FOR LIQUID) 60 MEQ PO (17:44)
[2024-08-20] MEDS: KCL 20MEQ/0.9% SOD CHL 1,000 ML 150 ML IV CONT (17:46)
[2024-08-20 17:49] LABS: Hemoglobin A1C. 13.4 % (<5.7)
[2024-08-20 18:00] LABS: Beta-Hydroxybutyrate/Acetoacetate 9.11 mmol/L (0.02-0.27)
--- NOTE | 2024-08-20 18:06 | P.HP_ITS ---
H&P: HPI History of Present Illness Date/Time: 08/20/24 23:00 Chief Complaint: Shortness of breath x 2 weeks, nausea, epigastric pain, DKA Narrative: This is a 44-year-old male patient who was admitted to the hospital for DKA. Patient reports that he can no longer afford his previously prescribed Invokana since the cost went up from about $120 a month to over $800 a month. Additionally, he no longer is taking any insulin. He is only using metformin 1000 mg twice a day. Patient stated that he had epigastric pain and nausea earlier as well. He denies chest pain or fever. Denies dysuria. Denies any wounds or injuries. In the emergency department lab work revealed acidosis with a venous pH of 7.286 with pCO2 of 24.6 and HC03 of 11.5. Chemistry panel had carbon dioxide of 9 anion and serum glucose of 291. Patient received 2 L of IV fluids. Hemoglobin A1c was 13.4. Urinalysis with 3+ glucose and 4+ ketones. Beta hydroxybutyrate was 9.11. Potassium level was 3.8. ER initiated insulin drip at 6.5 units per hour, no bolus because glucose level was below 300. IV fluids with potassium ordered. Oral potassium 60 mEq given at the initiation of insulin drip. Patient admitted to the ICU for DKA protocol including hourly fingerstick glucose and titration of drip as well as IV fluids with dextrose if glucose is below 250. Repeat metabolic panels ordered every 4-6 hours. Will recheck VBG, Beta-hydroxybutyrate, magnesium, renal function panel, CMP and CBC as part of AM labs in the morning. Also, due to shortness of breath for 2 weeks, considered CTA to rule out PE but patient not tachycardic or hypoxic. His increased respirations are due to compensation attempts against metabolic acidosis as he has been in DKA for a while (it seems.) We decided to just check CXR in the morning when Radiology comes to the ICU. Will check D-Dimer, BNP with morning labs. Repeat metabolic panel shows carbon dioxide still very low at 10 with glucose at 255. Second troponin was negative. EKGs have ST segment changes (likely early repolarization) but they are definitely different from each other and different from prior EKG on file. Review of Systems Review of Systems: All systems reviewed & are unremarkable except as noted in HPI and below PMFSH Past Medical History Medical History patient care representative needed Renal mass COVID-19 Candidal balanitis Diabetic ketoacidosis, type II Chest pain Dysgeusia Type 2 diabetes mellitus Depression with anxiety Hyperlipidemia Surgical History Surgical History No history of previous surgery Family History Family History Unknown Family history unknown Social History Social History Social History: Surrogate medical decision maker: Irene Cummings, spouse. Code status: Full code. Smoking packs per day: 0 Smoking cigarettes per day: 0.0 Smoking status: Never smoker Alcohol intake: never Drinks per week: 1 Substance use: never Substance use type: does not use Last use: 1 yr ago Do You Feel Safe in your Home?: Yes Lack of Transportation: No Lack of Food: Never True Current Housing: I Have Housing Concerned About Future Housing: No Difficulty Paying Gas/Electric Bills: No Difficulty Paying for Meds: YES Currently Unemployed: No Education: Grade School Difficulty w/ Childcare or Family Care: No Living arrangements: with family Additional living arrangements comments: The patient is and lives with his and children in [place]. Additional occupation/education comments: Not currently working. Spiritual care concerns: No Meds Home Medications and Allergies Home Medications ?Medication ?Instructions ?Recorded ?Confirmed ?Type blood-glucose meter (OneTouch #1 pkg 12/29/22 08/20/24 Rx Verio Flex Meter) lancets 30 gauge (OneTouch Delica #1 pkg 12/29/22 08/20/24 Rx Plus Lancet) canagliflozin 300 mg tablet 300 mg PO DAILY 09/23/23 08/20/24 History (Invokana) insulin glargine 100 unit/mL (3 10 unit subcut QAM 09/23/23 08/20/24 History mL) subcutaneous pen (Lantus Solostar U-100 Insulin) simvastatin 20 mg tablet 20 mg PO DAILY 09/23/23 08/20/24 History metformin 500 mg tablet 1,000 mg PO BID 08/20/24 08/20/24 History Allergies Allergy/AdvReac Type Severity Reaction Status Date / Time No Known Allergies Allergy Verified 08/20/24 16:41 Vital Signs Vital Signs - 24 hr 08/20/24 16:35 08/20/24 16:35 08/20/24 16:36 Temperature 36.6 C Pulse Rate 86 84 87 Respiratory Rate 20 18 16 Blood Pressure 114/88 114/88 Pulse Oximetry 96 99 99 Oxygen Delivery Room Air 08/20/24 16:45 08/20/24 16:46 08/20/24 17:00 Temperature Pulse Rate 87 85 84 Respiratory Rate 22 H 22 H 17 Blood Pressure 115/84 Pulse Oximetry 98 93 97 Oxygen Delivery 08/20/24 17:01 08/20/24 17:15 Temperature Pulse Rate 80 82 Respiratory Rate 16 20 Blood Pressure 116/91 H Pulse Oximetry 97 99 Oxygen Delivery Exam Narrative: GENERAL: Well-appearing, well-nourished, and in no acute distress. HEAD: Normocephalic, atraumatic. ENT:? Mucous membranes moist. CHEST: Clear to auscultation.? No respiratory distress. HEART: Regular rate and rhythm. ? Normal peripheral pulses. ABDOMEN: Soft, nontender, nondistended. EXTREMITIES: Normal range of motion. No peripheral edema. SKIN: Warm dry normal color NEURO: Alert and oriented x3. PSYCH: Normal mood and affect H&P: Results Labs Labs: Short CBC 08/20/24 Range/Units 16:44 WBC 5.2 (4.5-10.0) K/mm3 Hgb 14.3 (14.0-18.0) g/dL Hct 40.8 L (42.0-52.0) % Plt Count 171 (150-375) k/mm3 BMP 08/20/24 08/20/24 08/20/24 16:44 16:44 16:44 Sodium Cancelled 134 L Potassium Cancelled 3.8 Chloride Cancelled Carbon Dioxide BUN Creatinine Glucose Calcium 08/20/24 08/20/24 08/20/24 16:44 16:44 16:44 Sodium Potassium Chloride 102 Carbon Dioxide Cancelled 9 L BUN Cancelled 8 L D Creatinine Cancelled Glucose Calcium 08/20/24 08/20/24 08/20/24 16:44 16:44 16:44 Sodium Potassium Chloride Carbon Dioxide BUN Creatinine 0.62 L Glucose Cancelled 291 H Calcium Cancelled 9.0 Cardiac Enzymes 08/20/24 Range/Units 16:44 Troponin I < 0.012 (0.000-0.034) ng/mL Liver Function 08/20/24 08/20/24 08/20/24 Range/Units 16:44 16:44 16:44 Total Bilirubin Cancelled 0.9 AST Cancelled 26 ALT Cancelled Alkaline Phosphatase Albumin 08/20/24 08/20/24 08/20/24 Range/Units 16:44 16:44 16:44 Total Bilirubin AST ALT 22 Alkaline Phosphatase Cancelled 135 H Albumin Cancelled 4.6 Urine 08/20/24 Range/Units 16:44 Urine Color Yellow (Yellow) Urine Appearance Clear (Clear) Urine pH 5.5 (5.0-9.0) Ur Specific [place] 1.039 H (1.001-1.035) Urine Protein 1+ H (Negative) mg/dL Urine Glucose (UA) 3+ H (Negative) mg/dL ABG ABG results: PH 7.286, pCO2 24.6, PO2 60.2, HC03 11.5 on room air Attestation: I personally reviewed and interpreted this ABG as follows: Interpretation: Metabolic acidosis with partial respiratory compensation Pulse Oximetry SpO2 results: 97-99% on room air Attestation: I personally reviewed and interpreted this pulse oximetry as follows: Interpretation: No need for supplemental oxygenation at this time ECG Attestation: I personally reviewed and interpreted this ECG as follows: ECG completion date: 08/20/24 ECG completion time: 16:54 Prior ECG tracings: available for review Interpretation: Sinus rhythm rate of 85 CO interval 151 QRS duration 94 QTC 393 QRS axis 10? ST elevation in Leads 1, 2, AVF, AVL, V5 and V6 with ST depression in AVR, likely early repolarization Assessment and Plan Assessment and plan (1) DKA (diabetic ketoacidosis): Qualifiers: Diabetes mellitus complication detail: without coma Diabetes mellitus type: other specified (including DEL) Qualified Code(s): E13.10 - Other specified diabetes mellitus with ketoacidosis without coma Code(s): E11.10 - Type 2 diabetes mellitus with ketoacidosis without coma Status: Acute Assessment and Plan: -epigastric pain, nausea and elevated blood sugar on presentation -only taking metformin, ran out Invokana and insulin discontinued previously -Prior history of DKA in the past as well -symptoms worsening over 2 weeks -initial metabolic panel with anion gap of 23, carbon dioxide 9, beta hydroxybutyrate 9.11, pH 7.286 with significant attempted respiratory compensation with pCO2 of 24.6 -insulin drip without bolus given in the ER due to blood sugar in the 200s -potassium was 3.8 initially, potassium containing fluids started and oral potassium 60 mEq given -repeat metabolic panel anion gap 18, carbon dioxide 10, glucose 255--continue insulin drip and every 4 hour metabolic panels -ICU attending aware of patient in ICU, will see in the morning (2) Abnormal ECG: Code(s): R94.31 - Abnormal electrocardiogram [ECG] [EKG] Status: Acute Assessment and Plan: -Initial EKG in ER showed ST elevation in Leads 1, 2, AVF, AVL, V5 and V6 with ST depression in AVR -Initial troponin normal -Second EKG shows ST elevation in Leads 3, AVF, V2, V3, V4, V5, V6 with ST depression in Lead 1 and AVL -Repeat troponin pending (3) patient care representative needed: Code(s): Z75.8 - Other problems related to medical facilities and other health care Status: Chronic Assessment and Plan: -Romanian speaking patient (4) Hyperlipidemia: Qualifiers: Hyperlipidemia type: mixed hyperlipidemia Qualified Code(s): E78.2 - Mixed hyperlipidemia Code(s): E78.5 - Hyperlipidemia, unspecified Status: Chronic Assessment and Plan: -Previously on simvastatin, ordered routine lipid panel -Elevated triglycerides, total cholesterol and LDL (5) Depression with anxiety: Code(s): F41.8 - Other specified anxiety disorders Status: Chronic Assessment and Plan: -Stable (6) Epigastric pain: Code(s): R10.13 - Epigastric pain Status: Acute Assessment and Plan: -Abnormal EKGs (Early Repolarization) with negative troponin -Likely due to DKA/GI cause rather than cardiac related -Lipase normal, bilirubin normal, LFTs normal -Associated with nausea, no vomiting and improved without pain medications since arrival to ER Plan Admit to ICU Full Code Quality VTE Prophylaxis VTE prophylaxis: pharmacologic ordered Total time with this patient including critical care documented below: 115 minutes Due to a high probability of clinically significant, life threatening deterioration, the patient required my highest level of preparedness to intervene emergently and I personally spent this critical care time directly and personally managing the patient. This critical care time included obtaining a history; examining the patient; pulse oximetry; ordering and review of studies; arranging urgent treatment with development of a management plan; evaluation of patient's response to treatment; frequent reassessment; and discussions with other providers. It was exclusive of separately billable procedures and treating other patients and teaching time. Please see Assessment and Plan section and the rest of the note for further information on patient assessment and treatment. Critical Care time: 35 minutes Hospitalist MIPS Advance Care Plan I have confirmed that the patient's Advanced Care Plan is present, code status is documented, or surrogate decision maker is listed in patient medical record.: Yes Medication Reconciliation I have utilized all available resources to obtain, update and review the p atients current medications (includes all prescriptions, OTC, herbals, cannabis, and nutritional supplements).: Yes
[2024-08-20] MEDS: INSULIN HUMAN REGULAR (*BKC) 100 UNITS in SODIUM CHLORIDE 0.9% IV 99 ML 6.5 UNITS IV CONT (18:15)
--- NOTE | 2024-08-20 18:38 | ADMGEN ---
This patient, Joseph Calvillo, was admitted to Intensive Care Unit-7. Patient/family oriented to hospital policies and general routines including ID bracelet, bed and alarms, visiting hours, pain management, procedures, bathroom and other care routines, personal items, smoking policy, room service/diet, and visiting hours. Information on how to activate the Rapid Response Team has been discussed. Patient/Family are encouraged to report perceived risks to care and to ask questions if they do not understand what they are told or what they should do.
--- NOTE | 2024-08-20 18:50 | ECG_ITS ---
Test Date: 2024-08-20 18:55:36 Measurements Intervals [place] Rate: 72 P: 162 MS: 149 QRS: 169 QRSD: 81 T: 160 QT: 343 QTc: 376 Interpretive Statements SINUS RHYTHM LIMB LEAD REVERSAL MINIMAL Q WAVES- INFERIOR LEADS ST ELEVATION IN ANTEROLAT/INF LEADS- PROBABLY EARLY REPOLARIZATION BASELINE ARTIFACT- AVR, AVL, AVF BORDERLINE ECG Compared to ECG 08/20/2024 16:54:50 NO SIGNIFICANT CHANGE Electronically Signed On 08-20-2024 19:55:35 CDT by Derek Urias D.O.
[2024-08-20 19:00] LABS: MRSA (PCR). NOT DETECTED (NOT DETECTE)
[2024-08-20] MEDS: SODIUM CHLORIDE 0.9% IV 1,000 ML 150 ML IV CONT (19:03)
[2024-08-20] MEDS: KCL 20 MEQ/D5/0.45% SOD CHL 1,000 ML 150 ML IV CONT (19:58)
[2024-08-20 20:46] LABS: Cholesterol 232 mg/dL (0-200); HDL Direct 55 mg/dL; Triglycerides 261 mg/dL (<150)
[2024-08-20 21:02] LABS: Alanine Aminotransferase 20 U/L (6-50); Albumin Level 4.0 g/dL (3.5-5.1); Alkaline Phosphatase 104 U/L (38-126); Anion Gap 18 mmol/L (4-12); Aspartate Amino Transferase 24 U/L (17-59); Bilirubin,Total 0.9 mg/dL (0.2-1.3); Blood Urea Nitrogen 5 mg/dL (9-20); Calcium 8.8 mg/dL (8.4-10.2); Carbon Dioxide 10 mmol/L (22-30); Chloride 106 mmol/L (98-107); Creatine Kinase 184 U/L (55-170); Estimated CRCL calculation 123 ml/min; Estimated Glomerular Filt Rate > 60; Glucose 255 mg/dL (65-110); Lipase 89 U/L (23-300); Potassium 4.0 mmol/L (3.4-5.0); Sodium 134 mmol/L (137-145); Total Protein 6.6 g/dL (6.3-8.2); Troponin I < 0.012 ng/mL (0.000-0.034)
[2024-08-21] VITALS (15 sets, daily range): BP systolic 90–111; BP diastolic 63–83; PULSE 61–98; RESP 14–20; TEMP 36.3–36.8; O2SAT 94–99
--- NOTE | 2024-08-21 | ECHO_ITS ---
Patient Info Name: Joseph Calvillo Age: 44 years : 1980 Gender: Male Ht: 60 in Wt: 145 lbs BSA: 1.69 m2 HR: 65 bpm BP: 106 / 83 mmHg Technical Quality: Good Exam Date: 08/21/2024 9:33 AM Patient Status: O Admit Date: 08/20/2024 Exam Type: CA echo doppler color flow Complete two-dimensional, color flow and Doppler transthoracic echocardiogram is performed. Staff Referring Physician: Ad Dodson Sash Maker: Flavia Graham Attending Provider: Kale Paz Summary 1. Complete two-dimensional, color flow and Doppler transthoracic echocardiogram is performed. 2. Left ventricular systolic function is normal, estimated at 50-55. 3. The left ventricular diastolic function is grade II diastolic dysfunction. 4. Left atrial chamber dimension is mildly enlarged. 5. There is trace aortic valve regurgitation. 6. There is mild tricuspid valve regurgitation. 7. No pulmonary hypertension, estimated pulmonary arterial systolic pressure is 29 mmHg. 8. There is mild pulmonic regurgitation. Left Ventricle Left ventricular chamber dimension is normal. Left ventricular systolic function is normal, estimated at 50-55. There is no increased left ventricular wall thickness. The left ventricular diastolic function is grade II diastolic dysfunction. Right Ventricle Right ventricular chamber dimension is normal. Right ventricular systolic function is normal. Left Atria Left atrial chamber dimension is mildly enlarged. Right Atria Right atrial chamber dimension is normal. Aortic Valve The aortic valve is trileaflet. There is mild aortic valve sclerosis. There is no aortic valve stenosis. There is trace aortic valve regurgitation. Pulmonic Valve The pulmonic valve is normal. There is no pulmonic valve stenosis. There is mild pulmonic regurgitation. Mitral Valve The mitral valve has normal leaflets. There is no mitral valve stenosis. There is no mitral valve regurgitation. Tricuspid Valve The tricuspid valve leaflets are normal. There is no significant tricuspid valve stenosis. There is mild tricuspid valve regurgitation. No pulmonary hypertension, estimated pulmonary arterial systolic pressure is 29 mmHg. Pericardium/Pleural The pericardium appears normal. There is no pericardial effusion. Inferior Vena Cava Normal inferior vena cava with <50% collapse upon inspiration consistent with elevated right atrial pressure, 10 mmHg. Aorta The aortic root size at the sinus of Valsalva is normal. The prox ascending aorta size is normal. Left Ventricular Outflow Tract Name Value Normal LVOT 2D LVOT Diameter 2.2 cm LVOT Doppler LVOT Peak Velocity 104 cm/s LVOT Peak Gradient 4 mmHg LVOT Mean Gradient 2 mmHg LVOT VTI 16 cm LVOT VTI/AV VTI Ratio 0.7 LVOT Stroke Volume 61 ml LVOT CO 4.4 l/min LVOT CI 2.6 l/min/m2 Pulmonic Valve Name Value Normal PV Doppler PV Peak Velocity 89 cm/s PV Peak Gradient 3 mmHg Mitral Valve Name Value Normal MV Diastolic Function MV E Peak Velocity 79 cm/s MV A Peak Velocity 59 cm/s MV E/A 1.3 MV Decel Time (PW) 216 ms MV Annular TDI MV E/e' (Septal) 10.2 MV E/e' (Lateral) 8.1 MV E/e' (Average) 9.1 Tricuspid Valve Name Value Normal TV Regurgitation Doppler TR Peak Velocity 217 cm/s TR Peak Gradient 17 mmHg Estimated PAP/RSVP RA Pressure 10 mmHg <=5 PA Systolic Pressure 29 mmHg <36 RV Systolic Pressure 29 mmHg <36 TV Annular TDI TV Lateral Asha s' Velocity 12.8 cm/s >=9.5 Aortic Valve Name Value Normal AV Doppler AV Peak Velocity 125 cm/s AV Peak Gradient 6 mmHg AV Mean Gradient 4 mmHg AV VTI 22 cm AV Area (Cont Eq VTI) 2.8 cm2 >=3.0 AV Area (Cont Eq Dean) 3.1 cm2 AV DI (Dean) 0.83 AV Regurgitation 2D LVOT Area 3.8 cm2 Ventricles Name Value Normal LV Dimensions 2D/MM IVS Diastolic Thickness (2D) 0.7 cm 0.6-1.0 LVID Diastole (2D) 4.3 cm 4.2-5.8 LVIW Diastolic Thickness (2D) 0.7 cm 0.6-1.0 LVID Systole (2D) 3.1 cm 2.5-4.0 LVOT Diameter 2.2 cm LV Mass (2D Cubed) 84.26 g 88.00-224.00 LV Mass Index (2D Cubed) 50 g/m2 49-115 Relative Wall Thickness (2D) 0.31 <=0.42 LV Fractional Shortening/Ejection Fraction 2D/MM LV Fractional Shortening (2D) 28 % 25-43 LV EF (2D Teichholz) 55 % LV Diastolic Volume (4C MOD) 70 ml LV EF (4C MOD) 52 % LV Diastolic Volume (2C MOD) 72 ml LV EF (2C MOD) 58 % LV Diastolic Volume (BP MOD) 73 ml 62-150 LV Diastolic Volume Index (BP MOD) 43 ml/m2 34-74 LV Systolic Volume (BP MOD) 32 ml 21-61 LV Systolic Volume Index (BP MOD) 19 ml/m2 11-31 LV EF (BP MOD) 56 % 52-72 LV Diastolic Length (4C) 7.7 cm LV Systolic Length (4C) 6.4 cm LV Stroke Volume (4C MOD) 36 ml Atria Name Value Normal LA Dimensions LA Volume (4C A-L) 38 ml LA Volume (BP A-L) 32 ml RA Dimensions RA Systolic Major [place] Length (4C) 4.4 cm 2.1-2.7 RA Area (4C) 14.1 cm2 <=18.0 Report Signatures
[2024-08-21 01:41] LABS: Anion Gap 13 mmol/L (4-12); Blood Urea Nitrogen 5 mg/dL (9-20); Calcium 8.9 mg/dL (8.4-10.2); Carbon Dioxide 15 mmol/L (22-30); Chloride 106 mmol/L (98-107); Estimated CRCL calculation 130 ml/min; Estimated Glomerular Filt Rate > 60; Glucose 180 mg/dL (65-110); Potassium 3.4 mmol/L (3.4-5.0); Sodium 134 mmol/L (137-145)
[2024-08-21] MEDS: POTASSIUM CHLORIDE 20 MEQ ER TABLET 60 MEQ PO (02:50)
[2024-08-21] MEDS: KCL 20 MEQ/D5/0.45% SOD CHL 1,000 ML 150 ML IV CONT ×2 (02:50→08:38)
[2024-08-21 04:38] LABS: Hematocrit 38.8 % (42.0-52.0); Hemoglobin 13.9 g/dL (14.0-18.0); Immature Granulocyte Percent A 0.2 % (0-0.5); Lymphocytes Absolute Auto 1.55 K/mm3 (0.9-3.2); Mean Corpuscular HGB Conc 35.8 g/dl (32-36); Mean Corpuscular Hemoglobin 30.5 pg (26-34); Mean Corpuscular Volume 85.1 fl (80-100); Nucleated Red Blood Cells Absolute Auto 0.000 K/mm3 (0.0-0.012); Nucleated Red Blood Cells Perc 0.0 % (0.0-0.2); Platelet Count Result 163 k/mm3 (150-375); Red Blood Count 4.56 M/mm3 (4.6-6.20); White Blood Count 4.5 K/mm3 (4.5-10.0)
[2024-08-21 04:49] LABS: Fractional Inspired Oxygen 21 %; HCO3 VBG 18.6 mEq/l (24.0-30.0); PCO2 VBG 32.1 mmHg (42.0-48.0); PO2 VBG 85.5 mmHg (35.0-45.0); pH VBG 7.380 (7.300-7.400)
[2024-08-21 04:59] LABS: Beta-Hydroxybutyrate/Acetoacetate 2.17 mmol/L (0.02-0.27)
[2024-08-21 05:12] LABS: Alanine Aminotransferase 19 U/L (6-50); Albumin Level 3.5 g/dL (3.5-5.1); Alkaline Phosphatase 79 U/L (38-126); Anion Gap 9 mmol/L (4-12); Aspartate Amino Transferase 23 U/L (17-59); Bilirubin,Total 0.8 mg/dL (0.2-1.3); Blood Urea Nitrogen 4 mg/dL (9-20); Calcium 8.7 mg/dL (8.4-10.2); Carbon Dioxide 17 mmol/L (22-30); Chloride 106 mmol/L (98-107); Estimated CRCL calculation 125 ml/min; Estimated Glomerular Filt Rate > 60; Glucose 201 mg/dL (65-110); Magnesium 1.7 mg/dL (1.6-2.3); NT Pro B Type Natriuretic Pept < 20 pg/mL (19.9-100); Potassium 4.1 mmol/L (3.4-5.0); Sodium 132 mmol/L (137-145); Total Protein 6.1 g/dL (6.3-8.2)
--- NOTE | 2024-08-21 07:49 | ECG_ITS ---
Test Date: 2024-08-21 08:19:56 Measurements Intervals [place] Rate: 65 P: 36 TN: 158 QRS: 8 QRSD: 85 T: 15 QT: 358 QTc: 374 Interpretive Statements SINUS RHYTHM ST ELEVATION IN DIFFUSE LEADS- PROBABLY EARLY REPOLARIZATION BORDERLINE ECG Compared to ECG 08/20/2024 18:55:36 NO SIGNIFICANT CHANGE Electronically Signed On 08-21-2024 09:25:17 CDT by Derek Urias D.O.
[2024-08-21 08:25] LABS: Troponin I < 0.012 ng/mL (0.000-0.034)
[2024-08-21] MEDS: MAGNESIUM SULF 2 GM/WATER 50ML 2 GM/50 ML BAG IVPB (08:38)
[2024-08-21] MEDS: ENOXAPARIN 40 MG/0.4 ML SYRINGE SUB-Q (08:39)
[2024-08-21] MEDS: LACTATED RINGERS 500 ML IV CONT (08:39)
--- NOTE | 2024-08-21 08:40 | WPDCNINT ---
Assessment and Plan Assessment and plan (1) DKA (diabetic ketoacidosis): Qualifiers: Diabetes mellitus complication detail: without coma Diabetes mellitus type: other specified (including DEL) Qualified Code(s): E13.10 - Other specified diabetes mellitus with ketoacidosis without coma Code(s): E11.10 - Type 2 diabetes mellitus with ketoacidosis without coma Status: Acute Assessment and Plan: 08/20: Patient presented with nausea, vomiting, epigastric pain, elevated blood sugars. In the ER was found to be in diabetic ketoacidosis -patient has only been taking his metformin 1000 mg twice daily, patient is NOT taking his SGLT 2 inhibitor, Invokana, as he can no longer afford it as the cost has gone up from 120 dollars a month to over 800 dollars a month. -Patient used to be previously on insulin in the past but no longer insulin dependent -patient received 2 L of IV fluid bolus in the ER, started on insulin infusion per DKA protocol and transferred to the ICU for further management -will transition to long-acting insulin and sliding scale insulin once anion gap and CO2 improve -will have life skills educator and dietitian and evaluate the patient -hemoglobin A1c is 13.4 this admission patient (2) Type 2 diabetes mellitus: Code(s): E11.9 - Type 2 diabetes mellitus without complications Status: Acute Assessment and Plan: As above (3) Abnormal ECG: Code(s): R94.31 - Abnormal electrocardiogram [ECG] [EKG] Status: Acute Assessment and Plan: EKG showed ST-T changes on multiple EKGs -troponin x2 are negative -repeat troponins pending -Appreciate cardiology evaluation recommendations, EKG changes early repolarization, given that troponins are negative without any symptoms, no intervention at this time, Cardiology signed off -echocardiogram has been ordered (4) Hyperlipidemia: Qualifiers: Hyperlipidemia type: mixed hyperlipidemia Qualified Code(s): E78.2 - Mixed hyperlipidemia Code(s): E78.5 - Hyperlipidemia, unspecified Status: Chronic Assessment and Plan: Patient on simvastatin at home, -will restart when he starts taking p.o. (5) Depression with anxiety: Code(s): F41.8 - Other specified anxiety disorders Status: Chronic Assessment and Plan: Patient is not on any depression anxiety medications at home Plan DVT prophylaxis: Lovenox Stress ulcer prophylaxis: Will add Protonix given epigastric pain Nutrition: NPO for now Code Status: Full code Critical Care Time Spent: 49 minutes Due to a high probability of clinically significant, life threatening deterioration, the patient required my highest level of preparedness to intervene emergently and I personally spent this critical care time directly and personally managing the patient. This critical care time included obtaining a history; examining the patient; pulse oximetry; ordering and review of studies; arranging urgent treatment with development of a management plan; evaluation of patient's response to treatment; frequent reassessment; and discussions with other providers. It was exclusive of separately billable procedures and treating other patients and teaching time. Please see Assessment and Plan section and the rest of the note for further information on patient assessment and treatment This dictation may have been done utilizing a voice recognition system. Attempts have been made to correct errors. However, there may be uncorrected grammatical, spelling, and recognitions errors present. Clinical Account Manager Consult Note Consult date: 08/21/24 Reason for consult: Nausea, vomiting, hyperglycemia, epigastric pain, diabetic ketoacidosis HPI: Joseph Calvillo is a 44 year old male with past medical history of insulin-dependent diabetes, hyperlipidemia, depression, anxiety, history of noncardiac chest pain status post EGD on 10/12/2023 showed normal EGD presented to the ER on 08/20/2024 with complains of nausea, vomiting, epigastric pain with elevated blood sugar reading. Symptoms ongoing intermittently for the last 2 weeks states he is only taking his metformin as he has an out of his SGL 2 and a Sita several months ago and was previously on insulin the past but no longer insulin dependent. Patient denies any chest pains, shortness of breath, fevers, dysuria. Admission labs showed a hemoglobin of 14.3, WBC 5.2, platelets of 171. VBG showed a pH of 7.28. Sodium 134, potassium 3.8, CO2 9, anion gap of 23. Blood sugars of 304, hemoglobin A1c 13.4, LFTs are normal, troponins x2 were negative, beta hydroxybutyrate was 9.11. UA was positive for urine proteins, urine glucose and urine ketones, MRSA screen was negative. Chest x-ray was clear. Multiple EKG showed ST elevations in inferior and anterolateral leads, ST depression I and aVL. Patient was given 2 L IV fluid bolus, started on insulin infusion per DKA protocol and transferred to the ICU for further management Patient seen and examined this morning in the ICU, is awake, alert, feels better. Denies any chest pain, shortness on breath, abdominal pain, nausea, vomiting. No other complaints, hemodynamically stable, on room air with adequate O2 sats. Denies any tobacco use, illicit drug use. Drinks alcohol 1 or 2 times per week Review of Systems Review of Systems: All systems reviewed & are unremarkable except as noted in HPI and below PMFSH Past Medical History Medical History director private needed Renal mass COVID-19 Candidal balanitis Diabetic ketoacidosis, type II Chest pain Dysgeusia Type 2 diabetes mellitus Depression with anxiety Hyperlipidemia Surgical History Surgical History No history of previous surgery Family History Family History Unknown Family history unknown Social History Social History Social History: Surrogate medical decision maker: Irene Cummings, spouse. Code status: Full code. Smoking packs per day: 0 Smoking cigarettes per day: 0.0 Smoking status: Never smoker Alcohol intake: never Drinks per week: 1 Substance use: never Substance use type: does not use Last use: 1 yr ago Do You Feel Safe in your Home?: Yes Lack of Transportation: No Lack of Food: Never True Current Housing: I Have Housing Concerned About Future Housing: No Difficulty Paying Gas/Electric Bills: No Difficulty Paying for Meds: YES Currently Unemployed: No Education: Grade School Difficulty w/ Childcare or Family Care: No Living arrangements: with family Additional living arrangements comments: The patient is and lives with his and children in [place]. Additional occupation/education comments: Not currently working. Spiritual care concerns: No Meds Home Medications and Allergies Home Medications ?Medication ?Instructions ?Recorded ?Confirmed ?Type blood-glucose meter (OneTouch #1 pkg 12/29/22 08/20/24 Rx Verio Flex Meter) lancets 30 gauge (OneTouch Delica #1 pkg 12/29/22 08/20/24 Rx Plus Lancet) canagliflozin 300 mg tablet 300 mg PO DAILY 09/23/23 08/20/24 History (Invokana) insulin glargine 100 unit/mL (3 10 unit subcut QAM 09/23/23 08/20/24 History mL) subcutaneous pen (Lantus Solostar U-100 Insulin) simvastatin 20 mg tablet 20 mg PO DAILY 09/23/23 08/20/24 History metformin 500 mg tablet 1,000 mg PO BID 08/20/24 08/20/24 History Allergies Allergy/AdvReac Type Severity Reaction Status Date / Time No Known Allergies Allergy Verified 08/20/24 16:41 Vital Signs Vital Signs - 24 hr 08/20/24 16:35 08/20/24 16:35 08/20/24 16:36 Temperature 97.8 F Pulse Rate 86 84 87 Respiratory Rate 20 18 16 Blood Pressure 114/88 114/88 Pulse Oximetry 96 99 99 Oxygen Delivery Room Air 08/20/24 16:45 08/20/24 16:46 08/20/24 17:00 Temperature Pulse Rate 87 85 84 Respiratory Rate 22 H 22 H 17 Blood Pressure 115/84 Pulse Oximetry 98 93 97 Oxygen Delivery 08/20/24 17:01 08/20/24 17:15 08/20/24 18:38 Temperature 98.2 F Pulse Rate 80 82 76 Respiratory Rate 16 20 19 Blood Pressure 116/91 H 106/79 Pulse Oximetry 97 99 99 Oxygen Delivery 08/20/24 20:00 08/20/24 20:00 08/20/24 20:00 Temperature 98.3 F Pulse Rate 72 71 Respiratory Rate 16 Blood Pressure 101/78 Pulse Oximetry 98 Oxygen Delivery Room Air 08/20/24 22:00 08/20/24 22:00 08/21/24 00:00 Temperature Pulse Rate 73 73 Respiratory Rate 16 Blood Pressure 110/82 Pulse Oximetry 98 Oxygen Delivery Room Air 08/21/24 00:00 08/21/24 00:00 08/21/24 02:00 Temperature 97.9 F Pulse Rate 72 73 67 Respiratory Rate 16 Blood Pressure 90/66 L Pulse Oximetry 99 Oxygen Delivery 08/21/24 02:00 08/21/24 04:00 08/21/24 04:00 Temperature 97.4 F L Pulse Rate 67 72 67 Respiratory Rate 15 15 Blood Pressure 109/78 90/63 L Pulse Oximetry 97 98 Oxygen Delivery 08/21/24 06:00 08/21/24 06:04 08/21/24 08:00 Temperature 98.1 F Pulse Rate 61 65 65 Respiratory Rate 15 14 Blood Pressure 106/83 106/63 Pulse Oximetry 98 98 Oxygen Delivery Exam Narrative: General: Pleasant gentleman in no acute distress HEENT:? Pupils equal reactive, sclera is clear, dry oral mucosa Neck:? Supple Respiratory:? Clear to auscultation bilaterally, no wheezing, adequate air entry Cardiac:? S1-S2 is normal, regular rate and rhythm Abdomen:? Soft, nontender, distended, normoactive bowel sounds Extremities:? No edema, palpable pedal pulses bilaterally Neuro: Patient is awake, alert, answers to questions appropriately, moves all extremities spontaneously and to commands Skin:? No lesions noted Psych:? Normal mentation and affect Results Labs 08/21/24 04:32 08/21/24 08:36 Labs: Short CBC 08/20/24 08/21/24 Range/Units 16:44 04:32 WBC 5.2 4.5 (4.5-10.0) K/mm3 Hgb 14.3 13.9 L (14.0-18.0) g/dL Hct 40.8 L 38.8 L (42.0-52.0) % Plt Count 171 163 (150-375) k/mm3 BMP 08/20/24 08/20/24 08/20/24 16:44 16:44 16:44 Sodium Cancelled 134 L Potassium Cancelled 3.8 Chloride Cancelled Carbon Dioxide BUN Creatinine Glucose Calcium 08/20/24 08/20/24 08/20/24 16:44 16:44 16:44 Sodium Potassium Chloride 102 Carbon Dioxide Cancelled 9 L BUN Cancelled 8 L D Creatinine Cancelled Glucose Calcium 08/20/24 08/20/24 08/20/24 16:44 16:44 16:44 Sodium Potassium Chloride Carbon Dioxide BUN Creatinine 0.62 L Glucose Cancelled 291 H Calcium Cancelled 9.0 08/20/24 08/21/24 08/21/24 20:03 01:23 04:32 Sodium 134 L 134 L 132 L Potassium 4.0 3.4 4.1 Chloride 106 106 106 Carbon Dioxide 10 L 15 L 17 L BUN 5 L 5 L 4 L Creatinine 0.50 L 0.47 L 0.49 L Glucose 255 H 180 H 201 H Calcium 8.8 8.9 8.7 Cardiac Enzymes 08/20/24 08/20/24 08/20/24 Range/Units 16:44 20:03 20:03 Total Creatine Kinase Cancelled 184 H Troponin I < 0.012 Cancelled (0.000-0.034) ng/mL 08/20/24 08/21/24 Range/Units 20:03 04:32 Total Creatine Kinase Troponin I < 0.012 < 0.012 (0.000-0.034) ng/mL Liver Function 08/20/24 08/20/24 08/20/24 Range/Units 16:44 16:44 16:44 Total Bilirubin Cancelled 0.9 AST Cancelled 26 ALT Cancelled Alkaline Phosphatase Albumin 08/20/24 08/20/24 08/20/24 Range/Units 16:44 16:44 16:44 Total Bilirubin AST ALT 22 Alkaline Phosphatase Cancelled 135 H Albumin Cancelled 4.6 08/20/24 08/21/24 Range/Units 20:03 04:32 Total Bilirubin 0.9 0.8 AST 24 23 ALT 20 19 Alkaline Phosphatase 104 79 Albumin 4.0 3.5 Urine 08/20/24 Range/Units 16:44 Urine Color Yellow (Yellow) Urine Appearance Clear (Clear) Urine pH 5.5 (5.0-9.0) Ur Specific [place] 1.039 H (1.001-1.035) Urine Protein 1+ H (Negative) mg/dL Urine Glucose (UA) 3+ H (Negative) mg/dL Quality VTE Prophylaxis VTE prophylaxis: pharmacologic ordered Hospitalist MIPS Advance Care Plan I have confirmed that the patient's Advanced Care Plan is present, code status is documented, or surrogate decision maker is listed in patient medical record.: Yes Medication Reconciliation I have utilized all available resources to obtain, update and review the patients current medications (includes all prescriptions, OTC, herbals, cannabis, and nutritional supplements).: Yes
[2024-08-21 08:56] LABS: Anion Gap 12 mmol/L (4-12); Blood Urea Nitrogen 3 mg/dL (9-20); Calcium 8.7 mg/dL (8.4-10.2); Carbon Dioxide 17 mmol/L (22-30); Chloride 103 mmol/L (98-107); Estimated CRCL calculation 138 ml/min; Estimated Glomerular Filt Rate > 60; Glucose 235 mg/dL (65-110); Potassium 4.0 mmol/L (3.4-5.0); Sodium 132 mmol/L (137-145)
[2024-08-21 09:07] LABS: Troponin I < 0.012 ng/mL (0.000-0.034)
--- NOTE | 2024-08-21 09:58 | P.CONCA_ITS ---
Assessment and Plan Assessment and plan (1) Abnormal ECG: Code(s): R94.31 - Abnormal electrocardiogram [ECG] [EKG] Status: Acute (2) DKA (diabetic ketoacidosis): Qualifiers: Diabetes mellitus complication detail: without coma Diabetes mellitus type: other specified (including DEL) Qualified Code(s): E13.10 - Other specified diabetes mellitus with ketoacidosis without coma Code(s): E11.10 - Type 2 diabetes mellitus with ketoacidosis without coma Status: Acute (3) Type 2 diabetes mellitus: Code(s): E11.9 - Type 2 diabetes mellitus without complications Status: Acute Plan 1. Diabetes 2. Diabetic ketoacidosis 3. Hyperlipidemia 4. Early repolarization changes EKG shows early repolarization changes. Compared to his prior EKG, the changes more prominent. This is most likely because of underlying electrolyte and acid- base changes He denies any prior CAD, mi or CVA Echo pending Negative troponin -no invasive evaluation needed -no need for therapeutic heparin -primary prevention as per ICU and Medicine teams -cardiology will sign off Rachele Villasenor MD [facility] Cardiology History of Present Illness History of Present Illness Consult date/time: 08/21/24 09:58 Reason For Visit: DKA Narrative: Mr Wright is a 44-year-old pleasant gentleman who was known to have diabetes and was admitted with DKA. Cardiology consulted for EKG changes the patient denies any chest pain EKG shows early repolarization changes. Compared to his prior EKG, the changes more prominent. 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 Code status: Full code. Smoking packs per day: 0 Smoking cigarettes per day: 0.0 Smoking status: Never smoker Alcohol intake: never Drinks per week: 1 Substance use: never Substance use type: does not use Last use: 1 yr ago Do You Feel Safe in your Home?: Yes Lack of Transportation: No Lack of Food: Never True Current Housing: I Have Housing Concerned About Future Housing: No Difficulty Paying Gas/Electric Bills: No Difficulty Paying for Meds: YES Currently Unemployed: No Education: Grade School Difficulty w/ Childcare or Family Care: No Living arrangements: with family Additional living arrangements comments: The patient is and lives with his and children in [place]. Additional occupation/education comments: Not currently working. Spiritual care concerns: No Meds Home Medications and Allergies Home Medications ?Medication ?Instructions ?Recorded ?Confirmed ?Type blood-glucose meter (OneTouch #1 pkg 12/29/22 08/20/24 Rx Verio Flex Meter) lancets 30 gauge (OneTouch Delica #1 pkg 12/29/22 08/20/24 Rx Plus Lancet) canagliflozin 300 mg tablet 300 mg PO DAILY 09/23/23 08/20/24 History (Invokana) insulin glargine 100 unit/mL (3 10 unit subcut QAM 09/23/23 08/20/24 History mL) subcutaneous pen (Lantus Solostar U-100 Insulin) simvastatin 20 mg tablet 20 mg PO DAILY 09/23/23 08/20/24 History metformin 500 mg tablet 1,000 mg PO BID 08/20/24 08/20/24 History Allergies Allergy/AdvReac Type Severity Reaction Status Date / Time No Known Allergies Allergy Verified 08/20/24 16:41 Vital Signs Vital Signs - 24 hr 08/20/24 16:35 08/20/24 16:35 08/20/24 16:36 Temperature 36.6 C Pulse Rate 86 84 87 Respiratory Rate 20 18 16 Blood Pressure 114/88 114/88 Pulse Oximetry 96 99 99 Oxygen Delivery Room Air 08/20/24 16:45 08/20/24 16:46 08/20/24 17:00 Temperature Pulse Rate 87 85 84 Respiratory Rate 22 H 22 H 17 Blood Pressure 115/84 Pulse Oximetry 98 93 97 Oxygen Delivery 08/20/24 17:01 08/20/24 17:15 08/20/24 18:38 Temperature 36.8 C Pulse Rate 80 82 76 Respiratory Rate 16 20 19 Blood Pressure 116/91 H 106/79 Pulse Oximetry 97 99 99 Oxygen Delivery 08/20/24 20:00 08/20/24 20:00 08/20/24 20:00 Temperature 36.8 C Pulse Rate 72 71 Respiratory Rate 16 Blood Pressure 101/78 Pulse Oximetry 98 Oxygen Delivery Room Air 08/20/24 22:00 08/20/24 22:00 08/21/24 00:00 Temperature Pulse Rate 73 73 Respiratory Rate 16 Blood Pressure 110/82 Pulse Oximetry 98 Oxygen Delivery Room Air 08/21/24 00:00 08/21/24 00:00 08/21/24 02:00 Temperature 36.6 C Pulse Rate 72 73 67 Respiratory Rate 16 Blood Pressure 90/66 L Pulse Oximetry 99 Oxygen Delivery 08/21/24 02:00 08/21/24 04:00 08/21/24 04:00 Temperature 36.3 C L Pulse Rate 67 72 67 Respiratory Rate 15 15 Blood Pressure 109/78 90/63 L Pulse Oximetry 97 98 Oxygen Delivery 08/21/24 06:00 08/21/24 06:04 08/21/24 08:00 Temperature 36.7 C Pulse Rate 61 65 65 Respiratory Rate 15 14 Blood Pressure 106/83 106/63 Pulse Oximetry 98 98 Oxygen Delivery Exam 2 Narrative: General: Pleasant gentleman in no acute distress HEENT:? Pupils equal reactive, sclera is clear, dry oral mucosa Neck:? Supple Respiratory:? Clear to auscultation bilaterally, no wheezing, adequate air entry Cardiac:? S1-S2 is normal, regular rate and rhythm Abdomen:? Soft, nontender, distended, normoactive bowel sounds Extremities:? No edema, palpable pedal pulses bilaterally Neuro: Patient is awake, alert, answers to questions appropriately, moves all extremities spontaneously and to commands Skin:? No lesions noted Psych:? Normal mentation and affect Results Labs and Meds 08/21/24 04:32 08/21/24 08:36 Lab results: Cardiac Enzymes 08/20/24 08/20/24 08/20/24 Range/Units 16:44 16:44 20:03 AST Cancelled 26 24 Troponin I < 0.012 Cancelled (0.000-0.034) ng/mL 08/20/24 08/21/24 08/21/24 Range/Units 20:03 04:32 08:32 AST 23 Troponin I < 0.012 < 0.012 < 0.012 (0.000-0.034) ng/mL Lipids 08/20/24 Range/Units 20:03 Triglycerides 261 H (<150) mg/dL Cholesterol 232 H (0-200) mg/dL CBC 08/20/24 08/21/24 Range/Units 16:44 04:32 WBC 5.2 4.5 (4.5-10.0) K/mm3 RBC 4.78 4.56 L (4.6-6.20) M/mm3 Hgb 14.3 13.9 L (14.0-18.0) g/dL Hct 40.8 L 38.8 L (42.0-52.0) % Plt Count 171 163 (150-375) k/mm3 Lymph # (Auto) 1.26 1.55 (0.9-3.2) K/mm3 [place] # (Auto) 0.4 0.4 (0.1-0.6) K/mm3 Eos # (Auto) 0.0 0.0 (0-0.3) K/mm3 Baso # (Auto) 0.0 0.0 (0.0-0.1) K/mm3 Comprehensive Metabolic Panel 08/20/24 08/20/24 08/20/24 Range/Units 16:44 16:44 16:44 Sodium Cancelled 134 L Potassium Cancelled 3.8 Chloride Cancelled Carbon Dioxide BUN Creatinine Glucose Calcium AST ALT Alkaline Phosphatase Total Protein Albumin 08/20/24 08/20/24 08/20/24 Range/Units 16:44 16:44 16:44 Sodium Potassium Chloride 102 Carbon Dioxide Cancelled 9 L BUN Cancelled 8 L D Creatinine Cancelled Glucose Calcium AST ALT Alkaline Phosphatase Total Protein Albumin 08/20/24 08/20/24 08/20/24 Range/Units 16:44 16:44 16:44 Sodium Potassium Chloride Carbon Dioxide BUN Creatinine 0.62 L Glucose Cancelled 291 H Calcium Cancelled 9.0 AST Cancelled ALT Alkaline Phosphatase Total Protein Albumin 08/20/24 08/20/24 08/20/24 Range/Units 16:44 16:44 16:44 Sodium Potassium Chloride Carbon Dioxide BUN Creatinine Glucose Calcium AST 26 ALT Cancelled 22 Alkaline Phosphatase Cancelled 135 H Total Protein Cancelled Albumin 08/20/24 08/20/24 08/20/24 Range/Units 16:44 16:44 20:03 Sodium 134 L Potassium 4.0 Chloride 106 Carbon Dioxide 10 L BUN 5 L Creatinine 0.50 L Glucose 255 H Calcium 8.8 AST 24 ALT 20 Alkaline Phosphatase 104 Total Protein 7.4 6.6 Albumin Cancelled 4.6 4.0 08/21/24 08/21/24 08/21/24 Range/Units 01:23 04:32 08:36 Sodium 134 L 132 L 132 L Potassium 3.4 4.1 4.0 Chloride 106 106 103 Carbon Dioxide 15 L 17 L 17 L BUN 5 L 4 L 3 L Creatinine 0.47 L 0.49 L 0.45 L Glucose 180 H 201 H 235 H Calcium 8.9 8.7 8.7 AST 23 ALT 19 Alkaline Phosphatase 79 Total Protein 6.1 L Albumin 3.5 Intake and Output 08/20/24 08/21/24 08/21/24 23:59 07:59 15:59 Intake Total 634.7 696.6 1042.9 Output Total 450 650 400 Balance 184.7 46.6 642.9 Intake: IV 634.7 576.6 1042.9 Insulin Human Regular (*Bkc) 32.2 9.1 2.9 100 units In Sodium Chloride 0. 9% IV 99 ml @ 1 UNITS/HR 1 mls/ hr IV CONT .Q24H [facility] Rx#: [id number] KCl 20 Meq/D5/0.45% Sod Chl 1, 365 567.5 932.5 000 ml @ 150 mls/hr IV CONT . Q6H40M [facility] Rx#:[id number] Sodium Chloride 0.9% IV 1,000 237.5 107.5 ml @ 150 mls/hr IV CONT .Q6H40M [facility] Rx#:[id number] Oral 120 Output: Urine 450 650 400 Patient Weight 08/21/24 23:59 Weight 69.4 kg
[2024-08-21] MEDS: PANTOPRAZOLE SODIUM IV 40 MG VIAL IV PUSH (11:06)
[2024-08-21 13:51] LABS: Anion Gap 8 mmol/L (4-12); Blood Urea Nitrogen 3 mg/dL (9-20); Calcium 8.3 mg/dL (8.4-10.2); Carbon Dioxide 17 mmol/L (22-30); Chloride 104 mmol/L (98-107); Estimated CRCL calculation 153 ml/min; Estimated Glomerular Filt Rate > 60; Glucose 241 mg/dL (65-110); Potassium 3.4 mmol/L (3.4-5.0); Sodium 129 mmol/L (137-145)
--- NOTE | 2024-08-21 14:34 | PCCDE ---
Discussed patient status with Poonam Rodrigues RD, this morning regarding challenges with new med (Invokana) that was unaffordable for patient, therefore not taking. Patient in need of affordable options for insulin or vouchers, etc. Asha Castellanos, Endocrinology WAREHOUSE SUPERVISOR, contacted regarding options. Asha provided us with a website for [employer] for reduced cost insulin for uninsured patients. This was provided to Shaina Khan (ICU nurse), Katy Blanco (Infantry Weapons Officer), and others to facilitate obtaining the prescription card.
[2024-08-21] MEDS: INSULIN GLARGINE (*BKC) 100 UNITS/ML 24 UNITS SUB-Q (14:37)
[2024-08-21] MEDS: INSULIN ASPART (*BKC) 100 UNITS/ML SUB-Q ×2 (17:13→19:57)
--- NOTE | 2024-08-21 17:26 | PM.IMPN ---
Progress Note: A&P Assessment and Plan (1) DKA (diabetic ketoacidosis): Qualifiers: Diabetes mellitus complication detail: without coma Diabetes mellitus type: other specified (including DEL) Qualified Code(s): E13.10 - Other specified diabetes mellitus with ketoacidosis without coma Code(s): E11.10 - Type 2 diabetes mellitus with ketoacidosis without coma Status: Acute Assessment and Plan: -epigastric pain, nausea and elevated blood sugar on presentation -only taking metformin, ran out Invokana and insulin discontinued previously -Prior history of DKA in the past as well -symptoms worsening over 2 weeks -initial metabolic panel with anion gap of 23, carbon dioxide 9, beta hydroxybutyrate 9.11, pH 7.286 with significant attempted respiratory compensation with pCO2 of 24.6 -insulin drip without bolus given in the ER due to blood sugar in the 200s -potassium was 3.8 initially, potassium containing fluids started and oral potassium 60 mEq given -repeat metabolic panel anion gap 18, carbon dioxide 10, glucose 255--continue insulin drip and every 4 hour metabolic panels -ICU attending aware of patient in ICU, will see in the morning (2) Abnormal ECG: Code(s): R94.31 - Abnormal electrocardiogram [ECG] [EKG] Status: Acute Assessment and Plan: -Initial EKG in ER showed ST elevation in Leads 1, 2, AVF, AVL, V5 and V6 with ST depression in AVR -Initial troponin normal -Second EKG shows ST elevation in Leads 3, AVF, V2, V3, V4, V5, V6 with ST depression in Lead 1 and AVL -Repeat troponin pending (3) strawhat sizer needed: Code(s): Z75.8 - Other problems related to medical facilities and other health care Status: Chronic Assessment and Plan: -[place] speaking patient (4) Hyperlipidemia: Qualifiers: Hyperlipidemia type: mixed hyperlipidemia Qualified Code(s): E78.2 - Mixed hyperlipidemia Code(s): E78.5 - Hyperlipidemia, unspecified Status: Chronic Assessment and Plan: -Previously on simvastatin, ordered routine lipid panel -Elevated triglycerides, total cholesterol and LDL (5) Depression with anxiety: Code(s): F41.8 - Other specified anxiety disorders Status: Chronic Assessment and Plan: -Stable (6) Epigastric pain: Code(s): R10.13 - Epigastric pain Status: Acute Assessment and Plan: -Abnormal EKGs (Early Repolarization) with negative troponin -Likely due to DKA/GI cause rather than cardiac related -Lipase normal, bilirubin normal, LFTs normal -Associated with nausea, no vomiting and improved without pain medications since arrival to ER Plan patient remain on IV insulin, repeat BMP is ordered to check for anio gap, discuss with the combination operator, once the the gap is closed, will start on long active insulin and monitor, patient will be seen by tobacco prevention health educator and further recommendation to follow, patient has significant EKG is changes, seen by electric truck operator suspect the EKG changes are 2/2 metabolic acidosis due to DKA. will monitor, once clinically stable, will transfer out of ICU. Admit to ICU Full Code Subjective Date/time seen: 08/21/24 17:26 Interval history: Shortness of breath x 2 weeks, nausea, epigastric pain, DKA Narrative: This is a 44-year-old male patient who was admitted to the hospital for DKA. Patient reports that he can no longer afford his previously prescribed Invokana since the cost went up from about $120 a month to over $800 a month. Additionally, he no longer is taking any insulin. He is only using metformin 1000 mg twice a day. Patient stated that he had epigastric pain and nausea earlier as well. He denies chest pain or fever. Denies dysuria. Denies any wounds or injuries. In the emergency department lab work revealed acidosis with a venous pH of 7.286 with pCO2 of 24.6 and HC03 of 11.5. Chemistry panel had carbon dioxide of 9 anion and serum glucose of 291. Patient received 2 L of IV fluids. Hemoglobin A1c was 13.4. Urinalysis with 3+ glucose and 4+ ketones. Beta hydroxybutyrate was 9.11. Potassium level was 3.8. ER initiated insulin drip at 6.5 units per hour, no bolus because glucose level was below 300. IV fluids with potassium ordered. Oral potassium 60 mEq given at the initiation of insulin drip. Patient admitted to the ICU for DKA protocol including hourly fingerstick glucose and titration of drip as well as IV fluids with dextrose if glucose is below 250. Repeat metabolic panels ordered every 4-6 hours. Will recheck VBG, Beta-hydroxybutyrate, magnesium, renal function panel, CMP and CBC as part of AM labs in the morning. Also, due to shortness of breath for 2 weeks, considered CTA to rule out PE but patient not tachycardic or hypoxic. His increased respirations are due to compensation attempts against metabolic acidosis as he has been in DKA for a while (it seems.) We decided to just check CXR in the morning when Radiology comes to the ICU. Will check D-Dimer, BNP with morning labs. Repeat metabolic panel shows carbon dioxide still very low at 10 with glucose at 255. Second troponin was negative. EKGs have ST segment changes (likely early repolarization) but they are definitely different from each other and different from prior EKG on file. patient remain on IV insulin, repeat BMP is ordered to check for anio gap, discuss with the combination operator, once the the gap is closed, will start on long active insulin and monitor, patient will be seen by tobacco prevention health educator and further recommendation to follow, patient has significant EKG is changes, seen by electric truck operator suspect the EKG changes are 2/2 metabolic acidosis due to DKA. will monitor, once clinically stable, will transfer out of ICU. Review of Systems Review of Systems: All systems reviewed & are unremarkable except as noted in HPI and below Exam Narrative: Patient is comfortable, NAD HEENT: eyes are clear and none icteric LUNGS:CTA HEART: RR S1S2 ABD: BS+, Soft and nontender Lower extremities: no edema SKIN: nonjaundiced Neuro: grossly intact. Objective Data Vital Signs Vital Signs: Vital Signs - 24 hr 08/20/24 18:38 08/20/24 20:00 08/20/24 20:00 Temperature 36.8 C 36.8 C Pulse Rate 76 72 Respiratory Rate 19 16 Blood Pressure 106/79 101/78 Pulse Oximetry 99 98 Oxygen Delivery Room Air 08/20/24 20:00 08/20/24 22:00 08/20/24 22:00 Temperature Pulse Rate 71 73 73 Respiratory Rate 16 Blood Pressure 110/82 Pulse Oximetry 98 Oxygen Delivery 08/21/24 00:00 08/21/24 00:00 08/21/24 00:00 Temperature 36.6 C Pulse Rate 72 73 Respiratory Rate 16 Blood Pressure 90/66 L Pulse Oximetry 99 Oxygen Delivery Room Air 08/21/24 02:00 08/21/24 02:00 08/21/24 04:00 Temperature Pulse Rate 67 67 72 Respiratory Rate 15 Blood Pressure 109/78 Pulse Oximetry 97 Oxygen Delivery 08/21/24 04:00 08/21/24 06:00 08/21/24 06:04 Temperature 36.3 C L Pulse Rate 67 61 65 Respiratory Rate 15 15 Blood Pressure 90/63 L 106/83 Pulse Oximetry 98 98 Oxygen Delivery 08/21/24 08:00 08/21/24 08:00 08/21/24 10:00 Temperature 36.7 C Pulse Rate 65 63 98 Respiratory Rate 14 15 Blood Pressure 106/63 104/74 Pulse Oximetry 98 94 Oxygen Delivery 08/21/24 10:00 08/21/24 12:00 08/21/24 12:00 Temperature 36.6 C Pulse Rate 79 78 72 Respiratory Rate 19 Blood Pressure 102/66 Pulse Oximetry 97 Oxygen Delivery 08/21/24 14:00 08/21/24 14:00 08/21/24 14:00 Temperature 36.7 C Pulse Rate 78 75 68 Respiratory Rate 16 18 Blood Pressure 111/72 111/72 Pulse Oximetry 99 97 Oxygen Delivery 08/21/24 16:00 08/21/24 16:00 Temperature Pulse Rate 70 70 Respiratory Rate 16 Blood Pressure 107/75 Pulse Oximetry 96 Oxygen Delivery Intake/Output Intake/Output: Intake & Output 08/18/24 08/19/24 08/20/24 08/21/24 23:59 23:59 23:59 23:59 Intake Total 634.7 4197.7 Output Total 450 1850 Balance 184.7 2347.7 Meds/Results Medications: Active Medications Generic Name Dose Route Start Last Admin Trade Name Freq PRN Reason Stop Dose Admin Acetaminophen 650 mg 08/20/24 17:39 Acetaminophen 325 Mg Tablet PO Q4H PRN Mild Pain (1-3) or Fever Dextrose 12.5 gm 08/20/24 17:28 Dextrose 50% 25 Gm/50 Ml Syringe IV PUSH PRN PRN Hypoglycemia Protocol Dextrose 12.5 gm 08/21/24 14:07 Dextrose 50% 25 Gm/50 Ml Syringe IV PUSH PRN PRN Hypoglycemia Protocol Enoxaparin Sodium 40 mg 08/21/24 09:00 08/21/24 08:39 Enoxaparin 40 Mg/0.4 Ml Syringe SUB-Q 40 mg DAILY PORTILLO Administration Glucagon 1 mg 08/20/24 17:28 Glucagon For Inj 1 Mg Vial IM PRN PRN Hypoglycemia Protocol Glucagon 1 mg 08/21/24 14:07 Glucagon For Inj 1 Mg Vial IM PRN PRN Hypoglycemia Protocol Glucose 15 gm 08/20/24 17:28 Glucose Oral Gel 15 Gm Of Glucse In 37.5 Gm Tube PO PRN PRN Hypoglycemia Protocol Glucose 15 gm 08/21/24 14:07 Glucose Oral Gel 15 Gm Of Glucse In 37.5 Gm Tube PO PRN PRN Hypoglycemia Protocol Dextrose 1,000 mls @ 100 mls/hr 08/20/24 17:28 Dextrose 5% 1,000 Ml IVPB PRN PRN Hypoglycemia Protocol Dextrose 1,000 mls @ 100 mls/hr 08/21/24 14:07 Dextrose 5% 1,000 Ml IVPB PRN PRN Hypoglycemia Protocol Insulin Aspart 4 - 8 units 08/21/24 17:00 08/21/24 17:13 Insulin Aspart (*Bkc) 100 Units/Ml SUB-Q 4 units TIDWM PORTILLO Administration Protocol Insulin Aspart 2 - 4 units 08/21/24 21:00 Insulin Aspart (*Bkc) 100 Units/Ml SUB-Q HS PORTILLO Protocol Insulin Glargine 24 units 08/22/24 09:00 Insulin Glargine (*Bkc) 100 Units/Ml SUB-Q DAILY PORTILLO Ondansetron HCl 4 mg 08/20/24 17:39 Ondansetron Inj 4 Mg/2 Ml Vial IV PUSH Q4H PRN Nausea Pantoprazole Sodium 40 mg 08/22/24 09:00 Pantoprazole Sodium Iv 40 Mg Vial IV PUSH QAM PORTILLO Perflutren Lipid Microsphere 0 ml 08/21/24 00:13 Perflutren Lipid Microspheres 1.5 Ml Vial Diluted To 10 Ml Total Volume IV PUSH 08/24/24 00:13 ONCE PRN adequate visualization Protocol Radiology Results: ITS Impressions Chest X-Ray 08/21/24 05:56 Impression: Clear lungs. Low lung volumes. Labs Labs: Laboratory Results - last 24 hr 08/20/24 08/20/24 08/20/24 16:44 16:53 17:44 WBC RBC Hgb Hct MCV MCH MCHC RDW Plt Count MPV Immature Gran % (Auto) Neut % (Auto) Lymph % (Auto) [place] % (Auto) Eos % (Auto) Baso % (Auto) Lymph # (Auto) [place] # (Auto) Eos # (Auto) Baso # (Auto) Abs Immat Gran (auto) Absolute Neuts (auto) Absolute Nucleated RBC Nucleated RBC % D-Dimer VBG pH VBG pCO2 VBG pO2 VBG HCO3 O2 Delivery Device O2 Liters/Min FiO2 Sodium Potassium Chloride Carbon Dioxide Anion Gap BUN Creatinine Estim Creat Clear Calc Estimated GFR Glucose POC Capillary Glucose Hemoglobin A1c 13.4 H Cancelled Calcium Phosphorus Magnesium Total Bilirubin AST ALT Alkaline Phosphatase Total Creatine Kinase Troponin I < 0.012 NT-Pro-B Natriuret Pep Total Protein Albumin Triglycerides Cholesterol LDL Cholesterol Direct HDL Direct Lipase Beta-Hydroxybutyrate/Acetoacetate 9.11 H Nasal MRSA (PCR) Not detected 08/20/24 08/20/24 08/20/24 18:12 18:38 19:56 WBC RBC Hgb Hct MCV MCH MCHC RDW Plt Count MPV Immature Gran % (Auto) Neut % (Auto) Lymph % (Auto) [place] % (Auto) Eos % (Auto) Baso % (Auto) Lymph # (Auto) [place] # (Auto) Eos # (Auto) Baso # (Auto) Abs Immat Gran (auto) Absolute Neuts (auto) Absolute Nucleated RBC Nucleated RBC % D-Dimer VBG pH VBG pCO2 VBG pO2 VBG HCO3 O2 Delivery Device O2 Liters/Min FiO2 Sodium Potassium Chloride Carbon Dioxide Anion Gap BUN Creatinine Estim Creat Clear Calc Estimated GFR Glucose POC Capillary Glucose 286 H 314 H 237 H Hemoglobin A1c Calcium Phosphorus Magnesium Total Bilirubin AST ALT Alkaline Phosphatase Total Creatine Kinase Troponin I NT-Pro-B Natriuret Pep Total Protein Albumin Triglycerides Cholesterol LDL Cholesterol Direct HDL Direct Lipase Beta-Hydroxybutyrate/Acetoacetate Nasal MRSA (PCR) 08/20/24 08/20/24 08/20/24 20:03 20:03 20:03 WBC RBC Hgb Hct MCV MCH MCHC RDW Plt Count MPV Immature Gran % (Auto) Neut % (Auto) Lymph % (Auto) [place] % (Auto) Eos % (Auto) Baso % (Auto) Lymph # (Auto) [place] # (Auto) Eos # (Auto) Baso # (Auto) Abs Immat Gran (auto) Absolute Neuts (auto) Absolute Nucleated RBC Nucleated RBC % D-Dimer VBG pH VBG pCO2 VBG pO2 VBG HCO3 O2 Delivery Device O2 Liters/Min FiO2 Sodium 134 L Potassium 4.0 Chloride 106 Carbon Dioxide 10 L Anion Gap 18 H BUN 5 L Creatinine 0.50 L Estim Creat Clear Calc 123 Estimated GFR > 60 Glucose 255 H POC Capillary Glucose Hemoglobin A1c Calcium 8.8 Phosphorus Magnesium Total Bilirubin 0.9 AST 24 ALT 20 Alkaline Phosphatase 104 Total Creatine Kinase Cancelled 184 H Troponin I Cancelled < 0.012 NT-Pro-B Natriuret Pep Total Protein 6.6 Albumin 4.0 Triglycerides 261 H Cholesterol 232 H LDL Cholesterol Direct 118 HDL Direct 55 Lipase Cancelled Beta-Hydroxybutyrate/Acetoacetate Nasal MRSA (PCR) 08/20/24 08/20/24 08/20/24 20:03 21:17 22:16 WBC RBC Hgb Hct MCV MCH MCHC RDW Plt Count MPV Immature Gran % (Auto) Neut % (Auto) Lymph % (Auto) [place] % (Auto) Eos % (Auto) Baso % (Auto) Lymph # (Auto) [place] # (Auto) Eos # (Auto) Baso # (Auto) Abs Immat Gran (auto) Absolute Neuts (auto) Absolute Nucleated RBC Nucleated RBC % D-Dimer VBG pH VBG pCO2 VBG pO2 VBG HCO3 O2 Delivery Device O2 Liters/Min FiO2 Sodium Potassium Chloride Carbon Dioxide Anion Gap BUN Creatinine Estim Creat Clear Calc Estimated GFR Glucose POC Capillary Glucose 249 H 259 H Hemoglobin A1c Calcium Phosphorus Magnesium Total Bilirubin AST ALT Alkaline Phosphatase Total Creatine Kinase Troponin I NT-Pro-B Natriuret Pep Total Protein Albumin Triglycerides Cholesterol LDL Cholesterol Direct HDL Direct Lipase 89 Beta-Hydroxybutyrate/Acetoacetate Nasal MRSA (PCR) 08/20/24 08/21/24 08/21/24 23:02 00:09 01:12 WBC RBC Hgb Hct MCV MCH MCHC RDW Plt Count MPV Immature Gran % (Auto) Neut % (Auto) Lymph % (Auto) [place] % (Auto) Eos % (Auto) Baso % (Auto) Lymph # (Auto) [place] # (Auto) Eos # (Auto) Baso # (Auto) Abs Immat Gran (auto) Absolute Neuts (auto) Absolute Nucleated RBC Nucleated RBC % D-Dimer VBG pH VBG pCO2 VBG pO2 VBG HCO3 O2 Delivery Device O2 Liters/Min FiO2 Sodium Potassium Chloride Carbon Dioxide Anion Gap BUN Creatinine Estim Creat Clear Calc Estimated GFR Glucose POC Capillary Glucose 194 H 188 H 195 H Hemoglobin A1c Calcium Phosphorus Magnesium Total Bilirubin AST ALT Alkaline Phosphatase Total Creatine Kinase Troponin I NT-Pro-B Natriuret Pep Total Protein Albumin Triglycerides Cholesterol LDL Cholesterol Direct HDL Direct Lipase Beta-Hydroxybutyrate/Acetoacetate Nasal MRSA (PCR) 08/21/24 08/21/24 08/21/24 01:23 02:54 04:02 WBC RBC Hgb Hct MCV MCH MCHC RDW Plt Count MPV Immature Gran % (Auto) Neut % (Auto) Lymph % (Auto) [place] % (Auto) Eos % (Auto) Baso % (Auto) Lymph # (Auto) [place] # (Auto) Eos # (Auto) Baso # (Auto) Abs Immat Gran (auto) Absolute Neuts (auto) Absolute Nucleated RBC Nucleated RBC % D-Dimer VBG pH VBG pCO2 VBG pO2 VBG HCO3 O2 Delivery Device O2 Liters/Min FiO2 Sodium 134 L Potassium 3.4 Chloride 106 Carbon Dioxide 15 L Anion Gap 13 H BUN 5 L Creatinine 0.47 L Estim Creat Clear Calc 130 Estimated GFR > 60 Glucose 180 H POC Capillary Glucose 212 H 211 H Hemoglobin A1c Calcium 8.9 Phosphorus Magnesium Total Bilirubin AST ALT Alkaline Phosphatase Total Creatine Kinase Troponin I NT-Pro-B Natriuret Pep Total Protein Albumin Triglycerides Cholesterol LDL Cholesterol Direct HDL Direct Lipase Beta-Hydroxybutyrate/Acetoacetate Nasal MRSA (PCR) 08/21/24 08/21/24 08/21/24 04:30 04:32 05:54 WBC 4.5 RBC 4.56 L Hgb 13.9 L Hct 38.8 L MCV 85.1 MCH 30.5 MCHC 35.8 RDW 12.6 Plt Count 163 MPV 10.0 Immature Gran % (Auto) 0.2 Neut % (Auto) 54.2 Lymph % (Auto) 34.8 [place] % (Auto) 9.7 H Eos % (Auto) 0.9 Baso % (Auto) 0.2 Lymph # (Auto) 1.55 [place] # (Auto) 0.4 Eos # (Auto) 0.0 Baso # (Auto) 0.0 Abs Immat Gran (auto) 0.01 Absolute Neuts (auto) 2.4 Absolute Nucleated RBC 0.000 Nucleated RBC % 0.0 D-Dimer 0.52 H VBG pH 7.380 VBG pCO2 32.1 L VBG pO2 85.5 H VBG HCO3 18.6 L O2 Delivery Device Not Reportable O2 Liters/Min Not Reportable FiO2 21 Sodium 132 L Potassium 4.1 Chloride 106 Carbon Dioxide 17 L Anion Gap 9 BUN 4 L Creatinine 0.49 L Estim Creat Clear Calc 125 Estimated GFR > 60 Glucose 201 H POC Capillary Glucose 197 H Hemoglobin A1c Calcium 8.7 Phosphorus 2.0 L Magnesium 1.7 Total Bilirubin 0.8 AST 23 ALT 19 Alkaline Phosphatase 79 Total Creatine Kinase Troponin I < 0.012 NT-Pro-B Natriuret Pep < 20 Total Protein 6.1 L Albumin 3.5 Triglycerides Cholesterol LDL Cholesterol Direct HDL Direct Lipase Beta-Hydroxybutyrate/Acetoacetate 2.17 H Nasal MRSA (PCR) 08/21/24 08/21/24 08/21/24 06:38 07:34 08:32 WBC RBC Hgb Hct MCV MCH MCHC RDW Plt Count MPV Immature Gran % (Auto) Neut % (Auto) Lymph % (Auto) [place] % (Auto) Eos % (Auto) Baso % (Auto) Lymph # (Auto) [place] # (Auto) Eos # (Auto) Baso # (Auto) Abs Immat Gran (auto) Absolute Neuts (auto) Absolute Nucleated RBC Nucleated RBC % D-Dimer VBG pH VBG pCO2 VBG pO2 VBG HCO3 O2 Delivery Device O2 Liters/Min FiO2 Sodium Potassium Chloride Carbon Dioxide Anion Gap BUN Creatinine Estim Creat Clear Calc Estimated GFR Glucose POC Capillary Glucose 236 H 221 H Hemoglobin A1c Calcium Phosphorus Magnesium Total Bilirubin AST ALT Alkaline Phosphatase Total Creatine Kinase Troponin I < 0.012 NT-Pro-B Natriuret Pep Total Protein Albumin Triglycerides Cholesterol LDL Cholesterol Direct HDL Direct Lipase Beta-Hydroxybutyrate/Acetoacetate Nasal MRSA (PCR) 08/21/24 08/21/24 08/21/24 08:35 08:36 09:35 WBC RBC Hgb Hct MCV MCH MCHC RDW Plt Count MPV Immature Gran % (Auto) Neut % (Auto) Lymph % (Auto) [place] % (Auto) Eos % (Auto) Baso % (Auto) Lymph # (Auto) [place] # (Auto) Eos # (Auto) Baso # (Auto) Abs Immat Gran (auto) Absolute Neuts (auto) Absolute Nucleated RBC Nucleated RBC % D-Dimer VBG pH VBG pCO2 VBG pO2 VBG HCO3 O2 Delivery Device O2 Liters/Min FiO2 Sodium 132 L Potassium 4.0 Chloride 103 Carbon Dioxide 17 L Anion Gap 12 BUN 3 L Creatinine 0.45 L Estim Creat Clear Calc 138 Estimated GFR > 60 Glucose 235 H POC Capillary Glucose 251 H 195 H Hemoglobin A1c Calcium 8.7 Phosphorus Magnesium Total Bilirubin AST ALT Alkaline Phosphatase Total Creatine Kinase Troponin I NT-Pro-B Natriuret Pep Total Protein Albumin Triglycerides Cholesterol LDL Cholesterol Direct HDL Direct Lipase Beta-Hydroxybutyrate/Acetoacetate Nasal MRSA (PCR) 08/21/24 08/21/24 08/21/24 10:30 11:35 12:44 WBC RBC Hgb Hct MCV MCH MCHC RDW Plt Count MPV Immature Gran % (Auto) Neut % (Auto) Lymph % (Auto) [place] % (Auto) Eos % (Auto) Baso % (Auto) Lymph # (Auto) [place] # (Auto) Eos # (Auto) Baso # (Auto) Abs Immat Gran (auto) Absolute Neuts (auto) Absolute Nucleated RBC Nucleated RBC % D-Dimer VBG pH VBG pCO2 VBG pO2 VBG HCO3 O2 Delivery Device O2 Liters/Min FiO2 Sodium Potassium Chloride Carbon Dioxide Anion Gap BUN Creatinine Estim Creat Clear Calc Estimated GFR Glucose POC Capillary Glucose 253 H 241 H 244 H Hemoglobin A1c Calcium Phosphorus Magnesium Total Bilirubin AST ALT Alkaline Phosphatase Total Creatine Kinase Troponin I NT-Pro-B Natriuret Pep Total Protein Albumin Triglycerides Cholesterol LDL Cholesterol Direct HDL Direct Lipase Beta-Hydroxybutyrate/Acetoacetate Nasal MRSA (PCR) 08/21/24 08/21/24 08/21/24 13:30 13:37 14:27 WBC RBC Hgb Hct MCV MCH MCHC RDW Plt Count MPV Immature Gran % (Auto) Neut % (Auto) Lymph % (Auto) [place] % (Auto) Eos % (Auto) Baso % (Auto) Lymph # (Auto) [place] # (Auto) Eos # (Auto) Baso # (Auto) Abs Immat Gran (auto) Absolute Neuts (auto) Absolute Nucleated RBC Nucleated RBC % D-Dimer VBG pH VBG pCO2 VBG pO2 VBG HCO3 O2 Delivery Device O2 Liters/Min FiO2 Sodium 129 L Potassium 3.4 Chloride 104 Carbon Dioxide 17 L Anion Gap 8 BUN 3 L Creatinine 0.40 L Estim Creat Clear Calc 153 Estimated GFR > 60 Glucose 241 H POC Capillary Glucose 236 H 250 H Hemoglobin A1c Calcium 8.3 L Phosphorus Magnesium Total Bilirubin AST ALT Alkaline Phosphatase Total Creatine Kinase Troponin I NT-Pro-B Natriuret Pep Total Protein Albumin Triglycerides Cholesterol LDL Cholesterol Direct HDL Direct Lipase Beta-Hydroxybutyrate/Acetoacetate Nasal MRSA (PCR) 08/21/24 08/21/24 15:24 16:13 WBC RBC Hgb Hct MCV MCH MCHC RDW Plt Count MPV Immature Gran % (Auto) Neut % (Auto) Lymph % (Auto) [place] % (Auto) Eos % (Auto) Baso % (Auto) Lymph # (Auto) [place] # (Auto) Eos # (Auto) Baso # (Auto) Abs Immat Gran (auto) Absolute Neuts (auto) Absolute Nucleated RBC Nucleated RBC % D-Dimer VBG pH VBG pCO2 VBG pO2 VBG HCO3 O2 Delivery Device O2 Liters/Min FiO2 Sodium Potassium Chloride Carbon Dioxide Anion Gap BUN Creatinine Estim Creat Clear Calc Estimated GFR Glucose POC Capillary Glucose 245 H 230 H Hemoglobin A1c Calcium Phosphorus Magnesium Total Bilirubin AST ALT Alkaline Phosphatase Total Creatine Kinase Troponin I NT-Pro-B Natriuret Pep Total Protein Albumin Triglycerides Cholesterol LDL Cholesterol Direct HDL Direct Lipase Beta-Hydroxybutyrate/Acetoacetate Nasal MRSA (PCR) Quality VTE Prophylaxis VTE prophylaxis: pharmacologic ordered
[2024-08-22] VITALS (10 sets, daily range): BP systolic 96–110; BP diastolic 58–74; PULSE 64–82; RESP 16–18; TEMP 36.4–36.9; O2SAT 95–99
[2024-08-22 05:14] LABS: Hematocrit 39.4 % (42.0-52.0); Hemoglobin 13.9 g/dL (14.0-18.0); Immature Granulocyte Percent A 0.3 % (0-0.5); Lymphocytes Absolute Auto 1.45 K/mm3 (0.9-3.2); Mean Corpuscular HGB Conc 35.3 g/dl (32-36); Mean Corpuscular Hemoglobin 30.3 pg (26-34); Mean Corpuscular Volume 86.0 fl (80-100); Nucleated Red Blood Cells Absolute Auto 0.000 K/mm3 (0.0-0.012); Nucleated Red Blood Cells Perc 0.0 % (0.0-0.2); Platelet Count Result 153 k/mm3 (150-375); Red Blood Count 4.58 M/mm3 (4.6-6.20); White Blood Count 3.8 K/mm3 (4.5-10.0)
[2024-08-22 05:29] LABS: Anion Gap 7 mmol/L (4-12); Blood Urea Nitrogen 5 mg/dL (9-20); Calcium 8.4 mg/dL (8.4-10.2); Carbon Dioxide 22 mmol/L (22-30); Chloride 103 mmol/L (98-107); Estimated CRCL calculation 130 ml/min; Estimated Glomerular Filt Rate > 60; Glucose 334 mg/dL (65-110); Magnesium 1.9 mg/dL (1.6-2.3); Potassium 3.8 mmol/L (3.4-5.0); Sodium 132 mmol/L (137-145)
[2024-08-22] MEDS: ENOXAPARIN 40 MG/0.4 ML SYRINGE SUB-Q (07:43)
[2024-08-22] MEDS: PANTOPRAZOLE SODIUM IV 40 MG VIAL IV PUSH (07:43)
[2024-08-22] MEDS: INSULIN GLARGINE (*BKC) 100 UNITS/ML 24 UNITS SUB-Q (07:43)
[2024-08-22] MEDS: INSULIN ASPART (*BKC) 100 UNITS/ML SUB-Q ×5 (07:43→20:42)
--- NOTE | 2024-08-22 09:03 | P.PNIM_ITS ---
Progress Note: A&P Assessment and Plan (1) DKA (diabetic ketoacidosis): Qualifiers: Diabetes mellitus complication detail: without coma Diabetes mellitus type: other specified (including DEL) Qualified Code(s): E13.10 - Other specified diabetes mellitus with ketoacidosis without coma Code(s): E11.10 - Type 2 diabetes mellitus with ketoacidosis without coma Status: Acute Assessment and Plan: 08/20: Patient presented with nausea, vomiting, epigastric pain, elevated blood sugars. In the ER was found to be in diabetic ketoacidosis -patient has only been taking his metformin 1000 mg twice daily, patient is NOT taking his SGLT 2 inhibitor, Invokana, as he can no longer afford it as the cost has gone up from 120 dollars a month to over 800 dollars a month. -Patient used to be previously on insulin in the past but no longer insulin dependent -consult in service educator and dietitian to evaluate the patient -hemoglobin A1c is 13.4 this admission patient -anion gap has closed and patient has been transition to subcutaneous insulin. -his blood sugars still elevated in 200-300 range. I will add with meal insulin. Continue Lantus. Change sliding scale to moderate -discussed with patient and requested to avoid eating outside food at this time -resume metformin (2) Type 2 diabetes mellitus: Code(s): E11.9 - Type 2 diabetes mellitus without complications Status: Acute Assessment and Plan: As above (3) Abnormal ECG: Code(s): R94.31 - Abnormal electrocardiogram [ECG] [EKG] Status: Acute Assessment and Plan: EKG showed ST-T changes on multiple EKGs -troponin remained negative -Appreciate cardiology evaluation recommendations, EKG changes early repolarization, given that troponins are negative without any symptoms, no intervention at this time, Cardiology signed off -echocardiogram Summary 1. Complete two-dimensional, color flow and Doppler transthoracic echocardiogram is performed. 2. Left ventricular systolic function is normal, estimated at 50-55. 3. The left ventricular diastolic function is grade II diastolic dysfunction. 4. Left atrial chamber dimension is mildly enlarged. 5. There is trace aortic valve regurgitation. 6. There is mild tricuspid valve regurgitation. 7. No pulmonary hypertension, estimated pulmonary arterial systolic pressure is 29 mmHg. 8. There is mild pulmonic regurgitation. (4) Hyperlipidemia: Qualifiers: Hyperlipidemia type: mixed hyperlipidemia Qualified Code(s): E78.2 - Mixed hyperlipidemia Code(s): E78.5 - Hyperlipidemia, unspecified Status: Chronic Assessment and Plan: Patient on simvastatin at home, -will restart when he starts taking p.o. (5) Depression with anxiety: Code(s): F41.8 - Other specified anxiety disorders Status: Chronic Assessment and Plan: Patient is not on any depression anxiety medications at home Plan DVT prophylaxis: Lovenox Stress ulcer prophylaxis: On Protonix Nutrition: Tolerating p.o. diet Code Status: Full code Subjective Date/time seen: 08/22/24 Overnight events reviewed. Afebrile Tolerating p.o. diet Denies any complaints. On room air. Other Vitals acceptable Patient denies fever, chest pain, shortness of breath, cough, nausea vomiting, abdominal pain,, diarrhea, headache or constipation.. All Other systems were reviewed and were negative Review of Systems Review of Systems: All systems reviewed & are unremarkable except as noted in HPI and below Exam Narrative: General: Pleasant gentleman in no acute distress HEENT:? Pupils equal reactive, sclera is clear, dry oral mucosa Neck:? Supple Respiratory:? Clear to auscultation bilaterally, no wheezing, adequate air entry Cardiac:? S1-S2 is normal, regular rate and rhythm Abdomen:? Soft, nontender, distended, normoactive bowel sounds Extremities:? No edema, palpable pedal pulses bilaterally Neuro: Patient is awake, alert, answers to questions appropriately, moves all extremities spontaneously and to commands Skin:? No lesions noted Psych:? Normal mentation and affect Objective Data Vital Signs Vital Signs: Vital Signs - 24 hr 08/21/24 10:00 08/21/24 10:08/21/24 12:00 Temperature 36.6 C Pulse Rate 98 79 78 Respiratory Rate 15 19 Blood Pressure 104/74 102/66 Pulse Oximetry 94 97 Oxygen Delivery Fraction of Inspired Oxygen 08/21/24 12:00 08/21/24 14:00 08/21/24 14:00 Temperature Pulse Rate 72 78 75 Respiratory Rate 16 Blood Pressure 111/72 Pulse Oximetry 99 Oxygen Delivery Fraction of Inspired Oxygen 08/21/24 14:00 08/21/24 16:00 08/21/24 16:00 Temperature 36.7 C Pulse Rate 68 70 70 Respiratory Rate 18 16 Blood Pressure 111/72 107/75 Pulse Oximetry 97 96 Oxygen Delivery Fraction of Inspired Oxygen 08/21/24 18:03 08/21/24 20:00 08/21/24 20:25 Temperature 36.6 C Pulse Rate 89 89 Respiratory Rate 15 Blood Pressure Pulse Oximetry 98 Oxygen Delivery Room Air Fraction of Inspired Oxygen 08/21/24 20:27 08/21/24 23:04 08/22/24 00:00 Temperature 36.8 C Pulse Rate 97 74 64 Respiratory Rate 20 19 Blood Pressure 107/78 Pulse Oximetry 99 98 Oxygen Delivery Room Air Fraction of Inspired Oxygen 21 08/22/24 00:00 08/22/24 03:54 08/22/24 04:00 Temperature Pulse Rate 68 68 73 Respiratory Rate 16 16 Blood Pressure Pulse Oximetry 98 98 Oxygen Delivery Room Air Room Air Fraction of Inspired Oxygen 08/22/24 08:00 08/22/24 08:29 08/22/24 08:49 Temperature 36.8 C Pulse Rate 75 75 82 Respiratory Rate 17 17 Blood Pressure 96/64 L Pulse Oximetry 96 96 97 Oxygen Delivery Room Air Room Air Fraction of Inspired Oxygen 21 Intake/Output Intake/Output: Intake & Output 08/19/24 08/20/24 08/21/24 08/22/24 23:59 23:59 23:59 23:59 Intake Total 634.7 4437.7 540 Output Total 450 2675 700 Balance 184.7 1762.7 -160 Meds/Results Medications: Active Medications Generic Name Dose Route Start Last Admin Trade Name Freq PRN Reason Stop Dose Admin Acetaminophen 650 mg 08/20/24 17:39 Acetaminophen 325 Mg Tablet PO Q4H PRN Mild Pain (1-3) or Fever Dextrose 12.5 gm 08/21/24 14:07 Dextrose 50% 25 Gm/50 Ml Syringe IV PUSH PRN PRN Hypoglycemia Protocol Enoxaparin Sodium 40 mg 08/21/24 09:00 08/22/24 07:43 Enoxaparin 40 Mg/0.4 Ml Syringe SUB-Q 40 mg DAILY PORTILLO Administration Glucagon 1 mg 08/21/24 14:07 Glucagon For Inj 1 Mg Vial IM PRN PRN Hypoglycemia Protocol Glucose 15 gm 08/21/24 14:07 Glucose Oral Gel 15 Gm Of Glucse In 37.5 Gm Tube PO PRN PRN Hypoglycemia Protocol Dextrose 1,000 mls @ 100 mls/hr 08/21/24 14:07 Dextrose 5% 1,000 Ml IVPB PRN PRN Hypoglycemia Protocol Insulin Aspart 5 units 08/22/24 08:00 08/22/24 07:58 Insulin Aspart (*Bkc) 100 Units/Ml 0.067 units/kg (5 units) 5 units SUB-Q Administration TIDWM [facility] Insulin Aspart 3 - 6 units 08/22/24 08:00 08/22/24 07:58 Insulin Aspart (*Bkc) 100 Units/Ml SUB-Q Not Given TIDWM [facility] Protocol Insulin Aspart 1 - 3 units 08/22/24 21:00 Insulin Aspart (*Bkc) 100 Units/Ml SUB-Q HS [facility] Protocol Insulin Glargine 24 units 08/22/24 09:00 08/22/24 07:43 Insulin Glargine (*Bkc) 100 Units/Ml SUB-Q 24 units DAILY PORTILLO Administration Ondansetron HCl 4 mg 08/20/24 17:39 Ondansetron Inj 4 Mg/2 Ml Vial IV PUSH Q4H PRN Nausea Pantoprazole Sodium 40 mg 08/22/24 09:00 08/22/24 07:43 Pantoprazole Sodium Iv 40 Mg Vial IV PUSH 40 mg QAM PORTILLO Administration Perflutren Lipid Microsphere 0 ml 08/21/24 00:13 Perflutren Lipid Microspheres 1.5 Ml Vial Diluted To 10 Ml Total Volume IV PUSH 08/24/24 00:13 ONCE PRN adequate visualization Protocol Radiology Results: ITS Impressions Chest X-Ray 08/21/24 05:56 Impression: Clear lungs. Low lung volumes. Labs Labs: Laboratory Results - last 24 hr 08/21/24 08/21/24 08/21/24 08:32 09:35 10:30 WBC RBC Hgb Hct MCV MCH MCHC RDW Plt Count MPV Immature Gran % (Auto) Neut % (Auto) Lymph % (Auto) [place] % (Auto) Eos % (Auto) Baso % (Auto) Lymph # (Auto) [place] # (Auto) Eos # (Auto) Baso # (Auto) Abs Immat Gran (auto) Absolute Neuts (auto) Absolute Nucleated RBC Nucleated RBC % Sodium Potassium Chloride Carbon Dioxide Anion Gap BUN Creatinine Estim Creat Clear Calc Estimated GFR Glucose POC Capillary Glucose 195 H 253 H Calcium Phosphorus Magnesium Troponin I < 0.012 08/21/24 08/21/24 08/21/24 11:35 12:44 13:30 WBC RBC Hgb Hct MCV MCH MCHC RDW Plt Count MPV Immature Gran % (Auto) Neut % (Auto) Lymph % (Auto) [place] % (Auto) Eos % (Auto) Baso % (Auto) Lymph # (Auto) [place] # (Auto) Eos # (Auto) Baso # (Auto) Abs Immat Gran (auto) Absolute Neuts (auto) Absolute Nucleated RBC Nucleated RBC % Sodium Potassium Chloride Carbon Dioxide Anion Gap BUN Creatinine Estim Creat Clear Calc Estimated GFR Glucose POC Capillary Glucose 241 H 244 H 236 H Calcium Phosphorus Magnesium Troponin I 08/21/24 08/21/24 08/21/24 13:37 14:27 15:24 WBC RBC Hgb Hct MCV MCH MCHC RDW Plt Count MPV Immature Gran % (Auto) Neut % (Auto) Lymph % (Auto) [place] % (Auto) Eos % (Auto) Baso % (Auto) Lymph # (Auto) [place] # (Auto) Eos # (Auto) Baso # (Auto) Abs Immat Gran (auto) Absolute Neuts (auto) Absolute Nucleated RBC Nucleated RBC % Sodium 129 L Potassium 3.4 Chloride 104 Carbon Dioxide 17 L Anion Gap 8 BUN 3 L Creatinine 0.40 L Estim Creat Clear Calc 153 Estimated GFR > 60 Glucose 241 H POC Capillary Glucose 250 H 245 H Calcium 8.3 L Phosphorus Magnesium Troponin I 08/21/24 08/21/24 08/21/24 16:13 17:11 19:54 WBC RBC Hgb Hct MCV MCH MCHC RDW Plt Count MPV Immature Gran % (Auto) Neut % (Auto) Lymph % (Auto) [place] % (Auto) Eos % (Auto) Baso % (Auto) Lymph # (Auto) [place] # (Auto) Eos # (Auto) Baso # (Auto) Abs Immat Gran (auto) Absolute Neuts (auto) Absolute Nucleated RBC Nucleated RBC % Sodium Potassium Chloride Carbon Dioxide Anion Gap BUN Creatinine Estim Creat Clear Calc Estimated GFR Glucose POC Capillary Glucose 230 H 227 H 288 H Calcium Phosphorus Magnesium Troponin I 08/22/24 08/22/24 04:56 07:23 WBC 3.8 L RBC 4.58 L Hgb 13.9 L Hct 39.4 L MCV 86.0 MCH 30.3 MCHC 35.3 RDW 12.6 Plt Count 153 MPV 10.3 Immature Gran % (Auto) 0.3 Neut % (Auto) 52.4 Lymph % (Auto) 38.1 [place] % (Auto) 8.1 Eos % (Auto) 0.8 Baso % (Auto) 0.3 Lymph # (Auto) 1.45 [place] # (Auto) 0.3 Eos # (Auto) 0.0 Baso # (Auto) 0.0 Abs Immat Gran (auto) 0.01 Absolute Neuts (auto) 2.0 Absolute Nucleated RBC 0.000 Nucleated RBC % 0.0 Sodium 132 L Potassium 3.8 Chloride 103 Carbon Dioxide 22 Anion Gap 7 BUN 5 L Creatinine 0.48 L Estim Creat Clear Calc 130 Estimated GFR > 60 Glucose 334 H POC Capillary Glucose 325 H Calcium 8.4 Phosphorus 3.3 Magnesium 1.9 Troponin I Quality VTE Prophylaxis VTE prophylaxis: pharmacologic ordered
--- NOTE | 2024-08-22 17:11 | PC.NURSE ---
This patient, Joseph Calvillo, was transferred to [[facility] ] on 08/22/24 at 1712. Personal belongings sent with patient. Report given to [DION Bolanos @ 2900 ]. Appropriate documentation sent with patient.
--- NOTE | 2024-08-22 17:20 | PC.NURSE ---
This patient, Joseph Calvillo, was received from ICU 7 on 08/22/24 at 1720. Patient/family oriented to unit policies and routines
--- NOTE | 2024-08-22 18:53 | PM.IMPN ---
Progress Note: A&P Assessment and Plan (1) DKA (diabetic ketoacidosis): Qualifiers: Diabetes mellitus complication detail: without coma Diabetes mellitus type: other specified (including DEL) Qualified Code(s): E13.10 - Other specified diabetes mellitus with ketoacidosis without coma Code(s): E11.10 - Type 2 diabetes mellitus with ketoacidosis without coma Status: Acute Assessment and Plan: -epigastric pain, nausea and elevated blood sugar on presentation -only taking metformin, ran out Invokana and insulin discontinued previously -Prior history of DKA in the past as well -symptoms worsening over 2 weeks -initial metabolic panel with anion gap of 23, carbon dioxide 9, beta hydroxybutyrate 9.11, pH 7.286 with significant attempted respiratory compensation with pCO2 of 24.6 -insulin drip without bolus given in the ER due to blood sugar in the 200s -potassium was 3.8 initially, potassium containing fluids started and oral potassium 60 mEq given -repeat metabolic panel anion gap 18, carbon dioxide 10, glucose 255--continue insulin drip and every 4 hour metabolic panels -ICU attending aware of patient in ICU, will see in the morning (2) Abnormal ECG: Code(s): R94.31 - Abnormal electrocardiogram [ECG] [EKG] Status: Acute Assessment and Plan: -Initial EKG in ER showed ST elevation in Leads 1, 2, AVF, AVL, V5 and V6 with ST depression in AVR -Initial troponin normal -Second EKG shows ST elevation in Leads 3, AVF, V2, V3, V4, V5, V6 with ST depression in Lead 1 and AVL -Repeat troponin pending (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(s): Z75.8 - Other problems related to medical facilities and other health care Status: Chronic Assessment and Plan: -[place] speaking patient (4) Hyperlipidemia: Qualifiers: Hyperlipidemia type: mixed hyperlipidemia Qualified Code(s): E78.2 - Mixed hyperlipidemia Code(s): E78.5 - Hyperlipidemia, unspecified Status: Chronic Assessment and Plan: -Previously on simvastatin, ordered routine lipid panel -Elevated triglycerides, total cholesterol and LDL (5) Depression with anxiety: Code(s): F41.8 - Other specified anxiety disorders Status: Chronic Assessment and Plan: -Stable (6) Epigastric pain: Code(s): R10.13 - Epigastric pain Status: Acute Assessment and Plan: -Abnormal EKGs (Early Repolarization) with negative troponin -Likely due to DKA/GI cause rather than cardiac related -Lipase normal, bilirubin normal, LFTs normal -Associated with nausea, no vomiting and improved without pain medications since arrival to ER Plan patient was taken off IV insulin, as repeat BMP showed anion gap is closed and x ray tech started the patient on long acting insulin will start on long active insulin and monitor, and metformin, patient was seen by music educator and was educated, patient had significant EKG is changes, seen by business systems analyst suspect the EKG changes are 2/2 metabolic acidosis due to DKA no further workup is needed . clinically stable, today transferred out of ICU. patient stats feeling better, patient is insturcted he must see an eye doctor as soon as possible for a diabetes eye exam. Admit to ICU Full Code Subjective Date/time seen: 08/22/24 18:53 Interval history: Shortness of breath x 2 weeks, nausea, epigastric pain, DKA Narrative: This is a 44-year-old male patient who was admitted to the hospital for DKA. Patient reports that he can no longer afford his previously prescribed Invokana since the cost went up from about $120 a month to over $800 a month. Additionally, he no longer is taking any insulin. He is only using metformin 1000 mg twice a day. Patient stated that he had epigastric pain and nausea earlier as well. He denies chest pain or fever. Denies dysuria. Denies any wounds or injuries. In the emergency department lab work revealed acidosis with a venous pH of 7.286 with pCO2 of 24.6 and HC03 of 11.5. Chemistry panel had carbon dioxide of 9 anion and serum glucose of 291. Patient received 2 L of IV fluids. Hemoglobin A1c was 13.4. Urinalysis with 3+ glucose and 4+ ketones. Beta hydroxybutyrate was 9.11. Potassium level was 3.8. ER initiated insulin drip at 6.5 units per hour, no bolus because glucose level was below 300. IV fluids with potassium ordered. Oral potassium 60 mEq given at the initiation of insulin drip. Patient admitted to the ICU for DKA protocol including hourly fingerstick glucose and titration of drip as well as IV fluids with dextrose if glucose is below 250. Repeat metabolic panels ordered every 4-6 hours. Will recheck VBG, Beta-hydroxybutyrate, magnesium, renal function panel, CMP and CBC as part of AM labs in the morning. Also, due to shortness of breath for 2 weeks, considered CTA to rule out PE but patient not tachycardic or hypoxic. His increased respirations are due to compensation attempts against metabolic acidosis as he has been in DKA for a while (it seems.) We decided to just check CXR in the morning when Radiology comes to the ICU. Will check D-Dimer, BNP with morning labs. Repeat metabolic panel shows carbon dioxide still very low at 10 with glucose at 255. Second troponin was negative. EKGs have ST segment changes (likely early repolarization) but they are definitely different from each other and different from prior EKG on file. patient was taken off IV insulin, as repeat BMP showed anion gap is closed and x ray tech started the patient on long acting insulin will start on long active insulin and monitor, and metformin, patient was seen by music educator and was educated, patient had significant EKG is changes, seen by business systems analyst suspect the EKG changes are 2/2 metabolic acidosis due to DKA no further workup is needed . clinically stable, today transferred out of ICU. patient stats feeling better, patient is insturcted he must see an eye doctor as soon as possible for a diabetes eye exam. Review of Systems Review of Systems: All systems reviewed & are unremarkable except as noted in HPI and below Exam Narrative: Patient is comfortable, NAD HEENT: eyes are clear and none icteric LUNGS:CTA HEART: RR S1S2 ABD: BS+, Soft and nontender Lower extremities: no edema SKIN: nonjaundiced Neuro: grossly intact. Objective Data Vital Signs Vital Signs: Vital Signs - 24 hr 08/21/24 20:00 08/21/24 20:25 08/21/24 20:27 Temperature Pulse Rate 89 89 97 Respiratory Rate 15 20 Blood Pressure Pulse Oximetry 98 99 Oxygen Delivery Room Air Room Air Fraction of Inspired Oxygen 21 08/21/24 23:04 08/22/24 00:00 08/22/24 00:00 Temperature 36.8 C Pulse Rate 74 64 68 Respiratory Rate 19 16 Blood Pressure 107/78 Pulse Oximetry 98 98 Oxygen Delivery Room Air Fraction of Inspired Oxygen 08/22/24 03:54 08/22/24 04:00 08/22/24 08:00 Temperature Pulse Rate 68 73 75 Respiratory Rate 16 17 Blood Pressure Pulse Oximetry 98 96 Oxygen Delivery Room Air Room Air Fraction of Inspired Oxygen 08/22/24 08:00 08/22/24 08:29 08/22/24 08:49 Temperature 36.8 C Pulse Rate 78 75 82 Respiratory Rate 17 Blood Pressure 96/64 L Pulse Oximetry 96 97 Oxygen Delivery Room Air Fraction of Inspired Oxygen 21 08/22/24 16:00 08/22/24 18:00 Temperature 36.9 C 36.9 C Pulse Rate 82 80 Respiratory Rate 18 18 Blood Pressure 107/74 110/68 Pulse Oximetry 95 95 Oxygen Delivery Fraction of Inspired Oxygen Intake/Output Intake/Output: Intake & Output 08/19/24 08/20/24 08/21/24 08/22/24 23:59 23:59 23:59 23:59 Intake Total 634.7 4437.7 1330 Output Total 450 2675 1100 Balance 184.7 1762.7 230 Meds/Results Medications: Active Medications Generic Name Dose Route Start Last Admin Trade Name Freq PRN Reason Stop Dose Admin Acetaminophen 650 mg 08/20/24 17:39 Acetaminophen 325 Mg Tablet PO Q4H PRN Mild Pain (1-3) or Fever Dextrose 12.5 gm 08/21/24 14:07 Dextrose 50% 25 Gm/50 Ml Syringe IV PUSH PRN PRN Hypoglycemia Protocol Enoxaparin Sodium 40 mg 08/21/24 09:00 08/22/24 07:43 Enoxaparin 40 Mg/0.4 Ml Syringe SUB-Q 40 mg DAILY PORTILLO Administration Glucagon 1 mg 08/21/24 14:07 Glucagon For Inj 1 Mg Vial IM PRN PRN Hypoglycemia Protocol Glucose 15 gm 08/21/24 14:07 Glucose Oral Gel 15 Gm Of Glucse In 37.5 Gm Tube PO PRN PRN Hypoglycemia Protocol Dextrose 1,000 mls @ 100 mls/hr 08/21/24 14:07 Dextrose 5% 1,000 Ml IVPB PRN PRN Hypoglycemia Protocol Insulin Aspart 5 units 08/22/24 08:00 08/22/24 16:46 Insulin Aspart (*Bkc) 100 Units/Ml 0.067 units/kg (5 units) 5 units SUB-Q Administration TIDWM [facility] Insulin Aspart 3 - 6 units 08/22/24 08:00 08/22/24 16:47 Insulin Aspart (*Bkc) 100 Units/Ml SUB-Q Not Given TIDWM [facility] Protocol Insulin Aspart 1 - 3 units 08/22/24 21:00 Insulin Aspart (*Bkc) 100 Units/Ml SUB-Q HS [facility] Protocol Insulin Glargine 24 units 08/22/24 09:00 08/22/24 07:43 Insulin Glargine (*Bkc) 100 Units/Ml SUB-Q 24 units DAILY PORTILLO Administration Metformin HCl 1,000 mg 08/22/24 17:00 08/22/24 16:48 Metformin Hcl 500 Mg Tablet PO 1,000 mg BIDWM [facility] Administration Ondansetron HCl 4 mg 08/20/24 17:39 Ondansetron Inj 4 Mg/2 Ml Vial IV PUSH Q4H PRN Nausea Pantoprazole Sodium 40 mg 08/22/24 09:00 08/22/24 07:43 Pantoprazole Sodium Iv 40 Mg Vial IV PUSH 40 mg QAM PORTILLO Administration Perflutren Lipid Microsphere 0 ml 08/21/24 00:13 Perflutren Lipid Microspheres 1.5 Ml Vial Diluted To 10 Ml Total Volume IV PUSH 08/24/24 00:13 ONCE PRN adequate visualization Protocol Simvastatin 20 mg 08/23/24 09:00 Simvastatin 20 Mg Tablet PO DAILY [facility] Radiology Results: ITS Impressions Chest X-Ray 08/21/24 05:56 Impression: Clear lungs. Low lung volumes. Labs Labs: Laboratory Results - last 24 hr 08/21/24 08/22/24 08/22/24 19:54 04:56 07:23 WBC 3.8 L RBC 4.58 L Hgb 13.9 L Hct 39.4 L MCV 86.0 MCH 30.3 MCHC 35.3 RDW 12.6 Plt Count 153 MPV 10.3 Immature Gran % (Auto) 0.3 Neut % (Auto) 52.4 Lymph % (Auto) 38.1 [place] % (Auto) 8.1 Eos % (Auto) 0.8 Baso % (Auto) 0.3 Lymph # (Auto) 1.45 [place] # (Auto) 0.3 Eos # (Auto) 0.0 Baso # (Auto) 0.0 Abs Immat Gran (auto) 0.01 Absolute Neuts (auto) 2.0 Absolute Nucleated RBC 0.000 Nucleated RBC % 0.0 Sodium 132 L Potassium 3.8 Chloride 103 Carbon Dioxide 22 Anion Gap 7 BUN 5 L Creatinine 0.48 L Estim Creat Clear Calc 130 Estimated GFR > 60 Glucose 334 H POC Capillary Glucose 288 H 325 H Calcium 8.4 Phosphorus 3.3 Magnesium 1.9 08/22/24 08/22/24 11:15 16:19 WBC RBC Hgb Hct MCV MCH MCHC RDW Plt Count MPV Immature Gran % (Auto) Neut % (Auto) Lymph % (Auto) [place] % (Auto) Eos % (Auto) Baso % (Auto) Lymph # (Auto) [place] # (Auto) Eos # (Auto) Baso # (Auto) Abs Immat Gran (auto) Absolute Neuts (auto) Absolute Nucleated RBC Nucleated RBC % Sodium Potassium Chloride Carbon Dioxide Anion Gap BUN Creatinine Estim Creat Clear Calc Estimated GFR Glucose POC Capillary Glucose 192 H 195 H Calcium Phosphorus Magnesium Quality VTE Prophylaxis VTE prophylaxis: pharmacologic ordered
[2024-08-22] MEDS: ACETAMINOPHEN 325 MG TABLET 650 MG PO (22:55)
[2024-08-23] VITALS: BP 98/59; PULSE 63; RESP 16; TEMP 36.5; O2SAT 100
[2024-08-23 04:57] VITALS: BP 104/62; PULSE 60; RESP 16; TEMP 36.3; O2SAT 94
[2024-08-23] MEDS: INSULIN ASPART (*BKC) 100 UNITS/ML SUB-Q ×4 (09:05→12:54)
[2024-08-23] MEDS: PANTOPRAZOLE 40 MG TABLET PO (09:05)
[2024-08-23] MEDS: ACETAMINOPHEN 325 MG TABLET 650 MG PO (09:05)
[2024-08-23] MEDS: SIMVASTATIN 20 MG TABLET PO (09:05)
[2024-08-23] MEDS: ENOXAPARIN 40 MG/0.4 ML SYRINGE SUB-Q (09:06)
[2024-08-23] MEDS: INSULIN GLARGINE (*BKC) 100 UNITS/ML 24 UNITS SUB-Q (09:11)
--- NOTE | 2024-08-23 12:28 | P.DS_ITS ---
DS: Admitting Diagnosis Discharge Date 08/23/24 Admitting Diagnosis DKA DS: Discharge Diagnosis Discharge Diagnosis (1) DKA (diabetic ketoacidosis): Qualifiers: Diabetes mellitus complication detail: without coma Diabetes mellitus type: other specified (including DEL) Qualified Code(s): E13.10 - Other specified diabetes mellitus with ketoacidosis without coma Code(s): E11.10 - Type 2 diabetes mellitus with ketoacidosis without coma Status: Acute Assessment and Plan: -epigastric pain, nausea and elevated blood sugar on presentation -only taking metformin, ran out Invokana and insulin discontinued previously -Prior history of DKA in the past as well -symptoms worsening over 2 weeks -initial metabolic panel with anion gap of 23, carbon dioxide 9, beta hydroxybutyrate 9.11, pH 7.286 with significant attempted respiratory compensation with pCO2 of 24.6 -insulin drip without bolus given in the ER due to blood sugar in the 200s -potassium was 3.8 initially, potassium containing fluids started and oral potassium 60 mEq given -repeat metabolic panel anion gap 18, carbon dioxide 10, glucose 255--continue insulin drip and every 4 hour metabolic panels -ICU attending aware of patient in ICU, will see in the morning (2) Abnormal ECG: Code(s): R94.31 - Abnormal electrocardiogram [ECG] [EKG] Status: Acute Assessment and Plan: -Initial EKG in ER showed ST elevation in Leads 1, 2, AVF, AVL, V5 and V6 with ST depression in AVR -Initial troponin normal -Second EKG shows ST elevation in Leads 3, AVF, V2, V3, V4, V5, V6 with ST depression in Lead 1 and AVL -Repeat troponin pending (3) 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: Code(s): Z75.8 - Other problems related to medical facilities and other health care Status: Chronic Assessment and Plan: -Chadian speaking patient (4) Hyperlipidemia: Qualifiers: Hyperlipidemia type: mixed hyperlipidemia Qualified Code(s): E78.2 - Mixed hyperlipidemia Code(s): E78.5 - Hyperlipidemia, unspecified Status: Chronic Assessment and Plan: -Previously on simvastatin, ordered routine lipid panel -Elevated triglycerides, total cholesterol and LDL (5) Depression with anxiety: Code(s): F41.8 - Other specified anxiety disorders Status: Chronic Assessment and Plan: -Stable (6) Epigastric pain: Code(s): R10.13 - Epigastric pain Status: Acute Assessment and Plan: -Abnormal EKGs (Early Repolarization) with negative troponin -Likely due to DKA/GI cause rather than cardiac related -Lipase normal, bilirubin normal, LFTs normal -Associated with nausea, no vomiting and improved without pain medications since arrival to ER Plan patient was taken off IV insulin, as repeat BMP showed anion gap is closed and life insurance agent started the patient on long acting insulin will start on long active insulin and monitor, and metformin, patient was seen by marketing and communications officer and was educated, patient had significant EKG is changes, seen by career placement services counselor suspect the EKG changes are 2/2 metabolic acidosis due to DKA no further workup is needed . clinically stable, today transferred out of ICU. patient stats feeling better, patient is insturcted he must see an eye doctor as soon as possible for a diabetes eye exam. Admit to ICU Full Code DS: Summary Hospital Course Hospital Course: patient was taken off IV insulin, as repeat BMP showed anion gap is closed and life insurance agent started the patient on long acting insulin will start on long active insulin and monitor, and metformin, patient was seen by marketing and communications officer and was educated, patient had significant EKG is changes, seen by car diologist suspect the EKG changes are 2/2 metabolic acidosis due to DKA no further workup is needed . clinically stable, today transferred out of ICU. patient stats feeling better, patient is instructed he must see an eye doctor as soon as possible for a diabetes eye exam. today patient is clinically stable, he feels better will discharge patient to follow up with primary care provider as soon as possible. Time Spent with Patient Time attestation: Total time spent providing and/or coordinating discharge services: Exam Narrative: Patient is comfortable, NAD HEENT: eyes are clear and none icteric LUNGS:CTA HEART: RR S1S2 ABD: BS+, Soft and nontender Lower extremities: no edema SKIN: nonjaundiced Neuro: grossly intact. DS: Data Data Completed and Pending Labs on day of discharge: Labs from last 24 hours 08/23/24 08/23/24 08/22/24 12:15 07:43 20:37 POC Capillary Glucose 265 H 290 H 229 H 08/22/24 16:19 POC Capillary Glucose 195 H Discharge Plan Discharge Attending physician on discharge: Kale Paz Consulting providers: Dru Jacinto; Rachele Villasenor; Ad Dodson; Derek Urias; Sully Toscano; Marshall Black; Zev Leos Discharging Clinician: Jasen Tsai Patient Disposition: Home Activity: as tolerated Diet: heart healthy Discharge Instructions: patient to follow dietary instruction from marketing and communications officer, follow up with his primary care provider as soon possible, patient is instructed to see an eye doctor for a diabetes eye exam, patient is instructed if symptoms worsen to go to nearest ER. Patient Instructions: Antibiotic Form, Diabetic Ketoacidosis (GEN) Patient Language: Chadian Stand Alone Forms: General Discharge Information Follow-up/Referrals: Edda,MUKUND Jauregui [Primary Care Provider] - Discharge Medications: New insulin glargine [Lantus U-100 Insulin] 100 unit/mL Solution 24 unit subcut DAILY Qty: 10 0RF dextrose [Glutose-15] 40 % Gel 15 g PO PRN PRN (Reason: Hypoglycemia) Qty: 15 0RF insulin aspart U-100 [Novolog U-100 Insulin aspart] 100 unit/mL Solution 1 - 3 unit subcut HS Qty: 10 0RF Protocol: Insulin Corrective Moderate-Dose Condition: glucose < 70 mg/dl Dose/Route: Follow hypoglycemia orders Condition: glucose 70-200 mg/dl Dose/Route: No additional insulin Condition: glucose 201-250 mg/dl Dose/Route: 1 units sub-Q Condition: glucose 251-300 mg/dl Dose/Route: 2 units sub-Q Condition: glucose 301-350 mg/dl Dose/Route: 2 units sub-Q Condition: glucose 351-400 mg/dl Dose/Route: 3 units sub-Q Condition: glucose > 400 mg/dl Dose/Route: Call MD insulin aspart U-100 [Novolog U-100 Insulin aspart] 100 unit/mL Solution 5 unit subcut TIDWM Qty: 10 0RF insulin aspart U-100 [Novolog U-100 Insulin aspart] 100 unit/mL Solution 3 - 6 unit subcut TIDWM Qty: 10 0RF Protocol: Insulin Corrective Moderate-Dose Condition: glucose < 70 mg/dl Dose/Route: Follow hypoglycemia orders Condition: glucose 70-200 mg/dl Dose/Route: No additional insulin Condition: glucose 201-250 mg/dl Dose/Route: 3 units sub-Q Condition: glucose 251-300 mg/dl Dose/Route: 4 units sub-Q Condition: glucose 301-350 mg/dl Dose/Route: 5 units sub-Q Condition: glucose 351-400 mg/dl Dose/Route: 6 units sub-Q Condition: glucose > 400 mg/dl Dose/Route: Call MD Protocol Text: *No Correction Dose at Bedtime* metformin 1,000 mg tablet 1,000 mg PO BID Qty: 60 0RF pantoprazole 40 mg Tablet,Delayed Release (Dr/Ec) 40 mg PO QAM Qty: 30 0RF Continued simvastatin 20 mg tablet 20 mg PO DAILY (DME) blood-glucose meter [[employer] Verio Flex meter] Misc Qty: 1 0RF Rx Instructions: May substitute to in-stock meter and/or covered by insurance. QAM (DME) lancets [OneTouch Delica Plus Lancet] 30 gauge misc Qty: 1 0RF Rx Instructions: May substitute to in-stock and/or covered by insurance lancets. QAM. Use As Directed Held Invokana 300 mg tablet 300 mg PO DAILY Hold Instructions: until seen by primary care as patient is unable to afford the medication Discontinued insulin glargine [Lantus Solostar U-100 Insulin] 100 unit/mL (3 mL) insulin pen 10 unit subcut QAM metformin 500 mg Tablet 1,000 mg PO BID Date of admission: 08/20/24 17:40 Primary Care Provider: EddaIrene Admitting Provider: Kale Paz Attending physician on admission: Jasen Tsai Condition: Stable
== END 2024-08-23 13:28 | disposition home or self-care (01) ==
LOC: ANHED 16:20 → ANHICU 21:44 → ANH2MED 08-23 12:23 → ANHICU 08-24 07:10
PROVIDERS: Internal Medicine; Nurse Practitioner; Admitting Provider Internal Medicine; Emergency Provider Student in an Organized Health Care Education/Training Program; PCP Physician Assistant; Visit Provider Family Medicine
DX: E11.10 Type 2 diabetes mellitus with ketoacidosis without coma (principal); R94.31 Abnormal electrocardiogram [ECG] [EKG]; E78.2 Mixed hyperlipidemia; F41.8 Other specified anxiety disorders; R10.13 Epigastric pain; Z75.8 Other problems related to medical facilities and other health care; Z86.16 Personal history of COVID-19; Z79.4 Long term (current) use of insulin; Z79.84 Long term (current) use of oral hypoglycemic drugs
CPT/HCPCS: 36415; 71045; 80048; 80053; 80061; 80069; 81001; 82010; 82550; 82803; 82948; 83036; 83690; 83735; 83880; 84100; 84484; 85025; 85380; 87641; 93005; 93306; 96361; 96365; 96366; 96374; 96375; 99285; A9270; G0378; J1650; J1815; J2470; J3475; J3480; J7030; J7120